=== PATIENT | male | born 1940 | race Two or more races ===

== ENCOUNTER 2017-07-19 08:55 | Day surgery (SDC) | payer MEDICARE ==
[2017-07-16 11:43] VITALS: BMI 25.8
[2017-07-19 10:19] LABS: Glucose,Whole Blood 114 mg/dL (75-99)
[2017-07-19] MEDS: LACTATED RINGERS 1,000 ML IV SCH ×2 (10:19→10:23)
[2017-07-19 10:21] VITALS: TEMP 98.6
[2017-07-19] MEDS ORDERED: PROPOFOL 10 MG/ML 20 ML VIAL IV ONE (10:25)
[2017-07-19 10:54] VITALS: RESP 16
--- NOTE | 2017-07-19 10:54 | P.PCN ---
Date of Procedure: 07/19/17 Procedure(s) Performed: Procedure: Colonoscopy and polypectomy. Preoperative diagnosis: Screening for neoplasia. Postoperative diagnosis: Small rectal polyp snared but no large polyps or cancer. Preparation: HalfLytely prep. Sedation: Was provided by anesthesia. Brief clinical history: The patient is a 77-year-old male who is scheduled for this evaluation for screening for neoplasia. He had a prior exam more than 10 years ago. The patient has no abdominal complaints, bleeding or anemia. Procedure: With the patient on his left lateral decubitus position and after informed consent and adequate sedation, the perianal area was inspected and it did not show any fissures or fistulas. There were no masses felt on digital rectal examination. The Olympus CFQ 160L video colonoscope was then inserted in the rectum in the usual fashion and advanced to the cecum. The mucosa appeared healthy. There was a small polyp in the rectum close to the anorectal junction which was snared and retrieved by suction but there were no large polyps or cancer or other significant pathology. I retroflexed the endoscope in the rectum before the endoscope was withdrawn. The patient tolerated the procedure well. Plan: The patient was reassured. Will await pathology results. Consideration can be given for repeat exam in 3-5 years depending on his overall health. He will follow up with you with as planned.
[2017-07-19 11:14] VITALS: BP 154/77; PULSE 69
== END 2017-07-19 11:50 | disposition home or self-care (01) ==
LOC: ORWHC2ENDO 08:55
DX: Z12.11 Encounter for screening for malignant neoplasm of colon (principal); K62.1 Rectal polyp; E11.9 Type 2 diabetes mellitus without complications; I10 Essential (primary) hypertension; E78.5 Hyperlipidemia, unspecified; Z79.84 Long term (current) use of oral hypoglycemic drugs; Z79.899 Other long term (current) drug therapy
CPT/HCPCS: 45385; 88305; J2704; 45380

== ENCOUNTER → 2019-01-24 | Outpatient (CLI) | payer MEDICARE ==
--- NOTE | 2019-01-25 15:07 | P.ARTDOP ---
Arterial Doppler LOWER EXTREMITY ARTERIAL DOPPLER: DATE OF SERVICE: 01/24/2019 Reason for study: Bilateral calf pain with walking. Doppler waveforms: Atypical bilaterally throughout. Pulse volume recording: []. Pressure gradients: Above the low thigh bilaterally. Ankle-brachial indices: 0.52 on the right and 0.44 on the left. Toe pressures: [] on the right, [] on the left Impression: Moderate bilateral iliofemoral occlusive disease. Suggest vascular surgical consultation..
== END | disposition home or self-care (01) ==
LOC: RADUSWWP 01-17 12:47
PROVIDERS: ATTEND Family Medicine
DX: I77.89 Other specified disorders of arteries and arterioles (principal)
CPT/HCPCS: 93923

== ENCOUNTER → 2019-03-02 | Outpatient (CLI) | payer MEDICARE ==
[2019-03-02 08:52] LABS: HCT 39.2 % (39.0-53.0); HGB 13.3 gm/dL (13.0-17.5); MCH 30.9 pg (25.0-35.0); MCHC 33.9 g/dL (31.0-37.0); MCV 91.2 fL (80.0-100.0); Mean Platelet Volume 6.6; Platelet Count 252 k/uL (150-450); WBC 6.5 k/uL (3.8-10.6)
[2019-03-02 09:02] LABS: African American GFR (CKD) >90 (>60 ml/min/1.73 sqM); Anion Gap 9 mmol/L; Blood Urea Nitrogen 14 mg/dL (9-20); Carbon Dioxide 25 mmol/L (22-30); Chloride 97 mmol/L (98-107); Non-African American GFR(CKD) 89 (>60 ml/min/1.73 sqM); Potassium 4.8 mmol/L (3.5-5.1); Sodium 131 mmol/L (137-145)
== END | disposition home or self-care (01) ==
LOC: LABPAT 08:25
PROVIDERS: ATTEND Internal Medicine Interventional Cardiology
DX: Z01.812 Encounter for preprocedural laboratory examination (principal); I70.213 Atherosclerosis of native arteries of extremities with intermittent claudication, bilateral legs
CPT/HCPCS: 80051; 82565; 84520; 85027

== ENCOUNTER → 2019-04-14 | Outpatient (CLI) | payer MEDICARE ==
[2019-04-14 07:32] LABS: HCT 39.1 % (39.0-53.0); HGB 13.1 gm/dL (13.0-17.5); MCH 30.5 pg (25.0-35.0); MCHC 33.5 g/dL (31.0-37.0); MCV 90.8 fL (80.0-100.0); Mean Platelet Volume 6.5; Platelet Count 264 k/uL (150-450); RDW 12.8 % (11.5-15.5); WBC 5.8 k/uL (3.8-10.6)
[2019-04-14 07:44] LABS: African American GFR (CKD) >90 (>60 ml/min/1.73 sqM); Anion Gap 9 mmol/L; Blood Urea Nitrogen 17 mg/dL (9-20); Carbon Dioxide 25 mmol/L (22-30); Chloride 94 mmol/L (98-107); Non-African American GFR(CKD) 89 (>60 ml/min/1.73 sqM); Sodium 128 mmol/L (137-145)
== END | disposition home or self-care (01) ==
LOC: LABPAT 06:37
PROVIDERS: ATTEND Internal Medicine Interventional Cardiology
DX: Z01.812 Encounter for preprocedural laboratory examination (principal); I70.213 Atherosclerosis of native arteries of extremities with intermittent claudication, bilateral legs
CPT/HCPCS: 80051; 82565; 84520; 85027

== ENCOUNTER 2019-04-20 07:01 | Day surgery (SDC) | payer MEDICARE ==
[2019-04-12 13:39] VITALS: BMI 25.8
[~2019-04-20 07:01] MED LIST: ALPRAZolam 0.25 MG TAB PO PRN; ALPRAZolam 0.5 MG TAB PO PRN; ASPIRIN 325 MG TAB PO STA; SODIUM CHLORIDE 0.9% 1,000 ML in EMPTY BAG 1 BAG IV ONE
[2019-04-20 07:44] LABS: Glucose,Whole Blood 124 mg/dL (75-99)
[2019-04-20] MEDS: MIDAZOLAM 2 MG/2 ML VIAL IV ONE ×2 (09:19→10:13)
[2019-04-20] MEDS ORDERED: LIDOCAINE 1% INJ 10MG/ML (20 ML MDV) SQ ONE (09:26)
[2019-04-20] MEDS ORDERED: SODIUM CHLORIDE 0.9% 500 ML 500 ML with niCARdipine 6.25 MG, NITROGLYCERIN-D5W PMX 0.05... IV ONE ×4 (10:00)
[2019-04-20] MEDS: fentaNYL (PF) 50 MCG/ML 2 ML AMP IVP ONE ×2 (10:37→11:27)
[2019-04-20] MEDS ORDERED: CLOPIDOGREL 75 MG TAB PO ONE (11:14)
[2019-04-20] MEDS ORDERED: IOPAMIDOL-250 100ML BTL INTRAARTER ONE (11:32)
[2019-04-20] MEDS ORDERED: HYDROmorphone 1 MG/ML 1 ML SYRINGE IVP ONE (11:51)
[2019-04-20] MEDS ORDERED: HYDROmorphone 0.5 MG/0.5 ML SYRINGE IVP PRN (11:51)
--- NOTE | 2019-04-20 12:29 | IR ---
EXAMINATION TYPE: IR stent intravas non coronary DATE OF EXAM: 04/20/2019 COMPARISON: NONE HISTORY: Fluoroscopy time. Fluoroscopy was provided to the referring clinician.
--- NOTE | 2019-04-20 14:41 | LTR ---
DATE OF SERVICE; 04/20/2019 RE: Juan Castelan Dear Dr. Chew; Mr. 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 I want to thank you for allowing me to participate in his care and please do not hesitate to call if you have any question or any concern. Sincerely, MD MUMTAZ Parisi / JANNETTEN: [id number] /
[2019-04-20] MEDS: HYDROmorphone 1 MG/ML 1 ML SYRINGE IVP PRN ×2 (17:05→21:05)
[2019-04-20] MEDS: SODIUM CHLORIDE 0.9% 1,000 ML in EMPTY BAG 1 BAG IV SCH ×9 (17:09→23:17)
[2019-04-20] MEDS ORDERED: SODIUM CHLORIDE 0.9% 1,000 ML IV SCH (17:15)
[2019-04-20 17:28] LABS: Glucose,Whole Blood 144 mg/dL (75-99)
[2019-04-20 20:39] LABS: Glucose,Whole Blood 179 mg/dL (75-99)
--- NOTE | 2019-04-20 23:54 | PCN ---
PROCEDURE NOTE PERCUTANEOUS PERIPHERAL INTERVENTION: DATE OF SERVICE: 04/20/2019 PERFORMING PHYSICIAN: Calos Casarez MD. PROCEDURES PERFORMED: 1. Left lower extremity angiogram. 2. Selective left anterior tibial artery angiogram. 3. Successful crossing of chronic total occlusion of the left superficial femoral artery. 4. Intravascular ultrasound (IVUS) of the left superficial femoral artery. 5. Balloon angioplasty and stenting of the left superficial femoral artery using 3 self-expandable stents with good angiographic results. 6. Selective right common femoral artery angiogram. INDICATION: This is a pleasant 78-year-old gentleman who was diagnosed recently with critical limb ischemia and nonhealing ulcer involving the left foot. He underwent an angiogram that revealed severe aortoiliac disease with severe disease involving the left common iliac artery as well as severe femoropopliteal disease with occluded bilateral SFA. APPROACH: Right common femoral artery and left anterior tibial artery. COMPLICATIONS: None. LEVEL OF SEDATION: Moderate, with sedation length of 136 minutes. PROCEDURE DESCRIPTION: After obtaining informed consent, the patient was brought to the cardiac chemistry laboratory technician. Initially I accessed the right common femoral artery using micropuncture technique under ultrasound guidance. The micropuncture wire passed easily. Then I placed an 11 cm 6-Ukrainian sheath in the right common femoral artery. Attempt to go up and over was unsuccessful because of the extreme calcification of the aortoiliac segments as well as extreme tortuosity. Because of that, I aborted the contralateral retrograde approach and I decided to go in ipsilateral retrograde approach from the left anterior tibial artery. I did access the left anterior tibial artery using micropuncture technique under ultrasound guidance. Then I placed a slender 5/6 sheath. Subsequently the patient was connected to a cocktail infusion including heparin, verapamil and nitroglycerins. After that I was able to cross the chronic total occlusion of the left SFA using 0.018 schaefer-tip glidewire with the backup support of 0.018 CXI catheter. I was able to advance the catheter all the way to the left common femoral artery, where I did selective left common femoral artery angiogram to prove that I was in the true lumen. After that I did exchange my 0.018 wire for an 0.014 wire. Then I did intravascular ultrasound (IVUS) of the left SFA, which showed that I was in the subintimal space most of the time. I was able to get a diameter of between 6 and 7 mm. After that I did balloon angioplasty of the whole left SFA using a Chocolate balloon which was a 6 x 120 mm balloon. After that the following angiogram showed inadequate angiographic results, and I decided to stent the whole SFA. I deployed in the proximal left SFA a 7 x 140 mm Zilver PTX and in the mid left SFA a 7 x 140 mm Zilver PTX, and in the distal left SFA a 7 x 150 Everflex self-expandable stent. I post-dilated the 3 stents using a 6 mm balloon. Following angiogram showed good angiographic results. The stent was slightly unexpandable in the mid portion. After that I did selective left anterior tibial artery angiogram which showed good flow below the knee, and at that point the procedure was completed without any complication. POST-PROCEDURE MANAGEMENT: 1. Dual anti-platelet therapy. 2. Risk factor modifications. 3. SPRING UPHOLSTERER of the left iliac. 4. At the same time of the SPRING UPHOLSTERER of the left iliac, I would check the left SFA. 5. Possible endarterectomy of the left profunda down the line as well if the ulcer does not heal. MMODL / IJN: [id number] /
[2019-04-21 06:10] LABS: Glucose,Whole Blood 125 mg/dL (75-99)
[2019-04-21] MEDS: SODIUM CHLORIDE 0.9% 1,000 ML in EMPTY BAG 1 BAG IV SCH (06:22)
[2019-04-21 07:23] LABS: African American GFR (CKD) >90 (>60 ml/min/1.73 sqM); Anion Gap 9 mmol/L; Blood Urea Nitrogen 15 mg/dL (9-20); Calcium 9.5 mg/dL (8.4-10.2); Carbon Dioxide 24 mmol/L (22-30); Chloride 97 mmol/L (98-107); Glucose 133 mg/dL (74-99); Non-African American GFR(CKD) >90 (>60 ml/min/1.73 sqM); Potassium 4.6 mmol/L (3.5-5.1); Sodium 130 mmol/L (137-145)
[2019-04-21 07:37] LABS: Basophils % (A) 0 %; Eosinophils # (A) 0.2 k/uL (0-0.7); Eosinophils % (A) 2 %; HCT 40.4 % (39.0-53.0); HGB 13.2 gm/dL (13.0-17.5); Lymphocytes # (A) 0.9 k/uL (1.0-4.8); Lymphocytes % (A) 10 %; MCHC 32.8 g/dL (31.0-37.0); MCV 91.6 fL (80.0-100.0); Mean Platelet Volume 6.4; Monocytes # (A) 0.6 k/uL (0-1.0); Monocytes % (A) 6 %; Neutrophils # (A) 6.9 k/uL (1.3-7.7); Neutrophils % (A) 77 %; Platelet Count 268 k/uL (150-450); RBC 4.41 m/uL (4.30-5.90); RDW 12.7 % (11.5-15.5)
[2019-04-21 08:13] VITALS: BP 155/68; PULSE 81; RESP 18; TEMP 98.1
--- NOTE | 2019-04-21 08:56 | DS ---
DISCHARGE SUMMARY ADMISSION DATE: April 20, 2019. DISCHARGE DATE: April 21, 2019 BRIEF HISTORY: This is a 78-year-old gentleman who underwent yesterday successful recanalizing chronic total occlusion of the left SFA from right common femoral artery and left anterior tibial approach. The procedure was performed without any complication with good angiographic results. The patient was seen this morning. The right groin is soft and nontender and without any bruises and he does have 1+ dorsalis pedis pulse. The patient is going to be discharged home on dual antiplatelet therapy and I will follow up with the patient next week in the office. MMODL / IJN: [id number] /
[2019-04-21] MEDS ORDERED: LISINOPRIL 20 MG TAB PO SCH (09:00)
[2019-04-21] MEDS ORDERED: GARLIC PO SCH (09:00)
[2019-04-21] MEDS ORDERED: OREGANO PO SCH (09:00)
[2019-04-21] MEDS ORDERED: COGNIUM PO SCH (09:00)
[2019-04-21] MEDS ORDERED: CLOPIDOGREL 75 MG TAB PO SCH (09:00)
[2019-04-21] MEDS ORDERED: ASPIRIN 325 MG TAB PO SCH (09:00)
[2019-04-21] MEDS ORDERED: ASCORBIC ACID 500 MG TAB PO SCH (09:00)
[2019-04-21] MEDS ORDERED: CHOLECALCIFEROL 1,000 UNIT TAB PO SCH (09:00)
[2019-04-21] MEDS ORDERED: ATORVASTATIN 10 MG TAB PO SCH (09:00)
== END 2019-04-21 10:17 | disposition home or self-care (01) ==
LOC: CATHCVL 07:01 → 3SCARD 14:50 → CATHCVL 04-21 10:17
PROVIDERS: ATTEND Internal Medicine Interventional Cardiology
DX: I70.212 Atherosclerosis of native arteries of extremities with intermittent claudication, left leg (principal); I70.92 Chronic total occlusion of artery of the extremities; Z72.0 Tobacco use; E11.51 Type 2 diabetes mellitus with diabetic peripheral angiopathy without gangrene; E11.621 Type 2 diabetes mellitus with foot ulcer; L97.521 Non-pressure chronic ulcer of other part of left foot limited to breakdown of skin; I10 Essential (primary) hypertension; E78.5 Hyperlipidemia, unspecified; Z79.84 Long term (current) use of oral hypoglycemic drugs; Z82.49 Family history of ischemic heart disease and other diseases of the circulatory system; Z79.2 Long term (current) use of antibiotics; Z79.899 Other long term (current) drug therapy
CPT/HCPCS: 37226; 85347; 37252; 80048; 85025; C1894; C1769 ×5; C1725 ×2; C1714; C1753; C1876; C1874; J2250; J1644 ×2; J2001; J3010; J1170; Q9966

== ENCOUNTER → 2019-05-19 | Outpatient (CLI) | payer MEDICARE ==
[2019-05-19 07:03] LABS: HGB 13.1 gm/dL (13.0-17.5); MCH 30.1 pg (25.0-35.0); MCHC 33.6 g/dL (31.0-37.0); MCV 89.5 fL (80.0-100.0); Mean Platelet Volume 6.5; Platelet Count 232 k/uL (150-450); RBC 4.37 m/uL (4.30-5.90); RDW 12.9 % (11.5-15.5); WBC 5.5 k/uL (3.8-10.6)
[2019-05-19 07:13] LABS: African American GFR (CKD) >90 (>60 ml/min/1.73 sqM); Anion Gap 9 mmol/L; Blood Urea Nitrogen 14 mg/dL (9-20); Carbon Dioxide 25 mmol/L (22-30); Chloride 94 mmol/L (98-107); Non-African American GFR(CKD) 86 (>60 ml/min/1.73 sqM); Potassium 5.1 mmol/L (3.5-5.1); Sodium 128 mmol/L (137-145)
== END | disposition home or self-care (01) ==
LOC: LABPAT 06:40
PROVIDERS: ATTEND Internal Medicine Interventional Cardiology
DX: Z01.818 Encounter for other preprocedural examination (principal); I70.213 Atherosclerosis of native arteries of extremities with intermittent claudication, bilateral legs
CPT/HCPCS: 36415; 80051; 82565; 84520; 85027

== ENCOUNTER 2019-05-24 07:29 | Day surgery (SDC) | payer MEDICARE ==
[2019-05-23 11:43] VITALS: BMI 24.7
[2019-05-24 08:06] LABS: Glucose,Whole Blood 141 mg/dL (75-99)
[2019-05-24] MEDS ORDERED: LIDOCAINE 1% INJ 10MG/ML (20 ML MDV) SQ ONE (08:49)
[2019-05-24] MEDS: VERAPAMIL SYRINGE (5 MG/10 ML) INTRAARTER ONE ×2 (08:51→10:09)
[2019-05-24] MEDS ORDERED: MIDAZOLAM 2 MG/2 ML VIAL IV ONE (08:51)
[2019-05-24] MEDS ORDERED: HEPARIN SODIUM 1,000 UN/ML (10ML VL) IV ONE (08:52)
[2019-05-24] MEDS ORDERED: fentaNYL (PF) 50 MCG/ML 2 ML AMP IV ONE (09:21)
[2019-05-24] MEDS ORDERED: HYDROmorphone 1 MG/ML 1 ML SYRINGE IVP ONE (09:53)
[2019-05-24] MEDS ORDERED: CLOPIDOGREL 75 MG TAB PO ONE (09:57)
[2019-05-24] MEDS ORDERED: IOPAMIDOL-250 100ML BTL INTRAARTER ONE (10:09)
--- NOTE | 2019-05-24 10:26 | P.PCN ---
Date of Procedure: 05/24/19 Operative Findings: PERCUTANEOUS PERIPHERAL INTERVENTION Performing physician Calos Casarez M.D, RPVI Procedure performed Selective bilateral common and external iliac arteries angiogram Successful stenting of the right external iliac artery using 7.0 x 15 mm Omnilink balloon expandable stent with an excellent angiographic results Gradient measurement across the left common iliac artery Successful stenting of the left common iliac artery using 8.0 x 29 mm Omnilink balloon expandable stent with an excellent angiographic results Indication this is a 59-year-old gentleman who was diagnosed recently was critical limb ischemia and bilateral lower extremities intermittent claudication. He underwent an angiogram which revealed occluded bilateral SFA with severe disease involving bilateral iliacs. He was brought today to undergo an intervention. Approach Right radial artery Complications None Level of sedation Moderate with sedation length of 85 minutes Procedure description After obtaining an informed consent the patient was brought to the cardiac label designer. The right radial artery was cannulated using micropuncture technique, the micropuncture wire passed easily then I place initially a 6-Maltese 11 cm sheath at the right radial artery. Subsequently the patient was given a total of 10,000 use of heparin IV. Also I gave the patient 2 mg of verapamil IV. Subsequently I did selective the right common and external iliac artery using 035 glide advantage wire. Then I did exchange my 11 cm sheath into 110 cm 6- Maltese sheath using the awl 35 glide advantage wire. The sheath was advanced all the way to the right common iliac artery. I did selective right common and right external iliac artery angiogram which revealed critical disease involving the right external iliac artery. Subsequently I did predilatation of the lesion using 6 cm balloon before I deployed 7 x 59 mm Omnilink balloon expandable stent where the stent was positioned under fluoroscopy guidance and deployed under its nominal pressure with the following angiogram showing good angiographic results. After that I did selective the left common and external iliac artery using stiff Glidewire. Then I did selective left common iliac artery and left external iliac artery angiogram which revealed intermediate severe lesion involving the left common iliac artery. I did gradient measurement across it and that came in to be at 18 mmHg and I decided to pursue with percutaneous peripheral intervention. After that I did direct stenting of the lesion using 8.0 x 29 mm Omnilink balloon expandable stent where the stent was positioned under fluoroscopy guidance and deployed under 20 connor for 20 seconds and I posterior to the stent using 10 mm balloon. The following angiogram showed an excellent angiographic results The procedure was completed without any complications By the end I did pull the long sheath and I placed a TR band. The procedure was completed without any complications Postprocedure management Dual antiplatelet therapy to be continued Risk factors modifications Follow-up with the patient
[2019-05-24] MEDS ORDERED: SODIUM CHLORIDE 0.9% 1,000 ML in EMPTY BAG 1 BAG IV SCH (10:30)
[2019-05-24 11:41] LABS: Glucose,Whole Blood 180 mg/dL (75-99)
--- NOTE | 2019-05-24 13:38 | IR ---
EXAMINATION TYPE: IR stent intravas non coronary DATE OF EXAM: 05/24/2019 CLINICAL HISTORY: Peripheral vascular disease. TECHNIQUE: Fluoroscopy. COMPARISON: None. FINDINGS: Fluoroscopic guidance was provided during abdominal angiogram with iliac stenting procedur e performed by Dr. Casarez. A total of 23.7 minute of fluoroscopic time was utilized during the procedu re and 15 cine runs are acquired. Please refer to procedure note for further details if necessary. IMPRESSION: As Above.
[2019-05-24] MEDS: ACETAMINOPHEN TAB 325 MG TAB PO PRN ×2 (15:39→21:46)
[2019-05-24 16:34] LABS: Glucose,Whole Blood 272 mg/dL (75-99)
[2019-05-24 21:00] LABS: Glucose,Whole Blood 148 mg/dL (75-99)
[2019-05-25 00:38] VITALS: RESP 18
[2019-05-25 06:21] LABS: Glucose,Whole Blood 154 mg/dL (75-99)
[2019-05-25 06:40] LABS: HCT 32.1 % (39.0-53.0); HGB 10.9 gm/dL (13.0-17.5); MCH 30.5 pg (25.0-35.0); MCHC 33.9 g/dL (31.0-37.0); Mean Platelet Volume 6.5; Platelet Count 236 k/uL (150-450); RBC 3.57 m/uL (4.30-5.90); RDW 13.1 % (11.5-15.5); WBC 7.8 k/uL (3.8-10.6)
[2019-05-25 06:53] LABS: African American GFR (CKD) >90 (>60 ml/min/1.73 sqM); Anion Gap 4 mmol/L; Blood Urea Nitrogen 17 mg/dL (9-20); Calcium 8.9 mg/dL (8.4-10.2); Carbon Dioxide 26 mmol/L (22-30); Chloride 98 mmol/L (98-107); Glucose 128 mg/dL (74-99); Non-African American GFR(CKD) >90 (>60 ml/min/1.73 sqM); Potassium 4.6 mmol/L (3.5-5.1); Sodium 128 mmol/L (137-145)
[2019-05-25 07:07] LABS: Band Neutrophils % 1 %; Eosinophils # (M) 0.39 k/uL (0-0.7); Lymphocytes # (M) 1.01 k/uL (1.0-4.8); Monocytes # (M) 0.39 k/uL (0-1.0); Neutrophils % (M) 76 %; Nucleated Red Blood Cells 0 /100 WBC (0-0); Total Cells Counted 100
[2019-05-25] MEDS: ACETAMINOPHEN TAB 325 MG TAB PO PRN (07:47)
[2019-05-25 08:00] VITALS: BP 127/61; PULSE 82; TEMP 97.8
[2019-05-25] MEDS ORDERED: GARLIC PO SCH (09:00)
[2019-05-25] MEDS ORDERED: ASPIRIN 325 MG TAB PO SCH (09:00)
[2019-05-25] MEDS ORDERED: CLOPIDOGREL 75 MG TAB PO SCH (09:00)
[2019-05-25] MEDS ORDERED: COGNIUM PO SCH (09:00)
[2019-05-25] MEDS ORDERED: LISINOPRIL 20 MG TAB PO SCH (09:00)
[2019-05-25] MEDS ORDERED: OREGANO PO SCH (09:00)
[2019-05-25] MEDS ORDERED: ASCORBIC ACID 500 MG TAB PO SCH (09:00)
[2019-05-25] MEDS ORDERED: ATORVASTATIN 10 MG TAB PO SCH (09:00)
[2019-05-25] MEDS ORDERED: CHOLECALCIFEROL 1,000 UNIT TAB PO SCH (09:00)
--- NOTE | 2019-05-25 11:57 | P.DS ---
Providers Date of admission: May 232019 Attending physician: Calos Casarez Primary care physician: [facility] Course: This is a pleasant 79-year-old gentleman who underwent yesterday successful stenting of the right and left iliac arteries from right radial approach. He was seen this morning. The right radial site a soft and nontender and without any bruises. The patient is going to be discharged home on dual antiplatelet therapy and I will follow-up with the patient next week in the office Plan - Discharge Summary Discharge Rx Participant: No New Discharge Prescriptions: Continue metFORMIN HCL [Glucophage] 1,000 mg PO BID Lisinopril [Zestril] 20 mg PO DAILY Simvastatin [Zocor] 20 mg PO DAILY Garlic 1 each PO DAILY Cholecalciferol [Vitamin D3 (25 Mcg = 1000 Iu)] 3,000 unit PO DAILY Ascorbic Acid [Vitamin C] 500 mg PO DAILY Oregano 1 tab PO DAILY Cognium 1 tab PO DAILY Aspirin 325 mg PO DAILY #90 tab Clopidogrel [Plavix] 75 mg PO DAILY #90 tab Discharge Medication List Lisinopril [Zestril] 20 mg PO DAILY 07/16/17 [History] Simvastatin [Zocor] 20 mg PO DAILY 07/16/17 [History] metFORMIN HCL [Glucophage] 1,000 mg PO BID 07/16/17 [History] Ascorbic Acid [Vitamin C] 500 mg PO DAILY 04/12/19 [History] Cholecalciferol [Vitamin D3 (25 Mcg = 1000 Iu)] 3,000 unit PO DAILY 04/12/19 [History] Cognium 1 tab PO DAILY 04/12/19 [History] Garlic 1 each PO DAILY 04/12/19 [History] Oregano 1 tab PO DAILY 04/12/19 [History] Aspirin 325 mg PO DAILY #90 tab 04/20/19 [Rx] Clopidogrel [Plavix] 75 mg PO DAILY #90 tab 04/20/19 [Rx] Follow up Appointment(s)/Referral(s): Calos Casarez MD [STAFF PHYSICIAN] - 06/05/19 2:30 pm Patient Instructions/Handouts: Heart Healthy Diet (DC), Peripheral Vascular Angioplasty (DC) Activity/Diet/Wound Care/Special Instructions: Peripheral vascular angioplasty: 1. Watch for any excessive bruising, active bleeding, a firm knot forming under your skin, extreme tenderness and signs of infection (redness, swelling, fever). 2. Shower daily, do not soak puncture in a tub bath, jacuzzi, pool, rahman etc. for 1 week. This is to prevent risk of infection. 3. Drink plenty of fluids the day of and day after your procedure to flush contrast dye out of your kidneys. 4. Take all medications as directed. Never stop any new medication without your physicians OK. 5. No driving for 2 days after procedure. 6. 10- pound weight lifting restriction for 1 week. 7. Low sodium/low fat diet. 8. Activity limited until follow up appointment with your director security risk management. In case of any problems, please call [facility] [place] @ [phone]. Discharge Disposition: HOME SELF-CARE
== END 2019-05-25 11:13 | disposition home or self-care (01) ==
LOC: CATHCVL 07:29 → 3SCARD 11:03 → CATHCVL 05-25 11:13
PROVIDERS: ATTEND Internal Medicine Interventional Cardiology
DX: E11.51 Type 2 diabetes mellitus with diabetic peripheral angiopathy without gangrene (principal); I70.212 Atherosclerosis of native arteries of extremities with intermittent claudication, left leg; I70.235 Atherosclerosis of native arteries of right leg with ulceration of other part of foot; E11.621 Type 2 diabetes mellitus with foot ulcer; L97.529 Non-pressure chronic ulcer of other part of left foot with unspecified severity; Z82.49 Family history of ischemic heart disease and other diseases of the circulatory system; I10 Essential (primary) hypertension; E78.5 Hyperlipidemia, unspecified; Z72.0 Tobacco use; Z79.84 Long term (current) use of oral hypoglycemic drugs; Z79.02 Long term (current) use of antithrombotics/antiplatelets; Z79.82 Long term (current) use of aspirin; Z79.899 Other long term (current) drug therapy
CPT/HCPCS: 92610; 37221; 85347; 80048; 85025; C1894 ×2; C1725 ×2; C1876; C1769 ×5; C1887; J2250; J2001; J3010; J1644; J1170; Q9966

== ENCOUNTER → 2019-09-15 | Outpatient (CLI) | payer MEDICARE ==
--- NOTE | 2019-09-15 08:27 | XR ---
Cervical spine HISTORY: Numbness in upper extremities, neck pain, radiculopathy 6 views of the cervical spine There is marked multilevel hypertrophic spondylosis. Cervical vertebral bodies show preserved height. There is loss of disc height at intervertebral levels with associated vacuum phenomenon especially a t C3-4, C4-5, C6-7. Loss of disc height present at C2-3, C3-4, C4-5, C6-7. Calcified intervertebral d iscs suspected at C5-6. Foraminal encroachment is noted at C2-3, C3-4, C4-5 bilaterally, there is fac et arthropathy change. IMPRESSION: Degenerative disc disease.
== END | disposition home or self-care (01) ==
LOC: RADXRMAIN 07:29
PROVIDERS: ATTEND Family Medicine
DX: M50.10 Cervical disc disorder with radiculopathy, unspecified cervical region (principal)
CPT/HCPCS: 72050

== ENCOUNTER → 2021-04-15 | Outpatient (CLI) | payer MEDICARE ==
[2021-04-15 14:54] LABS: African American GFR (CKD) 100.9 (60.0-200.0); Anion Gap 9.4 mmol/L (10.00-18.00); BUN/Creat Ratio 35.44 Ratio (12.00-20.00); Blood Urea Nitrogen 26.3 mg/dL (9.0-27.0); Calcium 9.6 mg/dL (8.7-10.3); Carbon Dioxide 22.8 mmol/L (20.0-27.5); Magnesium 1.9 mg/dL (1.5-2.4); Potassium 5.4 mmol/L (3.5-5.5)
== END | disposition home or self-care (01) ==
LOC: LABWHC1 08:47
PROVIDERS: ATTEND Nurse Practitioner Adult Health
DX: I10 Essential (primary) hypertension (principal)
CPT/HCPCS: 36415; 80048; 83735; 83880

== ENCOUNTER 2021-05-02 07:40 | Day surgery (SDC) | payer MEDICARE ==
[2021-05-01 11:24] VITALS: BMI 26.4
[~2021-05-02 07:40] MED LIST changes: -ALPRAZolam 0.5 MG TAB PO PRN; +ASPIRIN 325 MG TAB PO PRN; -ASPIRIN 325 MG TAB PO STA; +HEPARIN SODIUM,PORCINE 10,000 UNIT in SODIUM CHLORIDE 0.9% 1,000 ML IRRIGATION PRN; +HEPARIN SODIUM,PORCINE 2,500 UNIT in SODIUM CHLORIDE 0.9% 250 ML IRRIGATION PRN; +ZOLPIDEM 5 MG TAB PO PRN
[2021-05-02] MEDS ORDERED: ASPIRIN 81 MG ONE (09:14)
[2021-05-02] MEDS ORDERED: SODIUM CHLORIDE 0.9% 1,000 ML IV ONE (09:16)
[2021-05-02] MEDS ORDERED: CLOPIDOGREL 75 MG TAB ONE (09:19)
[2021-05-02 09:37] LABS: Glucose,Whole Blood 134 mg/dL (75-99)
[2021-05-02 09:52] LABS: Basophils % (A) 1 %; Eosinophils # (A) 0.2 k/uL (0-0.7); Eosinophils % (A) 2 %; HCT 38.9 % (39.0-53.0); HGB 12.9 gm/dL (13.0-17.5); Lymphocytes # (A) 0.8 k/uL (1.0-4.8); Lymphocytes % (A) 12 %; MCH 30.4 pg (25.0-35.0); MCHC 33.2 g/dL (31.0-37.0); MCV 91.4 fL (80.0-100.0); Mean Platelet Volume 6.6; Monocytes # (A) 0.6 k/uL (0-1.0); Monocytes % (A) 8 %; Neutrophils # (A) 4.8 k/uL (1.3-7.7); Neutrophils % (A) 72 %; Platelet Count 258 k/uL (150-450); RBC 4.25 m/uL (4.30-5.90); RDW 13.3 % (11.5-15.5); WBC 6.7 k/uL (3.8-10.6)
[2021-05-02] MEDS ORDERED: MIDAZOLAM 2 MG/2 ML VIAL IV ONE (13:26)
[2021-05-02] MEDS ORDERED: LIDOCAINE 1% INJ 10MG/ML (20 ML MDV) SQ ONE (13:26)
[2021-05-02] MEDS ORDERED: IOPAMIDOL-250 100ML BTL INTRAARTER ONE (13:40)
[2021-05-02] MEDS ORDERED: NALOXONE 0.4 MG/ML 10 ML VIAL IVP PRN (13:44)
[2021-05-02] MEDS ORDERED: SODIUM CHLORIDE 0.9% 1,000 ML in EMPTY BAG 1 BAG IV SCH (13:45)
--- NOTE | 2021-05-02 13:48 | P.PCN ---
Date of Procedure: 05/02/21 Operative Findings: AN ABDOMINAL AORTOGRAM AND BILATERAL LOWER EXTREMITIES RUNOFF PERFORMING PHYSICIAN: Calos Casarez MD PROCEDURE PERFORMED: 1. An abdominal aortogram 2. Bilateral lower extremities runoff INDICATION: Critical limb ischemia of the right COMPLICATION: None LEVEL OF SEDATION: Moderate was sedation length of 15 minutes APPROACH: Right common femoral artery PROCEDURE DESCRIPTION: After obtaining informed consent and explaining the procedure benefits, risks, and complications, the patient was brought to the cardiac labor contractor. The right groin was prepped and draped in sterile fashion. The right common femoral artery was cannulated using micropuncture technique, under ultrasound guidance. A micropuncture wire was advanced, and the micropuncture sheath was advanced over the wire, then the micropuncture sheath was exchanged over an 0.35 wire into a 5-American sheath dilator assembly then the wire and dilator were removed and sheath was flushed. We did an abdominal aortogram and bilateral lower extremities runoff using 5- American pigtail catheter using a power injection. The catheter was initially placed at the level of the renal arteries, and it was pulled into above the bifurcation of the aorta into right and left common iliac arteries. The procedure was completed and there was no complications. SELECTIVE PERIPHERAL ANGIOGRAM: The abdominal aorta: Has mild disease only The common iliac arteries: The right and left common iliac arteries appeared to have mild disease only The external iliac arteries: The right external iliac artery is a stented and the stent is patent. Left external iliac artery is patent The internal iliac arteries: Both appeared to be patent The common femoral arteries: The right common femoral artery appeared to have an eccentric plaque in the range of 80-90%. The left common femoral artery appeared to have a plaque in the range of 50% Superficial femoral arteries: The right SFA is occluded from the ostium all the way to the popliteal. The left SFA is a stented with severe instent restenosis in the midportion Popliteal arteries: The right popliteal appeared to have severe disease. The left popliteal stented and the stent is patent Below the knees: There are 3 vessels run off below the knee bilaterally CONCLUSION: Severe eccentric lesion involving the right common femoral artery Occluded right SFA Severe disease involving the left SFA POSTPROCEDURE MANAGEMENT: Endarterectomy of the right common femoral artery are subsequently TUB PULLER of the right SFA if the patient continues to be symptomatic
[2021-05-02] MEDS ORDERED: hydrALAZINE HCL 20 MG/ML 1 ML VIAL ONE (14:22)
[2021-05-02] MEDS ORDERED: hydrALAZINE HCL 20 MG/ML 1 ML VIAL IVP PRN (14:28)
[2021-05-02] MEDS: HYDROmorphone 1 MG/ML 1 ML SYRINGE IVP PRN ×2 (14:33→17:17)
[2021-05-02 14:49] VITALS: RESP 16
[2021-05-02 15:37] VITALS: TEMP 97.6
[2021-05-02 17:12] LABS: Glucose,Whole Blood 151 mg/dL (75-99)
[2021-05-02 18:31] VITALS: BP 147/86; PULSE 74
[2021-05-02] MEDS ORDERED: lisinopriL 20 MG TAB PO SCH (21:00)
[2021-05-02] MEDS ORDERED: ATORVASTATIN 10 MG TAB PO SCH (21:00)
[2021-05-02] MEDS ORDERED: LATANOPROST 0.005% OPHTH DROPS 2.5 ML BTL BOTH EYES SCH (21:00)
[2021-05-03] MEDS ORDERED: PANTOPRAZOLE 40 MG TABLET PO SCH (07:30)
[2021-05-03] MEDS ORDERED: ASPIRIN 81 MG PO SCH (09:00)
[2021-05-03] MEDS ORDERED: [UNRECOGNIZED DRUG - OTHER] PO SCH (09:00)
[2021-05-03] MEDS ORDERED: CHOLECALCIFEROL 25 MCG (1000 IU) TABLET PO SCH (09:00)
[2021-05-03] MEDS ORDERED: ASCORBIC ACID 500 MG TAB PO SCH (09:00)
[2021-05-03] MEDS ORDERED: CLOPIDOGREL 75 MG TAB PO SCH (09:00)
[2021-05-03] MEDS ORDERED: NON FORMULARY DRUG (Garlic [Garlic] 1 EACH Tablet) PO SCH (09:00)
[2021-05-03] MEDS ORDERED: MULTIVITAMINS, THERA 1 EACH TAB PO SCH (09:00)
[2021-05-04] MEDS ORDERED: metFORMIN 500 MG TAB PO SCH ×2 (09:00→21:00)
== END 2021-05-02 20:01 | disposition home or self-care (01) ==
LOC: CATHCVL 07:40 → 6NMEDSUR 13:39 → CATHCVL 20:01
PROVIDERS: ATTEND Internal Medicine Interventional Cardiology
DX: E11.51 Type 2 diabetes mellitus with diabetic peripheral angiopathy without gangrene (principal); I70.221 Atherosclerosis of native arteries of extremities with rest pain, right leg; I10 Essential (primary) hypertension; I77.1 Stricture of artery; Z82.49 Family history of ischemic heart disease and other diseases of the circulatory system; Z72.0 Tobacco use; Z95.820 Peripheral vascular angioplasty status with implants and grafts; Z79.84 Long term (current) use of oral hypoglycemic drugs; Z79.82 Long term (current) use of aspirin; Z79.899 Other long term (current) drug therapy
CPT/HCPCS: 36200; 75625; 75716; 76937; 85025; 87635; C1769 ×3; J2250; J0360; J2001; J1170; Q9966

== ENCOUNTER 2021-05-12 12:10 | Emergency (ER) | payer MEDICARE ==
[2021-05-12 12:35] VITALS: PULSE 68; TEMP 97.6
[2021-05-12] MEDS ORDERED: DIPH,PERTUS(ACELL)TETVAC-LF 0.5 ML VIAL IM ONE (12:58)
--- NOTE | 2021-05-12 13:58 | CT ---
EXAMINATION TYPE: CT brain cspine wo con DATE OF EXAM: 05/12/2021 COMPARISON: X-ray dated 09/15/2019 HISTORY: Fall today. Frontal injury, right eye bruising and upper lip swelling. CT DLP: 1103 mGycm Automated exposure control for dose reduction was used. TECHNIQUE: CT scan of the head and cervical spine are performed without contrast. FINDINGS: Brain: Brain volume loss changes. Scattered arterial atherosclerotic calcifications. No acute intracranial h emorrhage or gross acute cortical infarct. No midline shift or herniation. Unremarkable sella, basal cisterns and CP angles. No gross space-occupying lesion, vasogenic edema or mass effect. Anterior fro ntal scalp swelling/hematoma. Right periorbital soft tissue swelling and right orbital gas, kindly refer to the separate dictation of the facial bone CT scan. Mucosal thickening of the left sphenoid sinus compartment and ethmoid air cells. Questionable minimal opacification of the right mastoid air cells. Osteopenia. No definite ac creek calvarial bone fracture identified. Cervical spine: Reversal of normal cervical curvature. No significant anterolisthesis or retrolisthesis. No definite vertebral body collapse or acute displaced fracture. Unremarkable atlantoaxial and atlantooccipital a rticulations. Severe degenerative changes of the cervical spine seen from C2-3 down to C6-7 level with multilevel o pposing endplate osteophytosis, markedly degenerated discs, multilevel subchondral sclerotic changes, multilevel uncovertebral and facet osteoarthropathy. Multilevel facet fusion is also noted. Fused C5 and C6 vertebrae. Spinal canal stenosis is seen at C2-3, C3-4, C4-5 and C6-7 levels. Multilevel neural foraminal stenosis is also noted, most evident at C3-4, C4-5 and C6-7 levels. Scatt ered arterial atherosclerotic calcifications. No paraspinal lesion. Irregular opacity in the right beverley ng apex measuring up to 2.5 cm, nonspecific. Further dedicated CT scan of the chest can be considered for better assessment. IMPRESSION: 1. No acute intracranial posttraumatic sequela or acute calvarial bone fracture. 2. Anterior frontal scalp hematoma/swelling. Suspected right orbital injury, kindly refer to the sepa rate dictation of the CT scan of the facial bones. 3. No acute traumatic bony injury of the cervical spine 4. Marked degenerative changes of the cervical spine as described above. 5. Right pulmonary apex irregular lesion as described above, for further elective CT scan of the ches t assessment. Other incidental findings as described above.
--- NOTE | 2021-05-12 14:00 | ED ---
General Adult HPI <Roxy Roblero - Last Filed: 05/12/21 18:07> - General Source: patient, EMS, RN notes reviewed, old records reviewed Mode of arrival: EMS Limitations: physical limitation <Slim [place] - Last Filed: 05/13/21 12:53> - General Chief complaint: Fall Stated complaint: head injury Time Seen by Provider: 05/12/21 12:30 - History of Present Illness Initial comments: This is an 81-year-old male presents emergency Department because he states he tripped and hit his right side of his face. His eye is quite swollen he has a small laceration on his nose. Patient states he did not lose consciousness he does not have a headache he is on Plavix. Patient states he denies any neck juan manuel n any numbness or weakness. Patient denies any chest back pain or abdominal pain. Patient denies any extremity pain. Patient states prior to falling was having no problems at all he just tripped accidentally. (Slim [place]) - Related Data Home Medications Medication Instructions Recorded Confirmed Simvastatin [Zocor] 20 mg PO HS 07/16/17 05/12/21 lisinopriL [Zestril] 20 mg PO HS 07/16/17 05/12/21 metFORMIN HCL [Glucophage] 1,500 mg PO QAM 07/16/17 05/12/21 Ascorbic Acid [Vitamin C] 500 mg PO DAILY 04/12/19 05/12/21 Garlic 1 tab PO DAILY 04/12/19 05/12/21 Oregano 1 tab PO DAILY 04/12/19 05/12/21 Aspirin 81 mg PO DAILY 05/01/21 05/12/21 Bladder/Prostate Rx Otc 1 tab PO DAILY 05/01/21 05/12/21 Latanoprost/Pf [Latanoprost 0.005% 1 drop BOTH EYES HS 05/01/21 05/12/21 Eye Drop] Multivitamins, Thera [Multivitamin 1 tab PO DAILY 05/01/21 05/12/21 (formulary)] Omeprazole [PriLOSEC] 20 mg PO AC-BRKFST 05/01/21 05/12/21 metFORMIN HCL [Glucophage] 1,000 mg PO HS 05/01/21 05/12/21 Cholecalciferol (Vitamin D3) 75 mcg PO DAILY 05/12/21 05/12/21 [Vitamin D3 (3000 Iu)] Previous Rx's Medication Instructions Recorded Clopidogrel [Plavix] 75 mg PO DAILY #90 tab 04/20/19 Cephalexin [Keflex] 500 mg PO Q6HR #20 cap 05/12/21 Allergies Allergy/AdvReac Type Severity Reaction Status Date / Time No Known Allergies Allergy Verified 05/01/21 10:58 Review of Systems ROS Other: All systems not noted in ROS Statement are negative. <Roxy Roblero - Last Filed: 05/12/21 18:07> ROS Other: All systems not noted in ROS Statement are negative. <Slim [place] - Last Filed: 05/13/21 12:53> ROS Statement: Those systems with pertinent positive or pertinent negative responses have been documented in the HPI. Past Medical History Past Medical History: Diabetes Mellitus, Eye Disorder, Hyperlipidemia, Hypertension, Prostate Disorder, Vascular Disorder Additional Past Medical History / Comment(s): Glaucoma. Dysphagia. BPH. Dryness legs. History of Any Multi-Drug Resistant Organisms: None Reported Past Surgical History: Adenoidectomy, Tonsillectomy Additional Past Surgical History / Comment(s): COLONOSCOPY. BILAT CATARACTS. PTBA Lt leg; PTBA w/ stent Rt leg. Past Anesthesia/Blood Transfusion Reactions: No Reported Reaction Past Psychological History: No Psychological Hx Reported Smoking Status: Former smoker Past Alcohol Use History: None Reported Past Drug Use History: None Reported - Past Family History Mother Family Medical History: Cancer Father Family Medical History: CVA/TIA <Slim [place] - Last Filed: 05/13/21 12:53> General Exam Limitations: physical limitation <Slim [place] - Last Filed: 05/13/21 12:53> - General Exam Comments Initial Comments: GENERAL: Patient is well-developed and well-nourished. Patient is nontoxic and well- hydrated and is in mild distress. ENT: Neck is soft and supple. No significant lymphadenopathy is noted. Oropharynx is clear. Moist mucous membranes. Neck has full range of motion without eliciting any pain. EYES: The sclera were anicteric and conjunctiva were pink and moist. Patient has right periorbital ecchymosis. Extraocular movements were intact and pupils were equal round and reactive to light. Eyelids were unremarkable. PULMONARY: Unlabored respirations. Good breath sounds bilaterally. No audible rales rhonchi or wheezing was noted. CARDIOVASCULAR: There is a regular rate and rhythm without any murmurs gallops or rubs. ABDOMEN: Soft and nontender with normal bowel sounds. SKIN: Patient has a small laceration to his nose about a half a centimeter which is well approximated. NEUROLOGIC: Patient is alert and oriented x3. Cranial nerves II through XII are grossly intact. Motor and sensory are also intact. Normal speech, volume and content. Symmetrical smile. MUSCULOSKELETAL: Normal extremities with adequate strength and full range of motion. LYMPHATICS: No significant lymphadenopathy is noted PSYCHIATRIC: Normal psychiatric evaluation. Patient also has a nose on the center of his forehead just before the hairline it measures approximately 5 cm (Slim [place]) Course Vital Signs 05/12/21 05/12/21 12:30 14:56 Temperature 97.6 F 97.6 F Pulse Rate 68 68 Respiratory 16 14 Rate Blood Pressure 158/94 164/64 O2 Sat by Pulse 94 L 97 Oximetry Procedures - Laceration Laceration #1 Indication: laceration Site: other (forehead) Size (cm): 5 Description: linear Depth: simple, single layer Sedation/Analgesia: none Anesthetic Used: lidocaine 1% Anesthesia Technique: local infiltration Amount (mls): 7 Pre-repair: wound explored, irrigated extensively, deep structures intact, extensive debridement Type of Sutures: nylon Size of Sutures: 5-0 Number of Sutures: 7 Technique: simple, interrupted Patient Tolerated Procedure: no complications <Roxy Roblero - Last Filed: 05/12/21 18:07> - Laceration Laceration #1 Additional Comments: Tissue adhesive use for 2 lacerations on the nose, 1 cm and 2 cm, no complications. (Roxy Roblero) Medical Decision Making <Slim [place] - Last Filed: 05/13/21 12:53> - Medical Decision Making Patient's CT of the brain and C-spine showed no acute abnormality. CT of the facial bones show a fracture of the lamina which may extend into the frontal orbit there is no displacement. Patient was somewhat unstable but he absolutely refuses to stay and he is alert and oriented 3. Patient received tetanus and Ancef to the emergency department. ([place],Slim) - Lab Data Lab Results 05/12/21 Range/Units 14:53 POC Glucose (mg/dL) 187 H (75-99) mg/dL POC Glu Armhole Baster Hand ID Gladis Guzman Disposition <Roxy Roblero - Last Filed: 05/12/21 18:07> Is patient prescribed a controlled substance at d/c from ED?: No Time of Disposition: 17:35 <Slim [place] - Last Filed: 05/13/21 12:53> Clinical Impression: Lamina papyracea fracture, Fall, Face lacerations Disposition: HOME SELF-CARE Instructions (If sedation given, give patient instructions): Laceration (ED), Facial Fracture (ED), Fall Prevention (ED) Additional Instructions: Patient should have sutures removed in 5 days. Patient should take Keflex as prescribed. Prescriptions: Cephalexin [Keflex] 500 mg PO Q6HR #20 cap Referrals: Melvina Chew MD [Primary Care Provider] - 1-2 days
--- NOTE | 2021-05-12 14:06 | CT ---
EXAMINATION TYPE: CT facial bones wo con DATE OF EXAM: 05/12/2021 COMPARISON: None HISTORY: Fall today. Frontal injury, right eye brusing and upper lip swelling. CT DLP: 308.9 mGycm Automated exposure control for dose reduction was used. TECHNIQUE: CT scan of the sinuses is performed without contrast, axial images are obtained, coronal r eformatted images are also reviewed. FINDINGS: There is dense carotid artery calcification. Hypertrophic and degenerative changes of the s pine are noted. Changes of chronic sinusitis are noted. Nasal septal deviation noted. There is air wi thin the superior margin of the right orbit. Suspect a linear hairline fracture through the lamina pa pyracea of the medial orbital wall with the possible extension into the frontal sinus and minimally d isplaced. Preseptal soft tissue edema on the right noted. Globes are intact bilaterally and the optic nerves an d intraocular muscles are symmetric in size. Degenerative changes seen in the limited intracranial im ages provided. IMPRESSION: 1. There is intraocular emphysema along the upper margin of the right orbit suspicious for hairline f racture through the lamina preparation of the superior medial right orbital wall. Possible extension into the frontal sinus. Minimal displacement noted. 2. Changes of chronic sinusitis. 3. Dense bilateral carotid artery calcification.
[2021-05-12] MEDS ORDERED: IBUPROFEN 600 MG TAB PO STA (14:43)
[2021-05-12 14:57] LABS: Glucose,Whole Blood 187 mg/dL (75-99)
[2021-05-12 14:58] VITALS: BP 164/64; RESP 14
[2021-05-12] MEDS ORDERED: ceFAZolin 1,000 MG VIAL (IM USE) IM STA (16:24)
[2021-05-12] MEDS ORDERED: TOPICAL SKIN ADHESIVE 1 EACH AMP TOPICAL ONE (16:24)
[2021-05-12] MEDS ORDERED: LIDOCAINE 1% INJ 10MG/ML (20 ML MDV) SQ ONE (16:25)
== END 2021-05-12 20:00 | disposition home or self-care (01) ==
LOC: EC 12:10
DX: S09.90XA Unspecified injury of head, initial encounter (principal); S01.81XA Laceration without foreign body of other part of head, initial encounter; E11.9 Type 2 diabetes mellitus without complications; I10 Essential (primary) hypertension; Z87.891 Personal history of nicotine dependence; W19.XXXA Unspecified fall, initial encounter
CPT/HCPCS: 36415; 72125; 70486; 70450; 90715; 12013; 99284; 90471; 96372; J0690; J2001

== ENCOUNTER 2021-10-16 13:51 | Emergency (ER) | payer MEDICARE ==
[2021-10-16] MEDS ORDERED: SODIUM CHLORIDE 0.9% 1,000 ML IV ONE (14:01)
--- NOTE | 2021-10-16 14:03 | ED ---
General Adult HPI - General Stated complaint: AMS Time Seen by Provider: 10/16/21 13:55 Source: patient, RN notes reviewed, old records reviewed - History of Present Illness Initial comments: This is an 81-year-old male who presents emergency department via EMS after he had fallen. Patient states he tripped over a curb according to EMS his walker was quite a ways away from when they found him. Patient has no complaints other than his been short of breath for about 6 weeks. Patient states it seems to be worse when he lays down. Patient denies any chest pain or palpitations. Patient denies any recent fever chills or cough. Patient denies abdominal pain patient denies nausea vomiting. Patient denies hitting his head or neck. Patient denies any extremity injuries. Patient denies any increased swelling to his legs and normal. - Related Data Home Medications Medication Instructions Recorded Confirmed Simvastatin [Zocor] 20 mg PO DAILY 07/16/17 10/16/21 lisinopriL [Zestril] 20 mg PO DAILY 07/16/17 10/16/21 metFORMIN HCL [Glucophage] 1,500 mg PO DAILY 07/16/17 10/16/21 Latanoprost/Pf [Latanoprost 0.005% 1 drop BOTH EYES HS 05/01/21 10/16/21 Eye Drop] Omeprazole [PriLOSEC] 20 mg PO DAILY 05/01/21 10/16/21 metFORMIN HCL [Glucophage] 1,000 mg PO HS 05/01/21 10/16/21 Albuterol Inhaler [Ventolin Hfa 1 - 2 puff INHALATION RT-Q4H PRN 10/16/21 10/16/21 Inhaler] Previous Rx's Medication Instructions Recorded Clopidogrel [Plavix] 75 mg PO DAILY #90 tab 04/20/19 Allergies Allergy/AdvReac Type Severity Reaction Status Date / Time No Known Allergies Allergy Verified 05/01/21 10:58 Review of Systems ROS Statement: Those systems with pertinent positive or pertinent negative responses have been documented in the HPI. ROS Other: All systems not noted in ROS Statement are negative. Past Medical History Past Medical History: Diabetes Mellitus, Eye Disorder, Hyperlipidemia, Hype rtension, Prostate Disorder, Vascular Disorder Additional Past Medical History / Comment(s): Glaucoma. Dysphagia. BPH. Dryness legs. History of Any Multi-Drug Resistant Organisms: None Reported Past Surgical History: Adenoidectomy, Tonsillectomy Additional Past Surgical History / Comment(s): COLONOSCOPY. BILAT CATARACTS. PTBA Lt leg; PTBA w/ stent Rt leg. Past Anesthesia/Blood Transfusion Reactions: No Reported Reaction Past Psychological History: No Psychological Hx Reported Smoking Status: Former smoker Past Alcohol Use History: None Reported Past Drug Use History: None Reported - Past Family History Mother Family Medical History: Cancer Father Family Medical History: CVA/TIA General Exam - General Exam Comments Initial Comments: GENERAL: Patient is well-developed and well-nourished. Patient is nontoxic and well- hydrated and is in no acute distress. ENT: Neck is soft and supple. No significant lymphadenopathy is noted. Oropharynx is clear. Moist mucous membranes. Neck has full range of motion without eliciting any pain. EYES: The sclera were anicteric and conjunctiva were pink and moist. Extraocular movements were intact and pupils were equal round and reactive to light. Eyelids were unremarkable. PULMONARY: Unlabored respirations. Good breath sounds bilaterally. No audible rales rhonchi or wheezing was noted. CARDIOVASCULAR: There is a regular rate and rhythm without any murmurs gallops or rubs. ABDOMEN: Soft and nontender with normal bowel sounds. SKIN: Skin is clear with no lesions or rashes and otherwise unremarkable. NEUROLOGIC: Patient is alert and oriented x3. Cranial nerves II through XII are grossly intact. Motor and sensory are also intact. Normal speech, volume and content. Symmetrical smile. Cerebellar exam grossly intact. MUSCULOSKELETAL: Very superficial abrasion to the left knee anterior to the patella. Patient has full range of motion of his knees and hips. Patient's full range of motion of upper extremities. LYMPHATICS: No significant lymphadenopathy is noted PSYCHIATRIC: Normal psychiatric evaluation. Course Vital Signs 10/16/21 10/16/21 10/16/21 13:52 13:55 18:29 Temperature 97.8 F Pulse Rate 94 98 94 Respiratory 22 22 18 Rate Blood Pressure 144/79 172/64 153/81 O2 Sat by Pulse 92 L 94 L 100 Oximetry Medical Decision Making - Medical Decision Making EKG shows sinus rhythm at 92 bpm CA interval 212 QRS is under QT interval 345 QTC is 395. Patient's EKG shows no ST segment elevation or depression. Patient's chest x-ray shows no acute abnormality. CT of the chest shows no pulmonary embolism however it does show a nodule in the right upper lobe density mass in the right lower lobe. Patient states all patient follow-up. Patient ambulated throughout the emergency department without problem. Patient's daughter came and stated he was at his baseline mentally he was alert and oriented 3. - Lab Data Result diagrams: 10/16/21 14:16 10/16/21 14:16 Lab Results 10/16/21 10/16/21 10/16/21 Range/Units 14:16 14:16 14:16 WBC 8.4 (3.8-10.6) k/uL RBC 4.14 L (4.30-5.90) m/uL Hgb 12.1 L (13.0-17.5) gm/dL Hct 36.3 L (39.0-53.0) % MCV 87.7 (80.0-100.0) fL MCH 29.3 (25.0-35.0) pg MCHC 33.4 (31.0-37.0) g/dL RDW 14.5 (11.5-15.5) % Plt Count 223 (150-450) k/uL MPV 7.1 Neutrophils % (Manual) 80 % Lymphocytes % (Manual) 9 % Monocytes % (Manual) 11 % Neutrophils # (Manual) 6.72 (1.3-7.7) k/uL Lymphocytes # (Manual) 0.76 L (1.0-4.8) k/uL Monocytes # (Manual) 0.92 (0-1.0) k/uL Nucleated RBCs 0 (0-0) /100 WBC Manual Slide Review Performed PT 10.5 (9.0-12.0) sec INR 1.0 (<1.2) APTT 20.6 L (22.0-30.0) sec D-Dimer 0.84 H (<0.60) mg/L FEU Sodium 133 L (137-145) mmol/L Potassium 4.1 (3.5-5.1) mmol/L Chloride 98 (98-107) mmol/L Carbon Dioxide 22 (22-30) mmol/L Anion Gap 13 mmol/L BUN 10 (9-20) mg/dL Creatinine 0.74 (0.66-1.25) mg/dL Est GFR (CKD-EPI)AfAm >90 (>60 ml/min/1.73 sqM) Est GFR (CKD-EPI)NonAf 87 (>60 ml/min/1.73 sqM) Glucose 429 H (74-99) mg/dL POC Glucose (mg/dL) (70-110) mg/dL POC Glu Body Trimmer Upholsterer ID Calcium 9.3 (8.4-10.2) mg/dL Total Bilirubin 0.8 (0.2-1.3) mg/dL AST 19 (17-59) U/L ALT 16 (4-49) U/L Alkaline Phosphatase 98 (38-126) U/L Troponin I (0.000-0.034) ng/mL Total Protein 6.7 (6.3-8.2) g/dL Albumin 4.1 (3.5-5.0) g/dL Urine Color Urine Appearance (Clear) Urine pH (5.0-8.0) Ur Specific [place] (1.001-1.035) Urine Protein (Negative) Urine Glucose (UA) (Negative) Urine Ketones (Negative) Urine Blood (Negative) Urine Nitrite (Negative) Urine Bilirubin (Negative) Urine Urobilinogen (<2.0) mg/dL Ur Leukocyte Esterase (Negative) Urine Opiates Screen (NotDetected) Ur Oxycodone Screen (NotDetected) Urine Methadone Screen (NotDetected) Ur Propoxyphene Screen (NotDetected) Ur Barbiturates Screen (NotDetected) U Tricyclic Antidepress (NotDetected) Ur Phencyclidine Scrn (NotDetected) Ur Amphetamines Screen (NotDetected) U Methamphetamines Scrn (NotDetected) U Benzodiazepines Scrn (NotDetected) Urine Cocaine Screen (NotDetected) U Marijuana (THC) Screen (NotDetected) Acetone, Qual Negative (Negative) 10/16/21 10/16/21 10/16/21 Range/Units 14:16 15:09 15:09 WBC (3.8-10.6) k/uL RBC (4.30-5.90) m/uL Hgb (13.0-17.5) gm/dL Hct (39.0-53.0) % MCV (80.0-100.0) fL MCH (25.0-35.0) pg MCHC (31.0-37.0) g/dL RDW (11.5-15.5) % Plt Count (150-450) k/uL MPV Neutrophils % (Manual) % Lymphocytes % (Manual) % Monocytes % (Manual) % Neutrophils # (Manual) (1.3-7.7) k/uL Lymphocytes # (Manual) (1.0-4.8) k/uL Monocytes # (Manual) (0-1.0) k/uL Nucleated RBCs (0-0) /100 WBC Manual Slide Review PT (9.0-12.0) sec INR (<1.2) APTT (22.0-30.0) sec D-Dimer (<0.60) mg/L FEU Sodium (137-145) mmol/L Potassium (3.5-5.1) mmol/L Chloride (98-107) mmol/L Carbon Dioxide (22-30) mmol/L Anion Gap mmol/L BUN (9-20) mg/dL Creatinine (0.66-1.25) mg/dL Est GFR (CKD-EPI)AfAm (>60 ml/min/1.73 sqM) Est GFR (CKD-EPI)NonAf (>60 ml/min/1.73 sqM) Glucose (74-99) mg/dL POC Glucose (mg/dL) (70-110) mg/dL POC Glu Body Trimmer Upholsterer ID Calcium (8.4-10.2) mg/dL Total Bilirubin (0.2-1.3) mg/dL AST (17-59) U/L ALT (4-49) U/L Alkaline Phosphatase (38-126) U/L Troponin I <0.012 (0.000-0.034) ng/mL Total Protein (6.3-8.2) g/dL Albumin (3.5-5.0) g/dL Urine Color Light Yellow Urine Appearance Clear (Clear) Urine pH 5.5 (5.0-8.0) Ur Specific [place] 1.028 (1.001-1.035) Urine Protein Negative (Negative) Urine Glucose (UA) 4+ H (Negative) Urine Ketones 1+ H (Negative) Urine Blood Negative (Negative) Urine Nitrite Negative (Negative) Urine Bilirubin Negative (Negative) Urine Urobilinogen <2.0 (<2.0) mg/dL Ur Leukocyte Esterase Negative (Negative) Urine Opiates Screen Not Detected (NotDetected) Ur Oxycodone Screen Not Detected (NotDetected) Urine Methadone Screen Not Detected (NotDetected) Ur Propoxyphene Screen Not Detected (NotDetected) Ur Barbiturates Screen Not Detected (NotDetected) U Tricyclic Antidepress Not Detected (NotDetected) Ur Phencyclidine Scrn Not Detected (NotDetected) Ur Amphetamines Screen Not Detected (NotDetected) U Methamphetamines Scrn Not Detected (NotDetected) U Benzodiazepines Scrn Not Detected (NotDetected) Urine Cocaine Screen Not Detected (NotDetected) U Marijuana (THC) Screen Not Detected (NotDetected) Acetone, Qual (Negative) 10/16/21 Range/Units 19:49 WBC (3.8-10.6) k/uL RBC (4.30-5.90) m/uL Hgb (13.0-17.5) gm/dL Hct (39.0-53.0) % MCV (80.0-100.0) fL MCH (25.0-35.0) pg MCHC (31.0-37.0) g/dL RDW (11.5-15.5) % Plt Count (150-450) k/uL MPV Neutrophils % (Manual) % Lymphocytes % (Manual) % Monocytes % (Manual) % Neutrophils # (Manual) (1.3-7.7) k/uL Lymphocytes # (Manual) (1.0-4.8) k/uL Monocytes # (Manual) (0-1.0) k/uL Nucleated RBCs (0-0) /100 WBC Manual Slide Review PT (9.0-12.0) sec INR (<1.2) APTT (22.0-30.0) sec D-Dimer (<0.60) mg/L FEU Sodium (137-145) mmol/L Potassium (3.5-5.1) mmol/L Chloride (98-107) mmol/L Carbon Dioxide (22-30) mmol/L Anion Gap mmol/L BUN (9-20) mg/dL Creatinine (0.66-1.25) mg/dL Est GFR (CKD-EPI)AfAm (>60 ml/min/1.73 sqM) Est GFR (CKD-EPI)NonAf (>60 ml/min/1.73 sqM) Glucose (74-99) mg/dL POC Glucose (mg/dL) 304 H (70-110) mg/dL POC Glu Body Trimmer Upholsterer ID Anny Odell Calcium (8.4-10.2) mg/dL Total Bilirubin (0.2-1.3) mg/dL AST (17-59) U/L ALT (4-49) U/L Alkaline Phosphatase (38-126) U/L Troponin I (0.000-0.034) ng/mL Total Protein (6.3-8.2) g/dL Albumin (3.5-5.0) g/dL Urine Color Urine Appearance (Clear) Urine pH (5.0-8.0) Ur Specific [place] (1.001-1.035) Urine Protein (Negative) Urine Glucose (UA) (Negative) Urine Ketones (Negative) Urine Blood (Negative) Urine Nitrite (Negative) Urine Bilirubin (Negative) Urine Urobilinogen (<2.0) mg/dL Ur Leukocyte Esterase (Negative) Urine Opiates Screen (NotDetected) Ur Oxycodone Screen (NotDetected) Urine Methadone Screen (NotDetected) Ur Propoxyphene Screen (NotDetected) Ur Barbiturates Screen (NotDetected) U Tricyclic Antidepress (NotDetected) Ur Phencyclidine Scrn (NotDetected) Ur Amphetamines Screen (NotDetected) U Methamphetamines Scrn (NotDetected) U Benzodiazepines Scrn (NotDetected) Urine Cocaine Screen (NotDetected) U Marijuana (THC) Screen (NotDetected) Acetone, Qual (Negative) Disposition Clinical Impression: Fall, Abrasion of knee, Lung nodule Disposition: HOME SELF-CARE Condition: Good Instructions (If sedation given, give patient instructions): Abrasion (ED), Fall Prevention (ED), Pulmonary Nodules (ED) Is patient prescribed a controlled substance at d/c from ED?: No Referrals: Melvina Chew MD [Primary Care Provider] - 1-2 days Time of Disposition: 20:17
[2021-10-16 14:04] VITALS: TEMP 97.8
[2021-10-16 14:43] LABS: ALT 16 U/L (4-49); AST 19 U/L (17-59); African American GFR (CKD) >90 (>60 ml/min/1.73 sqM); Albumin 4.1 g/dL (3.5-5.0); Alkaline Phosphatase 98 U/L (38-126); Anion Gap 13 mmol/L; Blood Urea Nitrogen 10 mg/dL (9-20); Calcium 9.3 mg/dL (8.4-10.2); Carbon Dioxide 22 mmol/L (22-30); Chloride 98 mmol/L (98-107); Glucose 429 mg/dL (74-99); Non-African American GFR(CKD) 87 (>60 ml/min/1.73 sqM); Potassium 4.1 mmol/L (3.5-5.1); Sodium 133 mmol/L (137-145); Total Bilirubin 0.8 mg/dL (0.2-1.3); Total Protein 6.7 g/dL (6.3-8.2)
[2021-10-16 14:46] LABS: HCT 36.3 % (39.0-53.0); HGB 12.1 gm/dL (13.0-17.5); MCH 29.3 pg (25.0-35.0); MCHC 33.4 g/dL (31.0-37.0); MCV 87.7 fL (80.0-100.0); Mean Platelet Volume 7.1; Platelet Count 223 k/uL (150-450); RBC 4.14 m/uL (4.30-5.90); RDW 14.5 % (11.5-15.5); WBC 8.4 k/uL (3.8-10.6)
[2021-10-16 14:56] LABS: Prothrombin Time 10.5 sec (9.0-12.0)
--- NOTE | 2021-10-16 15:04 | CT ---
EXAMINATION TYPE: CT brain wo con CT DLP: 1066.4 mGycm, Automated exposure control for dose reduction was used. DATE OF EXAM: 10/16/2021 2:58 PM COMPARISON: Brain 05/12/2021. CLINICAL INDICATION:Male, 81 years old with history of Altered mental status, fall TECHNIQUE: Brain: Axial CT images of the brain were obtained with coronal and sagittal reformats created and rev iewed. Contrast used: None. Oral contrast used: None. FINDINGS: Brain: Extra-axial spaces: No abnormal extra-axial fluid collections. Ventricular system: Dilatation in proportion to cerebral atrophy. Cerebral parenchyma: Cerebral atrophy. No acute intraparenchymal hemorrhage or mass effect. The choudhury -white junction is well differentiated. Scattered hypoattenuating areas are seen within the white mat ter. Cerebellum: Unremarkable. Mass effect: No evidence of midline shift. Intracranial vasculature: Atherosclerotic calcifications of the intracranial vessels. Soft tissues: Normal. Calvarium/osseous structures: No depressed skull fracture. Paranasal sinuses and mastoid air cells: Mild scattered paranasal sinus disease. Visualized orbits: Bilateral aphakia IMPRESSION: 1. No acute intracranial process. 2. Nonspecific white matter changes, likely secondary to chronic small vessel ischemic disease.
[2021-10-16 15:13] LABS: Partial Thromboplastin Time 20.6 sec (22.0-30.0)
[2021-10-16 15:17] LABS: Appearance,Urine Clear (Clear); Bilirubin,Urine Negative (Negative); Blood,Urine Negative (Negative); Color,Urine Light Yellow; Glucose,Urine (UA) 4+ (Negative); Ketones,Urine 1+ (Negative); Leukocyte Esterase,Urine Negative (Negative); Nitrite,Urine Negative (Negative); PH, Urine 5.5 (5.0-8.0); Protein,Urine Negative (Negative); Specific Gravity,Urine 1.028 (1.001-1.035); Urobilinogen,Urine <2.0 mg/dL (<2.0)
[2021-10-16 15:26] LABS: Lymphocytes # (M) 0.76 k/uL (1.0-4.8); Monocytes # (M) 0.92 k/uL (0-1.0); Neutrophils # (M) 6.72 k/uL (1.3-7.7); Neutrophils % (M) 80 %; Nucleated Red Blood Cells 0 /100 WBC (0-0); Total Cells Counted 100
--- NOTE | 2021-10-16 15:34 | XR ---
EXAMINATION TYPE: XR chest 2V DATE OF EXAM: 10/16/2021 COMPARISON: NONE TECHNIQUE: PA and lateral views submitted. HISTORY: Altered mental status FINDINGS: The lungs are clear and there is no pneumothorax, pleural effusion, or focal pneumonia. Hypertrophi c and degenerative changes spine. Shoulders. There is a large rounded density in lower posterior lung field on the lateral view. Not re plicated on the frontal view. Atherosclerotic change aorta. No overt failure or pleural IMPRESSION: 1. No acute process. However, there is a rounded 5 cm density along the posterior lower lung field on the lateral view. This could be related to superimposed structures. Recommend CT of chest exclude ma ss.
[2021-10-16 15:53] LABS: Amphetamine Screen,Urine Not Detected (NotDetected); Barbiturate Screen,Urine Not Detected (NotDetected); Benzodiazepines Screen,Urine Not Detected (NotDetected); Cocaine Screen,Urine Not Detected (NotDetected); Methadone Screen, Urine Not Detected (NotDetected); Opiate Screen,Urine Not Detected (NotDetected); Oxycodone Screen, Urine Not Detected (NotDetected); Phencyclidine Screen,Urine Not Detected (NotDetected); Tricyclic Antidepressant,Urine Not Detected (NotDetected); Urn Cannabinoid Scrn Not Detected (NotDetected)
--- NOTE | 2021-10-16 16:42 | CT ---
EXAMINATION TYPE: CT chest angio for PE CT DLP: 410.7 mGycm, Automated exposure control for dose reduction was used. DATE OF EXAM: 10/16/2021 4:30 PM COMPARISON: Chest radiograph 10/16/2021 CLINICAL INDICATION:Male, 81 years old with history of D-dimer is elevated; Elevated d-dimer TECHNIQUE/CONTRAST: CTA scan of the thorax is performed with IV Contrast, patient injected with 100 mL of Isovue 370, pul monary embolism protocol. MIP images are created and reviewed. FINDINGS: Pulmonary Artery: There is no evidence for a filling defect within the pulmonary vasculature to sugge st acute pulmonary embolism. The pulmonary artery is of normal size. Lungs/Pleura:Right upper lobe pulmonary nodule measuring 2.5 x 2.0 cm. Opacity within the right lower lobe measures 4.3 x 3.9 x 3.8 cm and demonstrates internal calcifications. No evidence of focal cons olidation, pleural effusion or pneumothorax. Airway: Large airways are patent. Heart: Heart is within normal limits for size.. Vasculature: No evidence of aortic aneurysm. Mediastinum: No gross evidence of adenopathy. Musculoskeletal: No acute osseous abnormalities multilevel disc degeneration changes are seen through out the spine with disc space narrowing, vacuum disc phenomenon, osteophytes and subchondral cystic c hanges. Soft Tissues: Unremarkable. Lower neck: No significant findings. Upper Abdomen: No significant findings. IMPRESSION: 1. No evidence of pulmonary embolism. 2. Right upper lobe pulmonary nodule measuring 2.5 x 2.0 cm along with a dominant right lower lobe ma ss measuring 4.3 x 3.9 x 3.8 cm with internal calcification. The larger lesion may represent hematoma or other etiologies such as calcified carcinoid tumor not entirely excluded. Further workup of these lesions is recommended. Comparisons with priors at outside institutions may be of benefit for stabil ity.
[2021-10-16 18:30] VITALS: BP 153/81; PULSE 94; RESP 18
[2021-10-16 19:51] LABS: Glucose,Whole Blood 304 mg/dL (70-110)
== END 2021-10-16 21:08 | disposition home or self-care (01) ==
LOC: EC 13:51
DX: S80.212A Abrasion, left knee, initial encounter (principal); R91.1 Solitary pulmonary nodule; E11.9 Type 2 diabetes mellitus without complications; R41.82 Altered mental status, unspecified; I10 Essential (primary) hypertension; E78.5 Hyperlipidemia, unspecified; Z87.891 Personal history of nicotine dependence; Z79.899 Other long term (current) drug therapy; W18.09XA Striking against other object with subsequent fall, initial encounter
CPT/HCPCS: 36415; 93005; 85379; 80053; 82009; 84484; 85025; 85610; 85730; 81003; 80306; 71046; 70450; 71275; 99285; 96360; Q9967

== ENCOUNTER 2021-10-18 12:41 | Inpatient (IN) | payer MEDICARE ==
[2021-10-18] MEDS ORDERED: SODIUM CHLORIDE 0.9% 1,000 ML IV ONE ×2 (12:53→14:53)
[2021-10-18] MEDS ORDERED: SODIUM CHLORIDE 0.9% 500 ML 500 ML IV ONE (12:53)
--- NOTE | 2021-10-18 12:59 | ED ---
General Adult HPI - General Chief complaint: Weakness Stated complaint: Falls, Diabetic Time Seen by Provider: 10/18/21 12:41 Source: patient, EMS, RN notes reviewed, old records reviewed Mode of arrival: EMS Limitations: physical limitation - History of Present Illness Initial comments: This is a 81-year-old male who is a diabetic and according to the paramedics is living in [facility]. Patient comes in because he's been weak and falling patient denies any injury. Patient has multiple abrasions on his extremities from falling. Patient states he is a diabetic EMS stated that he had a sugar read high for them. Patient's main complaint is his feeling weak and keeps falling over. Patient denies any chest pain difficulty breathing shortness of breath. Patient denies any fever chills or cough. Patient denies any abdominal pain patient denies any nausea vomiting diarrhea. Patient denies any headache patient denies numbness weakness. Patient denies any head trauma or neck trauma. - Related Data Home Medications Medication Instructions Recorded Confirmed Simvastatin [Zocor] 20 mg PO DAILY 07/16/17 10/16/21 lisinopriL [Zestril] 20 mg PO DAILY 07/16/17 10/16/21 metFORMIN HCL [Glucophage] 1,500 mg PO DAILY 07/16/17 10/16/21 Latanoprost/Pf [Latanoprost 0.005% 1 drop BOTH EYES HS 05/01/21 10/16/21 Eye Drop] Omeprazole [PriLOSEC] 20 mg PO DAILY 05/01/21 10/16/21 metFORMIN HCL [Glucophage] 1,000 mg PO HS 05/01/21 10/16/21 Albuterol Inhaler [Ventolin Hfa 1 - 2 puff INHALATION RT-Q4H PRN 10/16/21 10/16/21 Inhaler] Previous Rx's Medication Instructions Recorded Clopidogrel [Plavix] 75 mg PO DAILY #90 tab 04/20/19 Allergies Allergy/AdvReac Type Severity Reaction Status Date / Time No Known Allergies Allergy Verified 10/18/21 12:53 Review of Systems ROS Statement: Those systems with pertinent positive or pertinent negative responses have been documented in the HPI. ROS Other: All systems not noted in ROS Statement are negative. Past Medical History Past Medical History: Diabetes Mellitus, Eye Disorder, Hyperlipidemia, Hypertension, Prostate Disorder, Vascular Disorder Additional Past Medical History / Comment(s): Glaucoma. Dysphagia. BPH. Dryness legs. History of Any Multi-Drug Resistant Organisms: None Reported Past Surgical History: Adenoidectomy, Tonsillectomy Additional Past Surgical History / Comment(s): COLONOSCOPY. BILAT CATARACTS. PTBA Lt leg; PTBA w/ stent Rt leg. Past Anesthesia/Blood Transfusion Reactions: No Reported Reaction Past Psychological History: No Psychological Hx Reported Smoking Status: Former smoker Past Alcohol Use History: None Reported Past Drug Use History: None Reported - Past Family History Mother Family Medical History: Cancer Father Family Medical History: CVA/TIA General Exam - General Exam Comments Initial Comments: GENERAL: Patient is well-developed and well-nourished. Patient is nontoxic and well- hydrated and is in mild distress. ENT: Neck is soft and supple. No significant lymphadenopathy is noted. Oropharynx is clear. Dry mucous membranes. Neck has full range of motion without eliciting any pain. EYES: The sclera were anicteric and conjunctiva were pink and moist. Extraocular movements were intact and pupils were equal round and reactive to light. Eyelids were unremarkable. PULMONARY: Unlabored respirations. Good breath sounds bilaterally. No audible rales rhonchi or wheezing was noted. CARDIOVASCULAR: There is a regular rate and rhythm without any murmurs gallops or rubs. ABDOMEN: Soft and nontender with normal bowel sounds. SKIN: Patient has multiple abrasions on his arms and legs all and very states that feeling not appear to be acute NEUROLOGIC: Patient is alert and oriented x3. Cranial nerves II through XII are grossly intact. Motor and sensory are also intact. Normal speech, volume and content. Symmetrical smile. MUSCULOSKELETAL: Normal extremities with adequate strength and full range of motion. LYMPHATICS: No significant lymphadenopathy is noted PSYCHIATRIC: Normal psychiatric evaluation. Limitations: physical limitation Course Vital Signs 10/18/21 10/18/21 12:45 13:51 Temperature 98.3 F Pulse Rate 94 86 Respiratory 18 16 Rate Blood Pressure 147/70 147/70 O2 Sat by Pulse 95 97 Oximetry Medical Decision Making - Medical Decision Making EKG shows sinus rhythm at 80 bpm CO interval is 270 QRS is 13 QT interval 355 QTC is 400. Patient's EKG shows no ST segment elevation or depression. I spoke with Dr. Rosenberg he agreed to admit the patient admitted the patient wrote a admitting orders - Lab Data Result diagrams: 10/18/21 12:56 10/18/21 12:56 Lab Results 10/18/21 10/18/21 10/18/21 Range/Units 12:51 12:56 12:56 WBC 8.4 (3.8-10.6) k/uL RBC 4.37 (4.30-5.90) m/uL Hgb 12.1 L (13.0-17.5) gm/dL Hct 38.7 L (39.0-53.0) % MCV 88.7 (80.0-100.0) fL MCH 27.8 (25.0-35.0) pg MCHC 31.3 (31.0-37.0) g/dL RDW 14.5 (11.5-15.5) % Plt Count 223 (150-450) k/uL MPV 7.2 Neutrophils % 83 % Lymphocytes % 7 % Monocytes % 7 % Eosinophils % 1 % Basophils % 0 % Neutrophils # 7.0 (1.3-7.7) k/uL Lymphocytes # 0.6 L (1.0-4.8) k/uL Monocytes # 0.6 (0-1.0) k/uL Eosinophils # 0.1 (0-0.7) k/uL Basophils # 0.0 (0-0.2) k/uL Hypochromasia Slight PT 10.8 (9.0-12.0) sec INR 1.0 (<1.2) APTT 19.4 L (22.0-30.0) sec Sodium (137-145) mmol/L Potassium (3.5-5.1) mmol/L Chloride (98-107) mmol/L Carbon Dioxide (22-30) mmol/L Anion Gap mmol/L BUN (9-20) mg/dL Creatinine (0.66-1.25) mg/dL Est GFR (CKD-EPI)AfAm (>60 ml/min/1.73 sqM) Est GFR (CKD-EPI)NonAf (>60 ml/min/1.73 sqM) Glucose (74-99) mg/dL POC Glucose (mg/dL) 506 H (70-110) mg/dL POC Glu [facility] ID Booth, [place] Plasma Lactic Acid Edgar (0.7-2.0) mmol/L Calcium (8.4-10.2) mg/dL Magnesium (1.6-2.3) mg/dL Total Bilirubin (0.2-1.3) mg/dL AST (17-59) U/L ALT (4-49) U/L Alkaline Phosphatase (38-126) U/L Troponin I (0.000-0.034) ng/mL Total Protein (6.3-8.2) g/dL Albumin (3.5-5.0) g/dL Acetone, Qual (Negative) 10/18/21 10/18/21 10/18/21 Range/Units 12:56 12:56 12:56 WBC (3.8-10.6) k/uL RBC (4.30-5.90) m/uL Hgb (13.0-17.5) gm/dL Hct (39.0-53.0) % MCV (80.0-100.0) fL MCH (25.0-35.0) pg MCHC (31.0-37.0) g/dL RDW (11.5-15.5) % Plt Count (150-450) k/uL MPV Neutrophils % % Lymphocytes % % Monocytes % % Eosinophils % % Basophils % % Neutrophils # (1.3-7.7) k/uL Lymphocytes # (1.0-4.8) k/uL Monocytes # (0-1.0) k/uL Eosinophils # (0-0.7) k/uL Basophils # (0-0.2) k/uL Hypochromasia PT (9.0-12.0) sec INR (<1.2) APTT (22.0-30.0) sec Sodium 134 L (137-145) mmol/L Potassium 4.1 (3.5-5.1) mmol/L Chloride 101 (98-107) mmol/L Carbon Dioxide 23 (22-30) mmol/L Anion Gap 10 mmol/L BUN 13 (9-20) mg/dL Creatinine 0.69 (0.66-1.25) mg/dL Est GFR (CKD-EPI)AfAm >90 (>60 ml/min/1.73 sqM) Est GFR (CKD-EPI)NonAf 89 (>60 ml/min/1.73 sqM) Glucose 516 H* (74-99) mg/dL POC Glucose (mg/dL) (70-110) mg/dL POC Glu [facility] ID Plasma Lactic Acid Edgar 2.6 H* (0.7-2.0) mmol/L Calcium 8.9 (8.4-10.2) mg/dL Magnesium 1.5 L (1.6-2.3) mg/dL Total Bilirubin 1.6 H (0.2-1.3) mg/dL AST 28 (17-59) U/L ALT 18 (4-49) U/L Alkaline Phosphatase 88 (38-126) U/L Troponin I <0.012 (0.000-0.034) ng/mL Total Protein 6.3 (6.3-8.2) g/dL Albumin 3.8 (3.5-5.0) g/dL Acetone, Qual Negative (Negative) Disposition Clinical Impression: Hyperglycemia, Multiple falls, Unable to care for self Disposition: ADMITTED IP TO THIS HOSP Referrals: Melvina Chew MD [Primary Care Provider] - 1-2 days Time of Disposition: 14:50
[2021-10-18 13:11] LABS: Glucose,Whole Blood 506 mg/dL (70-110)
[2021-10-18 13:18] LABS: Basophils % (A) 0 %; Eosinophils # (A) 0.1 k/uL (0-0.7); Eosinophils % (A) 1 %; HCT 38.7 % (39.0-53.0); HGB 12.1 gm/dL (13.0-17.5); Hypochromasia Slight; Lymphocytes # (A) 0.6 k/uL (1.0-4.8); Lymphocytes % (A) 7 %; MCH 27.8 pg (25.0-35.0); MCHC 31.3 g/dL (31.0-37.0); MCV 88.7 fL (80.0-100.0); Mean Platelet Volume 7.2; Monocytes # (A) 0.6 k/uL (0-1.0); Monocytes % (A) 7 %; Neutrophils % (A) 83 %; Platelet Count 223 k/uL (150-450); RBC 4.37 m/uL (4.30-5.90); RDW 14.5 % (11.5-15.5); WBC 8.4 k/uL (3.8-10.6)
[2021-10-18 13:30] LABS: ALT 18 U/L (4-49); AST 28 U/L (17-59); African American GFR (CKD) >90 (>60 ml/min/1.73 sqM); Albumin 3.8 g/dL (3.5-5.0); Alkaline Phosphatase 88 U/L (38-126); Anion Gap 10 mmol/L; Blood Urea Nitrogen 13 mg/dL (9-20); Calcium 8.9 mg/dL (8.4-10.2); Carbon Dioxide 23 mmol/L (22-30); Chloride 101 mmol/L (98-107); Magnesium 1.5 mg/dL (1.6-2.3); Non-African American GFR(CKD) 89 (>60 ml/min/1.73 sqM); Potassium 4.1 mmol/L (3.5-5.1); Sodium 134 mmol/L (137-145); Total Bilirubin 1.6 mg/dL (0.2-1.3); Total Protein 6.3 g/dL (6.3-8.2)
[2021-10-18 13:35] LABS: Glucose 516 mg/dL (74-99)
[2021-10-18 13:39] LABS: Prothrombin Time 10.8 sec (9.0-12.0)
--- NOTE | 2021-10-18 13:43 | XR ---
EXAMINATION TYPE: XR chest 2V DATE OF EXAM: 10/18/2021 COMPARISON: 10/16/2021 HISTORY: 81 year-old male shortness of breath, difficulty breathing TECHNIQUE: AP and lateral views FINDINGS: Heart upper limits of normal in size. Mild interstitial prominence is unchanged. No consolidation or pleural effusion. Narrowing of the subacromial space on the right may reflect an underlying rotator c uff tear. Focal right apical opacity and posterior basilar opacity remain unchanged compared to the f indings on 10/16/2021 CT. IMPRESSION: Chronic changes. Appropriate further workup for the right apical and posterior right basilar opacitie s recommended on the CT 10/16/2021. No acute process seen.
[2021-10-18 14:08] LABS: Partial Thromboplastin Time 19.4 sec (22.0-30.0)
[2021-10-18] MEDS ORDERED: DEXTROSE 50% SYRINGE 50 ML IVP PRN ×2 (14:55)
[2021-10-18 14:56] LABS: Appearance,Urine Clear (Clear); Bilirubin,Urine Negative (Negative); Blood,Urine Negative (Negative); Color,Urine Light Yellow; Glucose,Urine (UA) 4+ (Negative); Leukocyte Esterase,Urine Negative (Negative); Nitrite,Urine Negative (Negative); PH, Urine 5.5 (5.0-8.0); Protein,Urine Negative (Negative); Urobilinogen,Urine <2.0 mg/dL (<2.0)
[2021-10-18 15:08] LABS: Ketones,Urine 2+ (Negative)
[2021-10-18] MEDS ORDERED: INSULIN ASPART (NovoLOG) 100 UNIT/ML VIAL SQ ONE (15:14)
[2021-10-18 15:21] LABS: Glucose,Whole Blood 414 mg/dL (70-110)
[2021-10-18 16:52] LABS: Glucose,Whole Blood 271 mg/dL (70-110)
[2021-10-18 17:52] LABS: Glucose,Whole Blood 171 mg/dL (70-110)
[2021-10-18] MEDS: INSULIN ASPART (NovoLOG) 100 UNIT/ML VIAL SQ SCH ×2 (18:00→21:33)
[2021-10-18 21:28] LABS: Glucose,Whole Blood 87 mg/dL (70-110)
[2021-10-18 22:27] LABS: Glucose,Whole Blood 115 mg/dL (70-110)
[2021-10-19 00:29] LABS: Glucose,Whole Blood 153 mg/dL (70-110)
[2021-10-19 07:20] LABS: Glucose,Whole Blood 212 mg/dL (70-110)
[2021-10-19] MEDS: INSULIN ASPART (NovoLOG) 100 UNIT/ML VIAL SQ SCH ×4 (09:20→21:06)
--- NOTE | 2021-10-19 11:05 | P.HPIM ---
History of Present Illness H&P Date: 10/19/21 Juan Castelan, is an 81 year old male who presented to [facility] emergency room with a chief complaint of multiple injuries after sustaining a fall at home He was evaluated in the emergency room vital examination on presentation revealed a temperature of 98.3 pulse 94 respiration 18 blood pressure 147/70 pulse ox 95% on room air Laboratory data reveals a white blood count of 8.4 hemoglobin 12.1 platelet count 223 sodium 134 BUN 13 creatinine 0.69 glucose level was 516 Testing in the emergency room revealed chest x-ray done in the emergency room revealed no acute process, however patient was in the emergency room 1 day prior at that time he had a computed tomography scan of the chest that revealed right upper lobe pulmonary nodule and a right lower lobe pulmonary mass. Patient was admitted to medical floor for further evaluation and treatment Past Medical History Past Medical History: Diabetes Mellitus, Eye Disorder, Hyperlipidemia, Hypertension, Prostate Disorder, Vascular Disorder Additional Past Medical History / Comment(s): Glaucoma. Dysphagia. BPH. Dryness legs. History of Any Multi-Drug Resistant Organisms: None Reported Past Surgical History: Adenoidectomy, Tonsillectomy Additional Past Surgical History / Comment(s): COLONOSCOPY. BILAT CATARACTS. PTBA Lt leg; PTBA w/ stent Rt leg. 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 smoked age [age]yr, 2 ppd. Past Drug Use History: None Reported - Past Family History Mother Family Medical History: Cancer Father Family Medical History: CVA/TIA Medications and Allergies Home Medications Medication Instructions Recorded Confirmed Type Simvastatin [Zocor] 20 mg PO DAILY 07/16/17 10/18/21 History lisinopriL [Zestril] 10 mg PO DAILY 07/16/17 10/18/21 History metFORMIN HCL [Glucophage] 1,500 mg PO DAILY 07/16/17 10/18/21 History Clopidogrel [Plavix] 75 mg PO DAILY #90 tab 04/20/19 10/18/21 Rx Latanoprost/Pf [Latanoprost 0.005% 1 drop BOTH EYES HS 05/01/21 10/18/21 History Eye Drop] Omeprazole [PriLOSEC] 20 mg PO DAILY 05/01/21 10/18/21 History metFORMIN HCL [Glucophage] 1,000 mg PO HS 05/01/21 10/18/21 History Albuterol Inhaler [Ventolin Hfa 1 - 2 puff INHALATION RT-Q4H PRN 10/16/21 10/18/21 History Inhaler] Allergies Allergy/AdvReac Type Severity Reaction Status Date / Time No Known Allergies Allergy Verified 10/18/21 15:20 Physical Exam Vitals: Vital Signs Temp Pulse Pulse Resp BP BP Pulse Ox 10/19/21 07:44 97.9 F 78 18 181/83 99 10/19/21 02:10 97.6 F 85 17 144/66 99 10/18/21 21:25 98.2 F 17 164/68 97 10/18/21 16:00 81 16 144/87 95 10/18/21 13:51 86 16 147/70 97 10/18/21 12:45 98.3 F 94 18 147/70 95 Intake and Output 10/18/21 10/19/21 10/19/21 22:59 06:59 14:59 Intake Total 675 Output Total 100 Balance 575 Intake: IV 675 Sodium Chloride 0.9% 1, 675 000 ml @ 75 mls/hr IV . [id number] ONE Rx#:[id number] Output: Urine 100 Other: # Voids 2 Weight 86.183 kg In general patient is alert and oriented x 3 in no distress HEENT head normocephalic and atraumatic Neck is supple no JVD no goiter no lymphadenopathy no carotid bruit Chest examination is clear to auscultation no crackles no wheezing Cardiac exam reveals regular heart sounds S1 and S2 no gallops no murmurs Abdomen is soft nontender no organomegaly with normal bowel sounds Extremity exam reveals no edema no cyanosis or clubbing, patient has multiple scabbing wounds on bilateral pretibial areas, he has a bruise on the left side of his face Neurological examination reveals no gross focal deficits Results CBC & Chem 7: 10/18/21 12:56 10/18/21 12:56 Labs: Abnormal Lab Results - Last 24 Hours (Table) 10/18/21 10/18/21 10/18/21 Range/Units 12:51 12:56 12:56 Hgb 12.1 L (13.0-17.5) gm/dL Hct 38.7 L (39.0-53.0) % Lymphocytes # 0.6 L (1.0-4.8) k/uL APTT 19.4 L (22.0-30.0) sec Sodium (137-145) mmol/L Glucose (74-99) mg/dL POC Glucose (mg/dL) 506 H (70-110) mg/dL Hemoglobin A1c (0.0-6.0) % Plasma Lactic Acid Edgar (0.7-2.0) mmol/L Magnesium (1.6-2.3) mg/dL Total Bilirubin (0.2-1.3) mg/dL Urine Glucose (UA) (Negative) Urine Ketones (Negative) 10/18/21 10/18/21 10/18/21 Range/Units 12:56 12:56 12:56 Hgb (13.0-17.5) gm/dL Hct (39.0-53.0) % Lymphocytes # (1.0-4.8) k/uL APTT (22.0-30.0) sec Sodium 134 L (137-145) mmol/L Glucose 516 H* (74-99) mg/dL POC Glucose (mg/dL) (70-110) mg/dL Hemoglobin A1c (0.0-6.0) % Plasma Lactic Acid Edgar 2.6 H* (0.7-2.0) mmol/L Magnesium 1.5 L (1.6-2.3) mg/dL Total Bilirubin 1.6 H (0.2-1.3) mg/dL Urine Glucose (UA) 4+ H (Negative) Urine Ketones 2+ H (Negative) 10/18/21 10/18/21 10/18/21 Range/Units 12:56 15:20 16:47 Hgb (13.0-17.5) gm/dL Hct (39.0-53.0) % Lymphocytes # (1.0-4.8) k/uL APTT (22.0-30.0) sec Sodium (137-145) mmol/L Glucose (74-99) mg/dL POC Glucose (mg/dL) 414 H 271 H (70-110) mg/dL Hemoglobin A1c 10.4 H (0.0-6.0) % Plasma Lactic Acid Edgar (0.7-2.0) mmol/L Magnesium (1.6-2.3) mg/dL Total Bilirubin (0.2-1.3) mg/dL Urine Glucose (UA) (Negative) Urine Ketones (Negative) 10/18/21 10/18/21 10/19/21 Range/Units 17:50 22:15 00:28 Hgb (13.0-17.5) gm/dL Hct (39.0-53.0) % Lymphocytes # (1.0-4.8) k/uL APTT (22.0-30.0) sec Sodium (137-145) mmol/L Glucose (74-99) mg/dL POC Glucose (mg/dL) 171 H 115 H 153 H (70-110) mg/dL Hemoglobin A1c (0.0-6.0) % Plasma Lactic Acid Edgar (0.7-2.0) mmol/L Magnesium (1.6-2.3) mg/dL Total Bilirubin (0.2-1.3) mg/dL Urine Glucose (UA) (Negative) Urine Ketones (Negative) 10/19/21 Range/Units 07:18 Hgb (13.0-17.5) gm/dL Hct (39.0-53.0) % Lymphocytes # (1.0-4.8) k/uL APTT (22.0-30.0) sec Sodium (137-145) mmol/L Glucose (74-99) mg/dL POC Glucose (mg/dL) 212 H (70-110) mg/dL Hemoglobin A1c (0.0-6.0) % Plasma Lactic Acid Edgar (0.7-2.0) mmol/L Magnesium (1.6-2.3) mg/dL Total Bilirubin (0.2-1.3) mg/dL Urine Glucose (UA) (Negative) Urine Ketones (Negative) Thrombosis Risk Factor Assmnt - Choose All That Apply Each Risk Factor Represents 3 Points: Age 75 years or older Thrombosis Risk Factor Assessment Total Risk Factor Score: 3 Thrombosis Risk Factor Assessment Level: Moderate Risk Assessment and Plan Plan: Generalized weakness with multiple falls Hyperglycemia on presentation with glucose at 516 Abnormal computed tomography scan of the chest with right upper lobe and right lower lobe pulmonary nodule Underlying history of [id number] diabetes mellitus Underlying history of hypertension Underlying history of hyperlipidemia Underlying history of gastroesophageal reflux disease Underlying history of benign prostatic hypertrophy Underlying history of asthma maintained on albuterol inhaler At this time patient is admitted to medical floor It's not clear whether patient was taking his medications at home he is a very poor historian Will monitor glucose level and adjust medications as needed Pulmonary consultation was requested in regard to abnormal computed tomography scan of the chest will follow closely
[2021-10-19 12:53] LABS: Glucose,Whole Blood 153 mg/dL (70-110)
[2021-10-19] MEDS: lisinopriL 10 MG TAB PO SCH (14:58)
[2021-10-19 16:42] LABS: Glucose,Whole Blood 206 mg/dL (70-110)
[2021-10-19 19:58] LABS: Glucose,Whole Blood 170 mg/dL (70-110)
[2021-10-20 06:54] LABS: Glucose,Whole Blood 209 mg/dL (70-110)
[2021-10-20] MEDS: INSULIN ASPART (NovoLOG) 100 UNIT/ML VIAL SQ SCH ×4 (08:00→21:22)
[2021-10-20] MEDS: lisinopriL 10 MG TAB PO SCH (08:00)
[2021-10-20 09:30] LABS: Basophils # (A) 0.04 X 10*3/uL (0.00-0.10); Basophils % (A) 0.6 %; Eosinophils # (A) 0.27 X 10*3/uL (0.04-0.35); Eosinophils % (A) 4.3 %; HGB 11.8 g/dL (13.0-17.0); Immature Grans, Automated 1.1 %; Lymphocytes # (A) 1.14 X 10*3/uL (0.90-5.00); Lymphocytes % (A) 18.2 %; MCH 27.7 pg (27.0-32.0); MCHC 31.9 g/dL (32.0-37.0); MCV 86.9 fL (80.0-97.0); Mean Platelet Volume 9.5 fL (9.5-12.2); Monocytes # (A) 0.87 X 10*3/uL (0.20-1.00); Monocytes % (A) 13.9 %; NRBC Per 100 WBC 0 /100 WBCS (0.0-0.0); Neutrophils # (A) 3.87 X 10*3/uL (1.80-7.70); Neutrophils % (A) 61.9 %; Platelet Count 215 X 10*3/uL (140-440); RBC 4.26 X 10*6/uL (4.40-5.60); RDW 14.9 % (11.5-14.5); WBC 6.26 X 10*3/uL (4.50-10.00)
[2021-10-20 09:42] LABS: African American GFR (CKD) 101.8 (60.0-200.0); Albumin 3.6 g/dL (3.8-4.9); Albumin/Globulin Ratio 1.72 (1.60-3.17); Anion Gap 11.7 mmol/L (10.00-18.00); BUN/Creat Ratio 15.01 Ratio (12.00-20.00); Blood Urea Nitrogen 10.7 mg/dL (9.0-27.0); Calcium 8.9 mg/dL (8.7-10.3); Carbon Dioxide 21.6 mmol/L (20.0-27.5); Globulin 2.1 g/dL (1.6-3.3); Non-African American GFR(CKD) 87.8 (60.0-200.0); Potassium 3.7 mmol/L (3.5-5.5); Total Protein 5.7 g/dL (6.2-8.2)
[2021-10-20 11:30] LABS: Glucose,Whole Blood 210 mg/dL (70-110)
[2021-10-20] MEDS ORDERED: ALBUTEROL NEBULIZED 2.5 MG/3 ML INHALATION PRN (12:26)
[2021-10-20 13:17] VITALS: BMI 27.2
--- NOTE | 2021-10-20 13:34 | P.CNPUL ---
History of Present Illness Consult date: 10/20/21 Requesting physician: Jessica Rosenberg Reason for consult: abnormal CXR/CT Chief complaint: Status post fall History of present illness: This is a pleasant 81-year-old male patient who follows with as his primary care provider. He has a history of diabetes mellitus, hyperlipidemia, gastroesophageal reflux disease, hypertension, BPH, peripheral vascular disease with previous PTCA and stenting of the right leg, former smoker. He became weak and states he has been becoming weaker with falls and fell out of bed and presented here to the emergency room 10/18/2021 for the same. He lives in an apartment alone. He had been in the emergency room for a follow-up on 10/16/[address] angiogram was performed that ruled out pulmonary embolism. He was noted to have a right upper lobe pulmonary nodule measuring 2.5 x 2.0 cm along with a dominant right lower lobe mass measuring 4.3 x 3.9 x 3.8 cm with internal calcification. We are consulted for the same. If he is seen today in consultation on the regular medical floor. He is currently sitting up in a chair at the bedside. Awake and alert in no acute distress. He denies any shortness of breath, cough or congestion. No hemoptysis. His main complaint is posterior back pain. He does have weakness of the lower extre mities. He appears somewhat unkept. White count 6.2. Hemoglobin 11.8. Platelets 2:15. Sodium 137. Potassium 3.7. BUN 11. Creatinine 0.7. Glucose initially 516, currently 183. Urinalysis with 4+ glucose, 2+ ketones. Acetone negative. Review of Systems REVIEW OF SYSTEMS: CONSTITUTIONAL: Generalized weakness, falls. Denies any recent significant weight loss or weight gain. EYES: Denies change in vision. EARS, NOSE, MOUTH, THROAT: Denies headaches, denies sore throat. CARDIOVASCULAR: Denies chest pain, palpitations or syncopal episodes. RESPIRATORY: Denies shortness of breath, cough, congestion or hemoptysis. GASTROINTESTINAL: Denies change in appetite, denies abdominal pain GENITOURINARY: Denies hematuria, denies infections. MUSKULOSKELETAL: Denies pain, denies swelling. INTEGUMENTARY: Denies rash, denies eczema. NEUROLOGICAL: Weakness. Falls. Denies recent memory loss, no recent seizure activity. PSYCHIATRIC: Denies anxiety, denies depression. HEMATOLOGIC/LYMPHATIC: Denies anemia, denies enlarged lymph nodes. Past Medical History Past Medical History: Diabetes Mellitus, Eye Disorder, Hyperlipidemia, Hypertension, Prostate Disorder, Vascular Disorder Additional Past Medical History / Comment(s): Glaucoma. Dysphagia. BPH. Dryness legs. History of Any Multi-Drug Resistant Organisms: None Reported Past Surgical History: Adenoidectomy, Tonsillectomy Additional Past Surgical History / Comment(s): COLONOSCOPY. BILAT CATARACTS. PTBA Lt leg; PTBA w/ stent Rt leg. 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 smoked age [age]yr, 2 ppd. Past Drug Use History: None Reported - Past Family History Mother Family Medical History: Cancer Father Family Medical History: CVA/TIA Medications and Allergies Home Medications Medication Instructions Recorded Confirmed Type Simvastatin [Zocor] 20 mg PO DAILY 07/16/17 10/18/21 History lisinopriL [Zestril] 10 mg PO DAILY 07/16/17 10/18/21 History metFORMIN HCL [Glucophage] 1,500 mg PO DAILY 07/16/17 10/18/21 History Clopidogrel [Plavix] 75 mg PO DAILY #90 tab 04/20/19 10/18/21 Rx Latanoprost/Pf [Latanoprost 0.005% 1 drop BOTH EYES HS 05/01/21 10/18/21 History Eye Drop] Omeprazole [PriLOSEC] 20 mg PO DAILY 05/01/21 10/18/21 History metFORMIN HCL [Glucophage] 1,000 mg PO HS 05/01/21 10/18/21 History Albuterol Inhaler [Ventolin Hfa 1 - 2 puff INHALATION RT-Q4H PRN 10/16/21 10/18/21 History Inhaler] Allergies Allergy/AdvReac Type Severity Reaction Status Date / Time No Known Allergies Allergy Verified 10/18/21 15:20 Physical Exam Vitals: Vital Signs Temp Pulse Resp BP Pulse Ox 10/20/21 07:57 97.9 F 85 16 177/79 96 10/20/21 02:19 98.0 F 96 17 175/84 99 10/19/21 19:30 97.8 F 74 18 132/71 98 10/19/21 14:00 98.4 F 78 17 166/67 98 Intake and Output 10/19/21 10/20/21 10/20/21 22:59 06:59 14:59 Intake Total 1150 540 Output Total 200 950 Balance 950 -410 Intake: IV 750 Sodium Chloride 0.9% 1, 750 000 ml @ 75 mls/hr IV . [id number] ONE Rx#:[id number] Oral 400 540 Output: Urine 200 950 Other: Voiding Method External Catheter # Voids 4 GENERAL EXAM: Alert, pleasant 81-year-old male patient, on room air, comfortable in no apparent distress. HEAD: Normocephalic. EYES: Normal reaction of pupils, equal size. NOSE: Clear with pink turbinates. THROAT: No erythema or exudates. NECK: No masses, no JVD. CHEST: No chest wall deformity. LUNGS: Equal air entry with no crackles, wheeze, rhonchi or dullness. CVS: S1 and S2 normal with no audible murmur, regular rhythm. ABDOMEN: No hepatosplenomegaly, normal bowel sounds, no guarding or rigidity. SPINE: No scoliosis or deformity SKIN: No rashes CENTRAL NERVOUS SYSTEM: No focal deficits, tone is normal in all 4 extremities. EXTREMITIES: There is no peripheral edema. No clubbing, no cyanosis. Peripheral pulses are intact. Results - Laboratory Findings CBC and BMP: 10/20/21 05:27 10/20/21 05:27 PT/INR, D-dimer PT 10.8 sec (9.0-12.0) 10/18/21 12:56 INR 1.0 (<1.2) 10/18/21 12:56 Abnormal lab findings: Abnormal Labs 10/18/21 10/18/21 10/18/21 12:51 12:56 12:56 RBC Hgb 12.1 L Hct 38.7 L MCHC RDW Immature Gran # Lymphocytes # 0.6 L APTT 19.4 L Sodium Glucose POC Glucose (mg/dL) 506 H Hemoglobin A1c Plasma Lactic Acid Edgar Magnesium Total Bilirubin Total Protein Albumin Urine Glucose (UA) Urine Ketones 10/18/21 10/18/21 10/18/21 12:56 12:56 12:56 RBC Hgb Hct MCHC RDW Immature Gran # Lymphocytes # APTT Sodium 134 L Glucose 516 H* POC Glucose (mg/dL) Hemoglobin A1c Plasma Lactic Acid Edgar 2.6 H* Magnesium 1.5 L Total Bilirubin 1.6 H Total Protein Albumin Urine Glucose (UA) 4+ H Urine Ketones 2+ H 10/18/21 10/18/21 10/18/21 12:56 15:20 16:47 RBC Hgb Hct MCHC RDW Immature Gran # Lymphocytes # APTT Sodium Glucose POC Glucose (mg/dL) 414 H 271 H Hemoglobin A1c 10.4 H Plasma Lactic Acid Edgar Magnesium Total Bilirubin Total Protein Albumin Urine Glucose (UA) Urine Ketones 10/18/21 10/18/21 10/19/21 17:50 22:15 00:28 RBC Hgb Hct MCHC RDW Immature Gran # Lymphocytes # APTT Sodium Glucose POC Glucose (mg/dL) 171 H 115 H 153 H Hemoglobin A1c Plasma Lactic Acid Edgar Magnesium Total Bilirubin Total Protein Albumin Urine Glucose (UA) Urine Ketones 10/19/21 10/19/21 10/19/21 07:18 12:52 16:40 RBC Hgb Hct MCHC RDW Immature Gran # Lymphocytes # APTT Sodium Glucose POC Glucose (mg/dL) 212 H 153 H 206 H Hemoglobin A1c Plasma Lactic Acid Edgar Magnesium Total Bilirubin Total Protein Albumin Urine Glucose (UA) Urine Ketones 10/19/21 10/20/21 10/20/21 19:56 05:27 05:27 RBC 4.26 L Hgb 11.8 L Hct 37.0 L MCHC 31.9 L RDW 14.9 H Immature Gran # 0.07 H Lymphocytes # APTT Sodium Glucose 183 H POC Glucose (mg/dL) 170 H Hemoglobin A1c Plasma Lactic Acid Edgar Magnesium Total Bilirubin Total Protein 5.7 L Albumin 3.6 L Urine Glucose (UA) Urine Ketones 10/20/21 10/20/21 06:51 11:29 RBC Hgb Hct MCHC RDW Immature Gran # Lymphocytes # APTT Sodium Glucose POC Glucose (mg/dL) 209 H 210 H Hemoglobin A1c Plasma Lactic Acid Edgar Magnesium Total Bilirubin Total Protein Albumin Urine Glucose (UA) Urine Ketones - Diagnostic Findings Chest x-ray: image reviewed Assessment and Plan Assessment: Generalized weakness and falls of unclear etiology Diabetes, poorly controlled with admitting blood glucose 516 Right upper lobe pulmonary nodule measuring 2.5 x 2.0 cm along with a dominant right lower lobe mass measuring 4.3 x 3.9 x 3.8 cm with internal calcification. Hyperlipidemia Hypertension BPH Peripheral vascular disease with previous stenting of the right lower extremity Former smoker Plan: The patient was seen and evaluated Chest x-ray, previous CT angiogram, labs and medications reviewed Stable and on room air Recommended outpatient PET scan account services manager consult regarding medical debility We'll continue to follow and make further recommendations based on his clinical status I have personally seen and examined the patient, performed the documentation and the assessment and plan as written. Number of minutes spent on the visit: 20.
[2021-10-20] MEDS: PANTOPRAZOLE 40 MG TABLET PO SCH (13:39)
[2021-10-20] MEDS: ATORVASTATIN 10 MG TAB PO SCH (13:39)
[2021-10-20] MEDS: CLOPIDOGREL 75 MG TAB PO SCH (13:39)
--- NOTE | 2021-10-20 14:42 | P.PN ---
Subjective Progress Note Date: 10/20/21 Juan Castelan, is an 81 year old male who presented to [facility] emergency room with a chief complaint of multiple injuries after sustaining a fall at home He was evaluated in the emergency room vital examination on presentation revealed a temperature of 98.3 pulse 94 respiration 18 blood pressure 147/70 pulse ox 95% on room air Laboratory data reveals a white blood count of 8.4 hemoglobin 12.1 platelet count 223 sodium 134 BUN 13 creatinine 0.69 glucose level was 516 Testing in the emergency room revealed chest x-ray done in the emergency room revealed no acute process, however patient was in the emergency room 1 day prior at that time he had a computed tomography scan of the chest that revealed right upper lobe pulmonary nodule and a right lower lobe pulmonary mass. Patient was admitted to medical floor for further evaluation and treatment On 10/20/2021 patient was seen and examined on the medical floor he is alert and oriented 3 in no apparent distress he is having significant difficulty standing and walking he is complaining of low back pain and bilateral hip pain otherwise he denies any complaints there is no fever or chills no headache or dizziness no chest pain no shortness of breath no cough no nausea or vomiting no abdominal pain no diarrhea no blood in the stools no burning with urination no frequency or urgency and no hematuria. Objective - Vital Signs Vital signs: Vital Signs Temp 97.9 F 10/20/21 07:57 Pulse 85 10/20/21 07:57 Resp 16 10/20/21 07:57 BP 177/79 10/20/21 07:57 Pulse Ox 96 10/20/21 07:57 FiO2 Intake & Output 10/19/21 10/20/21 10/20/21 18:59 06:59 18:59 Intake Total 1150 540 Output Total 200 950 Balance 950 -410 Intake: IV 750 Sodium Chloride 0.9% 1, 750 000 ml @ 75 mls/hr IV . [id number] ONE Rx#:[id number] Oral 400 540 Output: Urine 200 950 Other: Voiding Method External Catheter # Voids 4 - Exam In general patient is alert and oriented x 3 in no distress HEENT head normocephalic and atraumatic Neck is supple no JVD no goiter no lymphadenopathy no carotid bruit Chest examination is clear to auscultation no crackles no wheezing Cardiac exam reveals regular heart sounds S1 and S2 no gallops no murmurs Abdomen is soft nontender no organomegaly with normal bowel sounds Extremity exam reveals no edema no cyanosis or clubbing, patient has multiple scabbing wounds on bilateral pretibial areas, he has a bruise on the left side of his face Neurological examination reveals no gross focal deficits - Labs CBC & Chem 7: 10/20/21 05:27 10/20/21 05:27 Labs: Abnormal Lab Results - Last 24 Hours (Table) 10/19/21 10/19/21 10/19/21 Range/Units 12:52 16:40 19:56 RBC (4.40-5.60) X 10*6/uL Hgb (13.0-17.0) g/dL Hct (39.6-50.0) % MCHC (32.0-37.0) g/dL RDW (11.5-14.5) % Immature Gran # (0.00-0.04) X 10*3/uL Glucose (70-110) mg/dL POC Glucose (mg/dL) 153 H 206 H 170 H (70-110) mg/dL Total Protein (6.2-8.2) g/dL Albumin (3.8-4.9) g/dL 10/20/21 10/20/21 10/20/21 Range/Units 05:27 05:27 06:51 RBC 4.26 L (4.40-5.60) X 10*6/uL Hgb 11.8 L (13.0-17.0) g/dL Hct 37.0 L (39.6-50.0) % MCHC 31.9 L (32.0-37.0) g/dL RDW 14.9 H (11.5-14.5) % Immature Gran # 0.07 H (0.00-0.04) X 10*3/uL Glucose 183 H (70-110) mg/dL POC Glucose (mg/dL) 209 H (70-110) mg/dL Total Protein 5.7 L (6.2-8.2) g/dL Albumin 3.6 L (3.8-4.9) g/dL 10/20/21 Range/Units 11:29 RBC (4.40-5.60) X 10*6/uL Hgb (13.0-17.0) g/dL Hct (39.6-50.0) % MCHC (32.0-37.0) g/dL RDW (11.5-14.5) % Immature Gran # (0.00-0.04) X 10*3/uL Glucose (70-110) mg/dL POC Glucose (mg/dL) 210 H (70-110) mg/dL Total Protein (6.2-8.2) g/dL Albumin (3.8-4.9) g/dL Assessment and Plan Plan: Generalized weakness with multiple falls Hyperglycemia on presentation with glucose at 516 Abnormal computed tomography scan of the chest with right upper lobe and right lower lobe pulmonary nodule Underlying history of rao-zhtpzpx-lvnwtzyjf diabetes mellitus Underlying history of hypertension Underlying history of hyperlipidemia Underlying history of gastroesophageal reflux disease Underlying history of benign prostatic hypertrophy Underlying history of asthma maintained on albuterol inhaler At this time patient is admitted to medical floor It's not clear whether patient was taking his medications at home he is a very poor historian Will monitor glucose level and adjust medications as needed Pulmonary consultation was requested in regard to abnormal computed tomography scan of the chest will follow closely
--- NOTE | 2021-10-20 15:52 | XR ---
EXAMINATION TYPE: XR lumbar spine 2 or 3V DATE OF EXAM: 10/20/2021 CLINICAL HISTORY: Fall, low back pain. TECHNIQUE: Three views of the lumbar spine are submitted. COMPARISON: None. FINDINGS: There are 5 lumbar type vertebral bodies identified. Grade 2 anterolisthesis of L5 on S1 with bilater al pars defects. Multilevel degenerative disc disease with disc space narrowing, endplate cirrhosis, and anterior steatosis. Multilevel facet arthropathy. The overlying soft tissue appears unremarkable. Vascular sclerosis. Right iliac stent graft. IMPRESSION: * No acute fracture. * Grade 2 anterolisthesis of L5 and S1 with bilateral pars defects. * Moderate degenerative disc changes.
--- NOTE | 2021-10-20 15:54 | XR ---
EXAMINATION TYPE: XR Hip Bilateral Complete DATE OF EXAM: 10/20/2021 3:46 PM INDICATION: Patient age:Male; 81 years old; Reason for study: fall with bilateral hip pain; PHH. COMPARISON: None. TECHNIQUE: Bilateral hips were examined in AP and lateral projections. FINDINGS: No evidence of any acute osseous pathology, joint dislocation, or soft tissue swelling. Mil d posterior changes of both hips with disc space narrowing and osteophytosis. Left femoral vascular s tent graft. Vascular sclerosis. IMPRESSION: * No acute osseous pathology. * Mild osteoarthritic changes of both hips.
[2021-10-20 16:18] LABS: Glucose,Whole Blood 150 mg/dL (70-110)
[2021-10-20] MEDS: metFORMIN 500 MG TAB PO SCH (17:09)
[2021-10-20 20:48] LABS: Glucose,Whole Blood 122 mg/dL (70-110)
[2021-10-20] MEDS: LATANOPROST 0.005% OPHTH DROPS 2.5 ML BTL BOTH EYES SCH (21:47)
[2021-10-21 06:46] LABS: Glucose,Whole Blood 145 mg/dL (70-110)
[2021-10-21] MEDS: INSULIN ASPART (NovoLOG) 100 UNIT/ML VIAL SQ SCH ×4 (07:51→20:48)
[2021-10-21] MEDS: metFORMIN 500 MG TAB PO SCH ×2 (07:56→18:08)
[2021-10-21] MEDS: CLOPIDOGREL 75 MG TAB PO SCH (07:56)
[2021-10-21] MEDS: ATORVASTATIN 10 MG TAB PO SCH (07:56)
[2021-10-21] MEDS: PANTOPRAZOLE 40 MG TABLET PO SCH (07:56)
[2021-10-21] MEDS: lisinopriL 10 MG TAB PO SCH (07:57)
[2021-10-21 11:15] LABS: Glucose,Whole Blood 156 mg/dL (70-110)
--- NOTE | 2021-10-21 14:14 | P.PN ---
Subjective Progress Note Date: 10/21/21 This is a pleasant 81-year-old male patient who follows with as his primary care provider. He has a history of diabetes mellitus, hyperlipidemia, gastroesophageal reflux disease, hypertension, BPH, peripheral vascular disease with previous PTCA and stenting of the right leg, former smoker. He became weak and states he has been becoming weaker with falls and fell out of bed and presented here to the emergency room 10/18/2021 for the same. He lives in an apartment alone. He had been in the emergency room for a follow-up on 10/16/20[address] at [address] a CT angiogram was performed that ruled out pulmonary embolism. He was noted to have a right upper lobe pulmonary nodule measuring 2.5 x 2.0 cm along with a dominant right lower lobe mass measuring 4.3 x 3.9 x 3.8 cm with internal calcification. We are consulted for the same. If he is seen today in consultation on the regular medical floor. He is currently sitting up in a chair at the bedside. Awake and alert in no acute distress. He denies any shortness of breath, cough or congestion. No hemoptysis. His main complaint is posterior back pain. He does have weakness of the lower extremities. He appears somewhat unkept. White count 6.2. Hemoglobin 11.8. Platelets 2:15. Sodium 137. Potassium 3.7. BUN 11. Creatinine 0.7. Glucose initially 516, currently 183. Urinalysis with 4+ glucose, 2+ ketones. Acetone negative. The patient is seen today 10/21/2021 follow-up on the regular medical floor. He is currently sitting up in a chair at the bedside. Awake and alert in no acute distress. He is maintaining good O2 saturations in the upper 90s on room air. He's afebrile. Hemodynamically stable. X-rays of the lumbar spine revealed no acute fracture. X-rays of the bilateral hip revealed no acute fracture. Blood glucose 156. Objective - Vital Signs Vital signs: Vital Signs Temp 97.7 F 10/21/21 13:56 Pulse 74 10/21/21 13:56 Resp 16 10/21/21 13:56 BP 164/77 10/21/21 13:56 Pulse Ox 98 10/21/21 13:56 FiO2 Intake & Output 10/20/21 10/21/21 10/21/21 18:59 06:59 18:59 Output Total 500 300 Balance -500 -300 Weight 86.183 kg Output: Urine 500 300 Other: Voiding Method External Catheter External Catheter External Catheter - Exam GENERAL EXAM: Alert, pleasant 81-year-old male patient, on room air, up in a chair at the bedside, comfortable in no apparent distress. HEAD: Normocephalic. EYES: Normal reaction of pupils, equal size. NOSE: Clear with pink turbinates. THROAT: No erythema or exudates. NECK: No masses, no JVD. CHEST: No chest wall deformity. LUNGS: Equal air entry with no crackles, wheeze, rhonchi or dullness. CVS: S1 and S2 normal with no audible murmur, regular rhythm. ABDOMEN: No hepatosplenomegaly, normal bowel sounds, no guarding or rigidity. SPINE: No scoliosis or deformity SKIN: No rashes CENTRAL NERVOUS SYSTEM: No focal deficits, tone is normal in all 4 extremities. EXTREMITIES: There is no peripheral edema. No clubbing, no cyanosis. Peripheral pulses are intact. - Labs CBC & Chem 7: 10/20/21 05:27 10/20/21 05:27 Labs: Abnormal Lab Results - Last 24 Hours (Table) 10/20/21 10/20/21 10/20/21 Range/Units 05:27 16:16 20:46 POC Glucose (mg/dL) 150 H 122 H (70-110) mg/dL Hemoglobin A1c 10.4 H (0.0-6.0) % 10/21/21 10/21/21 Range/Units 06:45 11:13 POC Glucose (mg/dL) 145 H 156 H (70-110) mg/dL Hemoglobin A1c (0.0-6.0) % Assessment and Plan Assessment: Generalized weakness and falls of unclear etiology Diabetes, poorly controlled with admitting blood glucose 516 Right upper lobe pulmonary nodule measuring 2.5 x 2.0 cm along with a dominant right lower lobe mass measuring 4.3 x 3.9 x 3.8 cm with internal calcification. Hyperlipidemia Hypertension BPH Peripheral vascular disease with previous stenting of the right lower extremity Former smoker Plan: The patient was seen and evaluated Stable and on room air Plan is for subacute rehabilitation/ECF Patient stated he does not want any follow-up on the lung nodules at this point We will see the patient on an as-needed basis I have personally seen and examined the patient, performed the documentation and the assessment and plan as written. Number of minutes spent on the visit: 10.
--- NOTE | 2021-10-21 15:32 | P.PN ---
Subjective Progress Note Date: 10/21/21 Juan Castelan, is an 81 year old male who presented to [facility] emergency room with a chief complaint of multiple injuries after sustaining a fall at home He was evaluated in the emergency room vital examination on presentation revealed a temperature of 98.3 pulse 94 respiration 18 blood pressure 147/70 pulse ox 95% on room air Laboratory data reveals a white blood count of 8.4 hemoglobin 12.1 platelet count 223 sodium 134 BUN 13 creatinine 0.69 glucose level was 516 Testing in the emergency room revealed chest x-ray done in the emergency room revealed no acute process, however patient was in the emergency room 1 day prior at that time he had a computed tomography scan of the chest that revealed right upper lobe pulmonary nodule and a right lower lobe pulmonary mass. Patient was admitted to medical floor for further evaluation and treatment On 10/20/2021 patient was seen and examined on the medical floor he is alert and oriented 3 in no apparent distress he is having significant difficulty standing and walking he is complaining of low back pain and bilateral hip pain otherwise he denies any complaints there is no fever or chills no headache or dizziness no chest pain no shortness of breath no cough no nausea or vomiting no abdominal pain no diarrhea no blood in the stools no burning with urination no frequency or urgency and no hematuria. On 10/21/2021 patient was seen and examined on the medical floor he is alert and oriented 3 in no apparent distress, he is complaining of low back pain and bilateral hip pain otherwise he denies any complaints there is no fever or chills no headache or dizziness no chest pain no shortness of breath no cough no nausea or vomiting no abdominal pain no diarrhea and no urinary symptoms his vital exam reveals a temperature of 98.4 pulse 82 respiration 16 blood pressure 179/70 pulse ox 96% on room air laboratory data reveals a white blood count of 6.26 hemoglobin 11.8 platelet count 115 BUN 10.7 creatinine 0.7 x-rays of the lumbar spine and bilateral hips were within normal limits Objective - Vital Signs Vital signs: Vital Signs Temp 97.7 F 10/21/21 13:56 Pulse 74 10/21/21 13:56 Resp 16 10/21/21 13:56 BP 164/77 10/21/21 13:56 Pulse Ox 98 10/21/21 13:56 FiO2 Intake & Output 10/20/21 10/21/2122 18:59 06:59 18:59 Output Total 500 300 Balance -500 -300 Weight 86.183 kg Output: Urine 500 300 Other: Voiding Method External Catheter External Catheter External Catheter - Exam In general patient is alert and oriented x 3 in no distress HEENT head normocephalic and atraumatic Neck is supple no JVD no goiter no lymphadenopathy no carotid bruit Chest examination is clear to auscultation no crackles no wheezing Cardiac exam reveals regular heart sounds S1 and S2 no gallops no murmurs Abdomen is soft nontender no organomegaly with normal bowel sounds Extremity exam reveals no edema no cyanosis or clubbing, patient has multiple scabbing wounds on bilateral pretibial areas, he has a bruise on the left side of his face Neurological examination reveals no gross focal deficits - Labs CBC & Chem 7: 10/20/21 05:27 10/20/21 05:27 Labs: Abnormal Lab Results - Last 24 Hours (Table) 10/20/21 10/20/21 10/20/21 Range/Units 05:27 16:16 20:46 POC Glucose (mg/dL) 150 H 122 H (70-110) mg/dL Hemoglobin A1c 10.4 H (0.0-6.0) % 10/21/21 10/21/21 Range/Units 06:45 11:13 POC Glucose (mg/dL) 145 H 156 H (70-110) mg/dL Hemoglobin A1c (0.0-6.0) % Assessment and Plan Plan: Generalized weakness with multiple falls Hyperglycemia on presentation with glucose at 516 Abnormal computed tomography scan of the chest with right upper lobe and right lower lobe pulmonary nodule Underlying history of [id number] diabetes mellitus Underlying history of hypertension Underlying history of hyperlipidemia Underlying history of gastroesophageal reflux disease Underlying history of benign prostatic hypertrophy Underlying history of asthma maintained on albuterol inhaler At this time patient is admitted to medical floor It's not clear whether patient was taking his medications at home he is a very poor historian Will monitor glucose level and adjust medications as needed Pulmonary consultation was requested in regard to abnormal computed tomography scan of the chest will follow closely
[2021-10-21 16:25] LABS: Glucose,Whole Blood 313 mg/dL (70-110)
[2021-10-21 20:34] LABS: Glucose,Whole Blood 151 mg/dL (70-110)
[2021-10-21] MEDS: LATANOPROST 0.005% OPHTH DROPS 2.5 ML BTL BOTH EYES SCH (20:48)
[2021-10-22 07:25] LABS: Glucose,Whole Blood 167 mg/dL (70-110)
[2021-10-22] MEDS: ATORVASTATIN 10 MG TAB PO SCH (08:07)
[2021-10-22] MEDS: PANTOPRAZOLE 40 MG TABLET PO SCH (08:07)
[2021-10-22] MEDS: CLOPIDOGREL 75 MG TAB PO SCH (08:07)
[2021-10-22] MEDS: INSULIN ASPART (NovoLOG) 100 UNIT/ML VIAL SQ SCH ×4 (08:07→21:44)
[2021-10-22] MEDS: lisinopriL 10 MG TAB PO SCH (08:07)
[2021-10-22] MEDS: metFORMIN 500 MG TAB PO SCH ×2 (08:07→17:10)
[2021-10-22 11:08] LABS: Glucose,Whole Blood 156 mg/dL (70-110)
[2021-10-22] MEDS: LOSARTAN 50 MG TAB PO SCH (12:06)
[2021-10-22] MEDS: amLODIPine 5 MG TAB PO SCH (14:47)
[2021-10-22] MEDS ORDERED: hydrALAZINE HCL 20 MG/ML 1 ML VIAL IVP PRN (15:13)
--- NOTE | 2021-10-22 15:16 | P.PN ---
Subjective Progress Note Date: 10/22/21 Juan Castelan, is an 81 year old male who presented to [facility] emergency room with a chief complaint of multiple injuries after sustaining a fall at home He was evaluated in the emergency room vital examination on presentation revealed a temperature of 98.3 pulse 94 respiration 18 blood pressure 147/70 pulse ox 95% on room air Laboratory data reveals a white blood count of 8.4 hemoglobin 12.1 platelet count 223 sodium 134 BUN 13 creatinine 0.69 glucose level was 516 Testing in the emergency room revealed chest x-ray done in the emergency room revealed no acute process, however patient was in the emergency room 1 day prior at that time he had a computed tomography scan of the chest that revealed right upper lobe pulmonary nodule and a right lower lobe pulmonary mass. Patient was admitted to medical floor for further evaluation and treatment On 10/20/2021 patient was seen and examined on the medical floor he is alert and oriented 3 in no apparent distress he is having significant difficulty standing and walking he is complaining of low back pain and bilateral hip pain otherwise he denies any complaints there is no fever or chills no headache or dizziness no chest pain no shortness of breath no cough no nausea or vomiting no abdominal pain no diarrhea no blood in the stools no burning with urination no frequency or urgency and no hematuria. On 10/21/2021 patient was seen and examined on the medical floor he is alert and oriented 3 in no apparent distress, he is complaining of low back pain and bilateral hip pain otherwise he denies any complaints there is no fever or chills no headache or dizziness no chest pain no shortness of breath no cough no nausea or vomiting no abdominal pain no diarrhea and no urinary symptoms his vital exam reveals a temperature of 98.4 pulse 82 respiration 16 blood pressure 179/70 pulse ox 96% on room air laboratory data reveals a white blood count of 6.26 hemoglobin 11.8 platelet count 115 BUN 10.7 creatinine 0.7 x-rays of the lumbar spine and bilateral hips were within normal limits. On 10/22/2021 patient was seen and examined on the medical floor he is alert and oriented 3 in no apparent distress there is no fever or chills no headache or dizziness no chest pain no shortness of breath no cough no nausea or vomiting no abdominal pain no diarrhea and no urinary symptoms, at this time patient continues to have elevated blood pressure readings this in the wrist 10 mg was discontinued and losartan 100 mg was started blood pressure remains elevated at this time will add amlodipine 5 mg by mouth daily Will also add hydralazine when necessary IV. I also asked for an echocardiogram for evaluation possible discharge to rehab tomorrow Objective - Vital Signs Vital signs: Vital Signs Temp 97.9 F 10/22/21 14:00 Pulse 81 10/22/21 14:00 Resp 13 10/22/21 14:00 BP 193/75 10/22/21 14:00 Pulse Ox 97 10/22/21 14:00 FiO2 Intake & Output 10/21/21 10/22/21 10/22/21 18:59 06:59 18:59 Output Total 400 600 Balance -400 -600 Output: Urine 400 600 Other: Voiding Method External Catheter External Catheter External Catheter - Exam In general patient is alert and oriented x 3 in no distress HEENT head normocephalic and atraumatic Neck is supple no JVD no goiter no lymphadenopathy no carotid bruit Chest examination is clear to auscultation no crackles no wheezing Cardiac exam reveals regular heart sounds S1 and S2 no gallops no murmurs Abdomen is soft nontender no organomegaly with normal bowel sounds Extremity exam reveals no edema no cyanosis or clubbing, patient has multiple scabbing wounds on bilateral pretibial areas, he has a bruise on the left side of his face Neurological examination reveals no gross focal deficits - Labs CBC & Chem 7: 10/20/21 05:27 10/20/21 05:27 Labs: Abnormal Lab Results - Last 24 Hours (Table) 10/21/21 10/21/21 10/22/21 Range/Units 16:23 20:31 07:23 POC Glucose (mg/dL) 313 H 151 H 167 H (70-110) mg/dL 10/22/21 Range/Units 11:06 POC Glucose (mg/dL) 156 H (70-110) mg/dL Assessment and Plan Plan: Generalized weakness with multiple falls Hyperglycemia on presentation with glucose at 516 Abnormal computed tomography scan of the chest with right upper lobe and right lower lobe pulmonary nodule Underlying history of zso-qlrtavs-[id number] diabetes mellitus Underlying history of hypertension Underlying history of hyperlipidemia Underlying history of gastroesophageal reflux disease Underlying history of benign prostatic hypertrophy Underlying history of asthma maintained on albuterol inhaler At this time patient is admitted to medical floor It's not clear whether patient was taking his medications at home he is a very poor historian Will monitor glucose level and adjust medications as needed Pulmonary consultation was requested in regard to abnormal computed tomography scan of the chest will follow closely
[2021-10-22 16:48] LABS: Glucose,Whole Blood 230 mg/dL (70-110)
[2021-10-22 20:44] LABS: Glucose,Whole Blood 157 mg/dL (70-110)
[2021-10-22] MEDS: LATANOPROST 0.005% OPHTH DROPS 2.5 ML BTL BOTH EYES SCH (21:44)
[2021-10-23 07:16] LABS: Glucose,Whole Blood 169 mg/dL (70-110)
[2021-10-23] MEDS: INSULIN ASPART (NovoLOG) 100 UNIT/ML VIAL SQ SCH ×2 (08:24→11:38)
[2021-10-23] MEDS: metFORMIN 500 MG TAB PO SCH (08:25)
[2021-10-23] MEDS: PANTOPRAZOLE 40 MG TABLET PO SCH (08:25)
[2021-10-23] MEDS: amLODIPine 5 MG TAB PO SCH (08:25)
[2021-10-23] MEDS: CLOPIDOGREL 75 MG TAB PO SCH (08:25)
[2021-10-23] MEDS: LOSARTAN 50 MG TAB PO SCH (08:25)
[2021-10-23] MEDS: ATORVASTATIN 10 MG TAB PO SCH (08:25)
[2021-10-23 08:44] LABS: Basophils # (A) 0.03 X 10*3/uL (0.00-0.10); Basophils % (A) 0.4 %; Eosinophils # (A) 0.19 X 10*3/uL (0.04-0.35); Eosinophils % (A) 2.8 %; HCT 36.7 % (39.6-50.0); HGB 12.1 g/dL (13.0-17.0); Immature Grans, Automated 0.7 %; Lymphocytes # (A) 0.96 X 10*3/uL (0.90-5.00); Lymphocytes % (A) 14.2 %; Mean Platelet Volume 9.2 fL (9.5-12.2); Monocytes # (A) 1.19 X 10*3/uL (0.20-1.00); Monocytes % (A) 17.7 %; NRBC Per 100 WBC 0 /100 WBCS (0.0-0.0); Neutrophils # (A) 4.32 X 10*3/uL (1.80-7.70); Neutrophils % (A) 64.2 %; Platelet Count 210 X 10*3/uL (140-440); RBC 4.32 X 10*6/uL (4.40-5.60); RDW 14.6 % (11.5-14.5); WBC 6.74 X 10*3/uL (4.50-10.00)
[2021-10-23 09:05] LABS: African American GFR (CKD) 92.5 (60.0-200.0); Albumin 3.7 g/dL (3.8-4.9); Albumin/Globulin Ratio 1.68 (1.60-3.17); Anion Gap 10.3 mmol/L (10.00-18.00); BUN/Creat Ratio 12.78 Ratio (12.00-20.00); Blood Urea Nitrogen 11.5 mg/dL (9.0-27.0); Carbon Dioxide 23.7 mmol/L (20.0-27.5); Globulin 2.2 g/dL (1.6-3.3); Non-African American GFR(CKD) 79.8 (60.0-200.0); Potassium 3.4 mmol/L (3.5-5.5); Total Bilirubin 1.3 mg/dL (0.30-1.20); Total Protein 5.9 g/dL (6.2-8.2)
--- NOTE | 2021-10-23 09:58 | CA ---
Transthoracic Echo Report Name: Juan Castelan Age: 81 Gender: M : 1940 Exam Date: 10/22/2021 14:10 Exam Location: [facility] Ht (in): 60 Wt (lb): 190 Ordering Physician: Jessica Rosenberg MD Attending/Referring Phys: Applications Systems Analyst Valeria Pulido RDCS Procedure CPT: Indications: HTN Cardiac Hx: Technical Quality: Fair Contrast 1: Total Dose (mL): Contrast 2: Total Dose (mL): MEASUREMENTS (Male / Female) Normal Values 2D ECHO LV Diastolic Diameter PLAX 4.2 cm 4.2 - 5.9 / 3.9 - 5.3 cm LV Systolic Diameter PLAX 3.2 cm IVS Diastolic Thickness 1.1 cm 0.6 - 1.0 / 0.6 - 0.9 cm LVPW Diastolic Thickness 1.6 cm 0.6 - 1.0 / 0.6 - 0.9 cm LV Relative Wall Thickness 0.6 RV Internal Dim ED PLAX 2.1 cm M-MODE Aortic Root Diameter MM 3.8 cm MV E Point Septal Separation 0.4 cm DOPPLER MV Area PHT 2.8 cm??? Mitral E Point Velocity 32.7 cm/s Mitral A Point Velocity 77.1 cm/s Mitral E to A Ratio 0.4 MV Deceleration Time 270.9 ms MV E' Velocity 4.5 cm/s Mitral E to MV E' Ratio 7.2 FINDINGS Left Ventricle Left ventricular ejection fraction is estimated at 50-55%. Right Ventricle Normal right ventricular size and function. Right Atrium Normal right atrial size. Left Atrium Normal left atrial size. Mitral Valve Structurally normal mitral valve. Aortic Valve Aortic valve not well visualized. Tricuspid Valve Tricuspid valve not well visualized. Pulmonic Valve Pulmonic valve not well visualized. Pericardium Normal pericardium. Aorta Aortic root and proximal ascending aorta not well visualized. CONCLUSIONS Technically difficult study for interpretation Normal LV dimension and systolic function Normal intracardiac valves Previewed by: Dr. Calos Casarez MD (Electronically Signed) Final Date: 23 October 2021 09:57
[2021-10-23 10:52] LABS: Glucose,Whole Blood 155 mg/dL (70-110)
[2021-10-23 14:35] VITALS: BP 162/69; PULSE 74; RESP 16; TEMP 97.9
--- NOTE | 2021-10-23 15:08 | P.DS ---
Providers Date of admission: 10/18/21 14:53 Expected date of discharge: 10/23/21 Attending physician: Jessica Rosenberg Consults: 10/19/21 11:05 Consult Physician Routine Consulting Provider: Re Garay Consult Reason/Comments: Abnormal chest CT scan, pulmonary nodules Do you want consulting provider notified?: Yes Primary care physician: Melvina Chew [facility] Course: Diagnosis on discharge: Generalized weakness with multiple falls Hyperglycemia on presentation with glucose at 516 Abnormal computed tomography scan of the chest with right upper lobe and right lower lobe pulmonary nodule Underlying history of [id number] diabetes mellitus Underlying history of hypertension Underlying history of hyperlipidemia Underlying history of gastroesophageal reflux disease Underlying history of benign prostatic hypertrophy Underlying history of asthma maintained on albuterol inhaler Hospital course: Juan Castelan, is an 81 year old male who presented to [facility] emergency room with a chief complaint of multiple injuries after sustaining a fall at home He was evaluated in the emergency room vital examination on presentation revealed a temperature of 98.3 pulse 94 respiration 18 blood pressure 147/70 pulse ox 95% on room air Laboratory data reveals a white blood count of 8.4 hemoglobin 12.1 platelet count 223 sodium 134 BUN 13 creatinine 0.69 glucose level was 516 Testing in the emergency room revealed chest x-ray done in the emergency room revealed no acute process, however patient was in the emergency room 1 day prior at that time he had a computed tomography scan of the chest that revealed right upper lobe pulmonary nodule and a right lower lobe pulmonary mass. Patient was admitted to medical floor for further evaluation and treatment On 10/20/2021 patient was seen and examined on the medical floor he is alert and oriented 3 in no apparent distress he is having significant difficulty standing and walking he is complaining of low back pain and bilateral hip pain otherwise he denies any complaints there is no fever or chills no headache or dizziness no chest pain no shortness of breath no cough no nausea or vomiting no abdominal pain no diarrhea no blood in the stools no burning with urination no frequency or urgency and no hematuria. On 10/21/2021 patient was seen and examined on the medical floor he is alert and oriented 3 in no apparent distress, he is complaining of low back pain and bilateral hip pain otherwise he denies any complaints there is no fever or chills no headache or dizziness no chest pain no shortness of breath no cough no nausea or vomiting no abdominal pain no diarrhea and no urinary symptoms his vital exam reveals a temperature of 98.4 pulse 82 respiration 16 blood pressure 179/70 pulse ox 96% on room air laboratory data reveals a white blood count of 6.26 hemoglobin 11.8 platelet count 115 BUN 10.7 creatinine 0.7 x-rays of the lumbar spine and bilateral hips were within normal limits. On 10/22/2021 patient was seen and examined on the medical floor he is alert and oriented 3 in no apparent distress there is no fever or chills no headache or dizziness no chest pain no shortness of breath no cough no nausea or vomiting no abdominal pain no diarrhea and no urinary symptoms, at this time patient continues to have elevated blood pressure readings this in the wrist 10 mg was discontinued and losartan 100 mg was started blood pressure remains elevated at this time will add amlodipine 5 mg by mouth daily Will also add hydralazine when necessary IV. I also asked for an echocardiogram for evaluation possible discharge to rehab tomorrow On 10/23/2021 patient was seen and examined on the medical floor he is alert and oriented 3 in no apparent distress there is no fever or chills no headache or dizziness no chest pain no shortness of breath no cough no nausea or vomiting no abdominal pain no diarrhea and no urinary symptoms. At this time echocardiogram was reviewed and is within normal limits, losartan and amlodipine and Coreg were added to patient's regimen due to elevated blood pressure continue to monitor blood pressure at the long term at this time patient is clear to be transferred to long term for rehab Plan - Discharge Summary Discharge Rx Participant: No New Discharge Prescriptions: New carvediloL [Coreg] 3.125 mg PO BID-W/MEALS tab Losartan [Cozaar] 100 mg PO DAILY tab metFORMIN HCL [Glucophage] 500 mg PO BID-W/MEALS tab amLODIPine [Norvasc] 5 mg PO DAILY tab Continue Simvastatin [Zocor] 20 mg PO DAILY Clopidogrel [Plavix] 75 mg PO DAILY #90 tab Latanoprost/Pf [Latanoprost 0.005% Eye Drop] 1 drop BOTH EYES HS Omeprazole [PriLOSEC] 20 mg PO DAILY Albuterol Inhaler [Ventolin Hfa Inhaler] 1 - 2 puff INHALATION RT-Q4H PRN PRN Reason: Shortness Of Breath Discontinued metFORMIN HCL [Glucophage] 1,500 mg PO DAILY lisinopriL [Zestril] 10 mg PO DAILY metFORMIN HCL [Glucophage] 1,000 mg PO HS Discharge Medication List Simvastatin [Zocor] 20 mg PO DAILY 07/16/17 [History] Clopidogrel [Plavix] 75 mg PO DAILY #90 tab 04/20/19 [Rx] Latanoprost/Pf [Latanoprost 0.005% Eye Drop] 1 drop BOTH EYES HS 05/01/21 [History] Omeprazole [PriLOSEC] 20 mg PO DAILY 05/01/21 [History] Albuterol Inhaler [Ventolin Hfa Inhaler] 1 - 2 puff INHALATION RT-Q4H PRN 10/16/21 [History] Losartan [Cozaar] 100 mg PO DAILY tab 10/23/21 [Rx] amLODIPine [Norvasc] 5 mg PO DAILY tab 10/23/21 [Rx] carvediloL [Coreg] 3.125 mg PO BID-W/MEALS tab 10/23/21 [Rx] metFORMIN HCL [Glucophage] 500 mg PO BID-W/MEALS tab 10/23/21 [Rx] Follow up Appointment(s)/Referral(s): Melvina Chew MD [Primary Care Provider] - 1-2 days
[2021-10-23] MEDS ORDERED: carvediloL 3.125 MG TAB PO SCH (17:30)
== END 2021-10-23 16:45 | disposition still patient (30) | DRG 639 ==
LOC: EC 12:41 → 4SSUR 14:53
PROVIDERS: ADMIT Internal Medicine; ATTEND Internal Medicine
DX: E11.65 Type 2 diabetes mellitus with hyperglycemia (principal); E11.51 Type 2 diabetes mellitus with diabetic peripheral angiopathy without gangrene; I10 Essential (primary) hypertension; J45.909 Unspecified asthma, uncomplicated; F10.21 Alcohol dependence, in remission; Z95.820 Peripheral vascular angioplasty status with implants and grafts; R29.6 Repeated falls; R53.1 Weakness; E78.5 Hyperlipidemia, unspecified; K21.9 Gastro-esophageal reflux disease without esophagitis; M54.50 Low back pain, unspecified; M25.552 Pain in left hip; S00.83XA Contusion of other part of head, initial encounter; S80.812A Abrasion, left lower leg, initial encounter; S80.811A Abrasion, right lower leg, initial encounter; M25.551 Pain in right hip; N40.0 Benign prostatic hyperplasia without lower urinary tract symptoms; J98.4 Other disorders of lung; R91.8 Other nonspecific abnormal finding of lung field; H40.9 Unspecified glaucoma; W06.XXXA Fall from bed, initial encounter; Z79.899 Other long term (current) drug therapy; Z79.84 Long term (current) use of oral hypoglycemic drugs; Z79.02 Long term (current) use of antithrombotics/antiplatelets; Z98.41 Cataract extraction status, right eye; Z98.42 Cataract extraction status, left eye; Z87.891 Personal history of nicotine dependence; Z82.3 Family history of stroke; Y92.003 Bedroom of unspecified non-institutional (private) residence as the place of occurrence of the external cause; Z98.61 Coronary angioplasty status
CPT/HCPCS: 36415; 71046; 72100; 73521; 80053; 81003; 82009; 83036; 83605; 83735; 84484; 85025; 85610; 85730; 93005; 93306; 96360; 96361; 99285

== ENCOUNTER 2021-11-05 12:47 | Emergency (ER) | payer MEDICARE ==
[2021-11-05 12:57] VITALS: RESP 16
--- NOTE | 2021-11-05 14:18 | ED ---
Psych HPI - General Chief Complaint: Psychiatric Symptoms Stated Complaint: mental health Time Seen by Provider: 11/05/21 12:58 Source: patient, EMS, RN notes reviewed Mode of arrival: EMS Limitations: no limitations - History of Present Illness Initial Comments: This an 81-year-old male presents emergency department for psychiatric evaluation. Patient was seen here yesterday for similar reasons. Patient states he is currently residing a [facility] he does admit that is not want to be there. He states he was discharged to rehab from the hospital as they found his home inhabitable. Patient denies being suicidal or homicidal. Patient states he is trying to leave the facility. Patient offers no other associated complaints. - Related Data Home Medications Medication Instructions Recorded Confirmed Simvastatin [Zocor] 20 mg PO DAILY 07/16/17 10/18/21 Latanoprost/Pf [Latanoprost 0.005% 1 drop BOTH EYES HS 05/01/21 10/18/21 Eye Drop] Omeprazole [PriLOSEC] 20 mg PO DAILY 05/01/21 10/18/21 Albuterol Inhaler [Ventolin Hfa 1 - 2 puff INHALATION RT-Q4H PRN 10/16/21 10/18/21 Inhaler] Previous Rx's Medication Instructions Recorded Clopidogrel [Plavix] 75 mg PO DAILY #90 tab 04/20/19 Losartan [Cozaar] 100 mg PO DAILY tab 10/23/21 amLODIPine [Norvasc] 5 mg PO DAILY tab 10/23/21 carvediloL [Coreg] 3.125 mg PO BID-W/MEALS tab 10/23/21 metFORMIN HCL [Glucophage] 500 mg PO BID-W/MEALS tab 10/23/21 Allergies Allergy/AdvReac Type Severity Reaction Status Date / Time No Known Allergies Allergy Verified 11/05/21 12:57 Review of Systems ROS Statement: Those systems with pertinent positive or pertinent negative responses have been documented in the HPI. ROS Other: All systems not noted in ROS Statement are negative. Past Medical History Past Medical History: Diabetes Mellitus, Eye Disorder, Hyperlipidemia, Hypertension, Prostate Disorder, Vascular Disorder Additional Past Medical History / Comment(s): Glaucoma. Dysphagia. BPH. Dryness legs. History of Any Multi-Drug Resistant Organisms: None Reported Past Surgical History: Adenoidectomy, Tonsillectomy Additional Past Surgical History / Comment(s): COLONOSCOPY. BILAT CATARACTS. PTBA Lt leg; PTBA w/ stent Rt leg. Past Anesthesia/Blood Transfusion Reactions: No Reported Reaction Past Psychological History: No Psychological Hx Reported Smoking Status: Former smoker Past Alcohol Use History: None Reported Past Drug Use History: None Reported - Past Family History Mother Family Medical History: Cancer Father Family Medical History: CVA/TIA General Exam Limitations: no limitations General appearance: alert, in no apparent distress Head exam: Present: atraumatic, normocephalic, normal inspection Neck exam: Present: normal inspection. Absent: tenderness, meningismus, lymphadenopathy Respiratory exam: Present: normal lung sounds bilaterally. Absent: respiratory distress, wheezes, rales, rhonchi, stridor Cardiovascular Exam: Present: regular rate, normal rhythm, normal heart sounds. Absent: systolic murmur, diastolic murmur, rubs, gallop, clicks GI/Abdominal exam: Present: soft, normal bowel sounds. Absent: distended, tenderness, guarding, rebound, rigid Neurological exam: Present: alert Psychiatric exam: Present: normal affect, normal mood Skin exam: Present: warm, dry, intact, normal color. Absent: rash Course Vital Signs 11/05/21 12:52 Temperature 98.1 F Pulse Rate 90 Respiratory 16 Rate Blood Pressure 102/73 O2 Sat by Pulse 95 Oximetry Medical Decision Making - Medical Decision Making 81-year-old presented for evaluation for Aggression. Patient Has Been Calm and Cooperative, Evaluated Patient Will Be Discharged Back to [facility]. Disposition Clinical Impression: Outbursts of anger Disposition: HOME SELF-CARE Condition: Stable Additional Instructions: Please return to the Emergency Department if symptoms worsen or any other concerns. Is patient prescribed a controlled substance at d/c from ED?: No Referrals: Melvina Chew MD [Primary Care Provider] - 1-2 days Time of Disposition: 15:09
[2021-11-05 16:24] VITALS: BP 128/68; PULSE 78; TEMP 98
== END 2021-11-05 16:23 | disposition home or self-care (01) ==
LOC: EC 12:47
DX: R45.4 Irritability and anger (principal); E11.9 Type 2 diabetes mellitus without complications; E78.5 Hyperlipidemia, unspecified; I10 Essential (primary) hypertension; Z87.891 Personal history of nicotine dependence
CPT/HCPCS: 82075; 99284

== ENCOUNTER 2021-11-05 20:20 | Emergency (ER) | payer MEDICARE ==
[2021-11-05 20:47] VITALS: TEMP 98.5
--- NOTE | 2021-11-05 20:48 | ED ---
General Adult HPI - General Source: EMS Mode of arrival: EMS <Guille Ramirez - Last Filed: 11/05/21 22:38> <Slim Rudolph - Last Filed: 11/06/21 05:03> - General Stated complaint: Altered Mental Time Seen by Provider: 11/05/21 20:22 - History of Present Illness Initial comments: Dictation was produced using [employer] dictation software. please excuse any grammatical, word or spelling errors. Chief Complaint: 81-year-old male presents emergency department for altered mental status and uncooperative behavior History of Present Illness: 81-year-old male here he presents to the emergency department from [facility]. Patient was here earlier today after being evaluated for psychiatric illness. Patient allegedly has been having aggressive behavior towards medical [facility] staff. He was seen here earlier today value by EPS discharge back to [facility]. Today he threw himself on the ground. Patient is having paranoid thought. Denies any suicidal or homicidal ideation. Patient is a poor historian. According to transfer documentation he does not have any history of dementia. The ROS documented in this emergency department record has been reviewed and confirmed by me. Those systems with pertinent positive or negative responses have been documented in the HPI. All other systems are other negative and/or no ncontributory. PHYSICAL EXAM: General Impression: Alert and oriented x3, not in acute distress HEENT: Normocephalic atraumatic, extra-ocular movements intact, pupils equal and reactive to light bilaterally, mucous membranes moist. Cardiovascular: Heart regular rate and rhythm Chest: Able to complete full sentences, no retractions, no tachypnea Abdomen: abdomen soft, non-tender, non-distended, no organomegaly Musculoskeletal: Pulses present and equal in all extremities, no peripheral edema Motor: no focal deficits noted Neurological: CN II-XII grossly intact, no focal motor or sensory deficits noted Skin: Intact with no visualized rashes Psych: Paranoid ED course: 81-year-old male presents emergency department for altered mental status. His symptomatology is suspicious for acute delirium given his advanced age. Laboratory evaluation obtained. CBC remarkable. Metabolic within acceptable limits. Computed tomography scan of brain is unremarkable. (Guille Ramirez) - Related Data Home Medications Medication Instructions Recorded Confirmed Simvastatin [Zocor] 20 mg PO DAILY 07/16/17 11/05/21 Latanoprost/Pf [Latanoprost 0.005% 1 drop BOTH EYES HS 05/01/21 11/05/21 Eye Drop] Albuterol Inhaler [Ventolin Hfa 1 - 2 puff INHALATION RT-Q4H PRN 10/16/21 11/05/21 Inhaler] ALPRAZolam [Xanax] 0.25 mg PO BID PRN 11/05/21 11/05/21 Ativan Gel 0.5mg/0.5ml 0.5 mg TOPICAL BID PRN 11/05/21 11/05/21 Omeprazole 40 mg PO DAILY 11/05/21 11/05/21 metFORMIN HCL [Glucophage] 500 mg PO BID 11/05/21 11/05/21 Previous Rx's Medication Instructions Recorded Clopidogrel [Plavix] 75 mg PO DAILY #90 tab 04/20/19 Losartan [Cozaar] 100 mg PO DAILY tab 10/23/21 amLODIPine [Norvasc] 5 mg PO DAILY tab 10/23/21 carvediloL [Coreg] 3.125 mg PO BID-W/MEALS tab 10/23/21 Allergies Allergy/AdvReac Type Severity Reaction Status Date / Time No Known Allergies Allergy Verified 11/05/21 22:29 Review of Systems ROS Other: All systems not noted in ROS Statement are negative. <Guille Ramirez - Last Filed: 11/05/21 22:38> ROS Other: All systems not noted in ROS Statement are negative. <Slim Rudolph - Last Filed: 11/06/21 05:03> ROS Statement: Those systems with pertinent positive or pertinent negative responses have been documented in the HPI. Past Medical History Past Medical History: Diabetes Mellitus, Eye Disorder, Hyperlipidemia, Hypertension, Prostate Disorder, Vascular Disorder Additional Past Medical History / Comment(s): Glaucoma. Dysphagia. BPH. Dryness legs. History of Any Multi-Drug Resistant Organisms: None Reported Past Surgical History: Adenoidectomy, Tonsillectomy Additional Past Surgical History / Comment(s): COLONOSCOPY. BILAT CATARACTS. PTBA Lt leg; PTBA w/ stent Rt leg. Past Anesthesia/Blood Transfusion Reactions: No Reported Reaction Past Psychological History: No Psychological Hx Reported Smoking Status: Former smoker Past Alcohol Use History: None Reported Past Drug Use History: None Reported - Past Family History Mother Family Medical History: Cancer Father Family Medical History: CVA/TIA <Guille Ramirez - Last Filed: 11/05/21 22:38> General Exam General appearance: alert, in no apparent distress Head exam: Present: atraumatic, normocephalic, normal inspection Eye exam: Present: normal appearance, PERRL, EOMI. Absent: scleral icterus, conjunctival injection, periorbital swelling ENT exam: Present: normal exam, mucous membranes moist Neck exam: Present: normal inspection. Absent: tenderness, meningismus, lymphadenopathy Respiratory exam: Present: normal lung sounds bilaterally. Absent: respiratory distress, wheezes, rales, rhonchi, stridor Cardiovascular Exam: Present: regular rate, normal rhythm, normal heart sounds. Absent: systolic murmur, diastolic murmur, rubs, gallop, clicks GI/Abdominal exam: Present: soft, normal bowel sounds. Absent: distended, tenderness, guarding, rebound, rigid Extremities exam: Present: normal inspection, full ROM, normal capillary refill. Absent: tenderness, pedal edema, joint swelling, calf tenderness Back exam: Present: normal inspection Neurological exam: Present: alert, oriented X3, CN II-XII intact Psychiatric exam: Present: normal affect, normal mood Skin exam: Present: warm, dry, intact, normal color. Absent: rash <Slim Rudolph - Last Filed: 11/06/21 05:03> Course <Slim Rudolph - Last Filed: 11/06/21 05:03> Vital Signs 11/05/21 11/06/21 20:41 02:29 Temperature 98.5 F Pulse Rate 88 74 Respiratory 15 14 Rate Blood Pressure 114/67 122/71 O2 Sat by Pulse 98 98 Oximetry - Reevaluation(s) Reevaluation #1: 11/06/21 05:02 Medical record is reviewed (Slim Rudolph) Reevaluation #2: 11/06/21 05:02 Medical clear for psychiatric evaluation (Slim Rudolph) Medical Decision Making - Lab Data Result diagrams: 11/05/21 21:34 11/05/21 21:34 <Guille Ramirez - Last Filed: 11/05/21 22:38> - Lab Data Result diagrams: 11/05/21 21:34 11/05/21 21:34 <Slim Rudolph - Last Filed: 11/06/21 05:03> - Medical Decision Making 81 male seen and evaluated psychiatry, patient is stable for discharge home (Slim Rudolph) - Lab Data Lab Results 11/05/21 11/05/21 Range/Units 21:34 21:34 WBC 9.0 (3.8-10.6) k/uL RBC 4.81 (4.30-5.90) m/uL Hgb 13.7 (13.0-17.5) gm/dL Hct 41.7 (39.0-53.0) % MCV 86.6 (80.0-100.0) fL MCH 28.4 (25.0-35.0) pg MCHC 32.8 (31.0-37.0) g/dL RDW 14.3 (11.5-15.5) % Plt Count 312 (150-450) k/uL MPV 7.3 Neutrophils % 76 % Lymphocytes % 13 % Monocytes % 7 % Eosinophils % 2 % Basophils % 0 % Neutrophils # 6.8 (1.3-7.7) k/uL Lymphocytes # 1.1 (1.0-4.8) k/uL Monocytes # 0.6 (0-1.0) k/uL Eosinophils # 0.2 (0-0.7) k/uL Basophils # 0.0 (0-0.2) k/uL Sodium 135 L (137-145) mmol/L Potassium 4.0 (3.5-5.1) mmol/L Chloride 98 (98-107) mmol/L Carbon Dioxide 22 (22-30) mmol/L Anion Gap 15 mmol/L BUN 33 H (9-20) mg/dL Creatinine 1.49 H (0.66-1.25) mg/dL Est GFR (CKD-EPI)AfAm 50 (>60 ml/min/1.73 sqM) Est GFR (CKD-EPI)NonAf 44 (>60 ml/min/1.73 sqM) Glucose 209 H (74-99) mg/dL Calcium 9.5 (8.4-10.2) mg/dL Disposition <Guille Ramirez - Last Filed: 11/05/21 22:38> Is patient prescribed a controlled substance at d/c from ED?: No Time of Disposition: 05:00 <Slim Rudolph - Last Filed: 11/06/21 05:03> Clinical Impression: Aggressive behavior, Outbursts of anger Disposition: HOME SELF-CARE Condition: Fair Instructions (If sedation given, give patient instructions): Mood Disorders (ED) Referrals: Melvina Chew MD [Primary Care Provider] - 1-2 days
[2021-11-05 21:49] LABS: Basophils % (A) 0 %; Eosinophils # (A) 0.2 k/uL (0-0.7); Eosinophils % (A) 2 %; HCT 41.7 % (39.0-53.0); HGB 13.7 gm/dL (13.0-17.5); Lymphocytes # (A) 1.1 k/uL (1.0-4.8); Lymphocytes % (A) 13 %; MCH 28.4 pg (25.0-35.0); MCHC 32.8 g/dL (31.0-37.0); MCV 86.6 fL (80.0-100.0); Mean Platelet Volume 7.3; Monocytes # (A) 0.6 k/uL (0-1.0); Monocytes % (A) 7 %; Neutrophils # (A) 6.8 k/uL (1.3-7.7); Neutrophils % (A) 76 %; Platelet Count 312 k/uL (150-450); RBC 4.81 m/uL (4.30-5.90); RDW 14.3 % (11.5-15.5)
[2021-11-05 22:11] LABS: Calcium 9.5 mg/dL (8.4-10.2)
--- NOTE | 2021-11-05 23:01 | CT ---
EXAMINATION TYPE: CT brain wo con DATE OF EXAM: 11/05/2021 COMPARISON: 10/16/2021 HISTORY: AMS CT DLP: 1070.4 mGycm Automated exposure control for dose reduction was used. Images of the brain obtained with no contrast. There is cerebral cortical atrophy. There is no mass effect nor midline shift. No sign of intracrania l hemorrhage. The calvarium is intact. Skull base is intact. There is normal aeration of the mastoid sinuses. IMPRESSION: Cerebral atrophy. No acute intracranial abnormality. No change.
[2021-11-06 09:28] VITALS: BP 129/72; PULSE 81; RESP 18
== END 2021-11-06 10:00 | disposition home or self-care (01) ==
LOC: EC 20:20
DX: R46.89 Other symptoms and signs involving appearance and behavior (principal); R45.4 Irritability and anger; R41.82 Altered mental status, unspecified; E11.9 Type 2 diabetes mellitus without complications; E78.5 Hyperlipidemia, unspecified; I10 Essential (primary) hypertension; Z79.899 Other long term (current) drug therapy; Z79.84 Long term (current) use of oral hypoglycemic drugs; Z87.891 Personal history of nicotine dependence
CPT/HCPCS: 36415; 70450; 80048; 85025; 99285

== ENCOUNTER 2021-11-06 22:56 | Emergency (ER) | payer MEDICARE ==
[2021-11-06 23:14] VITALS: BP 121/65; PULSE 74; RESP 15; TEMP 98
[2021-11-06 23:49] LABS: Glucose,Whole Blood 215 mg/dL (70-110)
--- NOTE | 2021-11-07 00:03 | ED ---
General Adult HPI - General Chief complaint: Psychiatric Symptoms Stated complaint: Combative Time Seen by Provider: 11/06/21 23:00 Source: EMS, RN notes reviewed, old records reviewed Mode of arrival: EMS - History of Present Illness Initial comments: Patient is an 81-year-old male who presents emergency department for uncooperative behavior. Presents from [facility]. Allegedly has been having aggressive behavior towards staff, took down on the ground and refuses to get up. This is the fourth time he has been seen here today. It is all for the same symptoms. He was already cleared by EPS. His overall poor historian. Probably some underlying dementia is present. Nursing staff remembers him from the previous visits. He has had his normal baseline. He has not had any distress. He is cooperative now. Has no acute complaints. Workup was obtained within the last 24 hours as well which revealed no remarkable findings. CT brain was also obtained which showed no acute intracranial process. He was medically cleared. EPS also cleared him for discharge back to his facility. He returns today for identical symptoms. Patient is no acute complaints at this time. Is cooperative. He is a poor historian overall. No acute complaints. - Related Data Home Medications Medication Instructions Recorded Confirmed Simvastatin [Zocor] 20 mg PO DAILY 07/16/17 11/05/21 Latanoprost/Pf [Latanoprost 0.005% 1 drop BOTH EYES HS 05/01/21 11/05/21 Eye Drop] Albuterol Inhaler [Ventolin Hfa 1 - 2 puff INHALATION RT-Q4H PRN 10/16/21 11/05/21 Inhaler] ALPRAZolam [Xanax] 0.25 mg PO BID PRN 11/05/21 11/05/21 Ativan Gel 0.5mg/0.5ml 0.5 mg TOPICAL BID PRN 11/05/21 11/05/21 Omeprazole 40 mg PO DAILY 11/05/21 11/05/21 metFORMIN HCL [Glucophage] 500 mg PO BID 11/05/21 11/05/21 Previous Rx's Medication Instructions Recorded Clopidogrel [Plavix] 75 mg PO DAILY #90 tab 04/20/19 Losartan [Cozaar] 100 mg PO DAILY tab 10/23/21 amLODIPine [Norvasc] 5 mg PO DAILY tab 10/23/21 carvediloL [Coreg] 3.125 mg PO BID-W/MEALS tab 10/23/21 Allergies Allergy/AdvReac Type Severity Reaction Status Date / Time No Known Allergies Allergy Verified 11/05/21 22:29 Review of Systems ROS Statement: Those systems with pertinent positive or pertinent negative responses have been documented in the HPI. ROS Other: All systems not noted in ROS Statement are negative. Past Medical History Past Medical History: Diabetes Mellitus, Eye Disorder, Hyperlipidemia, Hypertension, Prostate Disorder, Vascular Disorder Additional Past Medical History / Comment(s): Glaucoma. Dysphagia. BPH. Dryness legs. History of Any Multi-Drug Resistant Organisms: None Reported Past Surgical History: Adenoidectomy, Tonsillectomy Additional Past Surgical History / Comment(s): COLONOSCOPY. BILAT CATARACTS. PTBA Lt leg; PTBA w/ stent Rt leg. Past Anesthesia/Blood Transfusion Reactions: No Reported Reaction Past Psychological History: No Psychological Hx Reported Smoking Status: Former smoker Past Alcohol Use History: None Reported Past Drug Use History: None Reported - Past Family History Mother Family Medical History: Cancer Father Family Medical History: CVA/TIA General Exam - General Exam Comments Initial Comments: General: Appears in no acute distress. HEAD: Normal with no signs of head trauma. EYES: PERRLA, EOMI, conjunctiva normal, no discharge. ENT: Hearing grossly intact, normal oropharynx. Moist mucous members. RESPIRATORY: Clear breath sounds bilaterally. No wheezes, rales, or rhonchi. C/V: Regular rate and rhythm. S1 and S2 auscultated, no edema, peripheral pulses 2+ and intact throughout ABD: Abd is soft, nontender, nondistended EXT: Normal range of motion, no obvious deformity SKIN: No rashes or lesions observed on exposed skin. NEURO: Alert and oriented 3. Able to move all 4 extremities without difficulty.NIH is 0. GCS is 15. Course Vital Signs 11/06/21 23:08 Temperature 98 F Pulse Rate 74 Respiratory 15 Rate Blood Pressure 121/65 O2 Sat by Pulse 97 Oximetry Medical Decision Making - Medical Decision Making Based on the patient's presentation and physical exam, he really he turns [facility] [employer] department after being sent back for combative behavior. Likely has an underlying delirium versus dementia, however has been medically cleared and could by EPS in the last 24 hours multiple times. There is no change in behavior. Currently cooperative. No acute complaints. No acute findings on exam. Laboratory studies were obtained yesterday as well as CT brain which were unremarkable. Vital signs are within normal limits. I do not believe the patient requires admission to the hospital. He will be discharged back to his facility at this time. She'll be discharged back in good condition. He appears to be at his normal baseline.POC care blood sugar was obtained and was within normal limits for the patient. - Lab Data Lab Results 11/06/21 Range/Units 23:44 POC Glucose (mg/dL) 215 H (70-110) mg/dL POC Glu Plant General Manager ID Shonna Colindres Disposition Clinical Impression: Behavior concern Disposition: HOME SELF-CARE Condition: Good Is patient prescribed a controlled substance at d/c from ED?: No Referrals: Melvina Chew MD [Primary Care Provider] - 1-2 days Time of Disposition: 00:02
== END 2021-11-07 00:45 | disposition home or self-care (01) ==
LOC: EC 22:56
DX: F98.9 Unspecified behavioral and emotional disorders with onset usually occurring in childhood and adolescence (principal); E11.9 Type 2 diabetes mellitus without complications; E78.5 Hyperlipidemia, unspecified; I10 Essential (primary) hypertension; Z87.891 Personal history of nicotine dependence
CPT/HCPCS: 36415; 99284

== ENCOUNTER 2021-11-12 18:51 | Emergency (ER) | payer MEDICARE ==
[2021-11-12 18:57] VITALS: TEMP 97.9
[2021-11-12] MEDS ORDERED: SODIUM CHLORIDE 0.9% 1,000 ML IV STA ×2 (19:02→20:33)
[2021-11-12 19:15] LABS: Basophils % (A) 0 %; Eosinophils # (A) 0.2 k/uL (0-0.7); Eosinophils % (A) 3 %; HCT 38.6 % (39.0-53.0); HGB 12.7 gm/dL (13.0-17.5); Lymphocytes # (A) 0.8 k/uL (1.0-4.8); Lymphocytes % (A) 10 %; MCH 28.8 pg (25.0-35.0); MCV 87.4 fL (80.0-100.0); Mean Platelet Volume 7.2; Monocytes # (A) 0.6 k/uL (0-1.0); Monocytes % (A) 7 %; Neutrophils # (A) 6.4 k/uL (1.3-7.7); Neutrophils % (A) 76 %; Platelet Count 226 k/uL (150-450); RBC 4.42 m/uL (4.30-5.90); RDW 14.9 % (11.5-15.5); WBC 8.4 k/uL (3.8-10.6)
--- NOTE | 2021-11-12 19:17 | ED ---
General Adult HPI - General Chief complaint: Altered Mental Status Stated complaint: hypotension Time Seen by Provider: 11/12/21 18:58 Source: patient, EMS, RN notes reviewed, old records reviewed Mode of arrival: EMS Limitations: no limitations - History of Present Illness Initial comments: Patient is an 81-year-old male who is familiar to ER staff here presents emergency Department from his nursing facility over concern for hypotension. Patient also had an episode of unresponsiveness per staff and is wheelchair. Is been sent here multiple times for behavioral issues. Was found to be hypotensive by EMS and responded to 500 mL of IV fluids. BP is back to wnl with minimal fluid administration. Patient is back to his normal baseline. His no ac neli complaints at this time. Denies fevers, chills, sick contacts. Denies any abdominal pain, nausea, vomiting. Does endorse chronic lower extremity abrasions which he states are from crawling on the ground. Denies any weakness. He is alert and oriented at his baseline. His no other acute complaints at this time. Presents over concern for the hypotensive episode and possible syncopal episode at his facility. He denies this happening. Patient does have a history of combativeness. - Related Data Home Medications Medication Instructions Recorded Confirmed Simvastatin [Zocor] 20 mg PO DAILY 07/16/17 11/05/21 Latanoprost/Pf [Latanoprost 0.005% 1 drop BOTH EYES HS 05/01/21 11/05/21 Eye Drop] Albuterol Inhaler [Ventolin Hfa 1 - 2 puff INHALATION RT-Q4H PRN 10/16/21 11/05/21 Inhaler] ALPRAZolam [Xanax] 0.25 mg PO BID PRN 11/05/21 11/05/21 Ativan Gel 0.5mg/0.5ml 0.5 mg TOPICAL BID PRN 11/05/21 11/05/21 Omeprazole 40 mg PO DAILY 11/05/21 11/05/21 metFORMIN HCL [Glucophage] 500 mg PO BID 11/05/21 11/05/21 Previous Rx's Medication Instructions Recorded Clopidogrel [Plavix] 75 mg PO DAILY #90 tab 04/20/19 Losartan [Cozaar] 100 mg PO DAILY tab 10/23/21 amLODIPine [Norvasc] 5 mg PO DAILY tab 10/23/21 carvediloL [Coreg] 3.125 mg PO BID-W/MEALS tab 10/23/21 Azithromycin [Zithromax] 250 mg PO DAILY 4 Days #4 tab 11/12/21 Allergies Allergy/AdvReac Type Severity Reaction Status Date / Time No Known Allergies Allergy Verified 11/05/21 22:29 Review of Systems ROS Statement: Those systems with pertinent positive or pertinent negative responses have been documented in the HPI. Review of Systems: CONST: Denies fever EYES: Denies blurry vision ENT: Denies nasal congestion C/V: Denies Chest pain RESP: Denies shortness of breath GI: Denies abdominal pain : Denies dysuria SKIN: Denies rash. MSK: Denies joint pain. NEURO: Denies headache ROS Other: All systems not noted in ROS Statement are negative. Past Medical History Past Medical History: Diabetes Mellitus, Eye Disorder, Hyperlipidemia, Hypertension, Prostate Disorder, Vascular Disorder Additional Past Medical History / Comment(s): Glaucoma. Dysphagia. BPH. Dryness legs. History of Any Multi-Drug Resistant Organisms: None Reported Past Surgical History: Adenoidectomy, Tonsillectomy Additional Past Surgical History / Comment(s): COLONOSCOPY. BILAT CATARACTS. PTBA Lt leg; PTBA w/ stent Rt leg. Past Anesthesia/Blood Transfusion Reactions: No Reported Reaction Past Psychological History: No Psychological Hx Reported Smoking Status: Former smoker Past Alcohol Use History: None Reported Past Drug Use History: None Reported - Past Family History Mother Family Medical History: Cancer Father Family Medical History: CVA/TIA General Exam - General Exam Comments Initial Comments: General: Appears in no acute distress. HEAD: Normal with no signs of head trauma. EYES: PERRLA, EOMI, conjunctiva normal, no discharge. Pupils are 3 mm and equal bilaterally. ENT: Hearing grossly intact, normal oropharynx. Dry mucous membranes. RESPIRATORY: Clear breath sounds bilaterally. No wheezes, rales, or rhonchi. C/V: Regular rate and rhythm. S1 and S2 auscultated, no edema, peripheral pulses 2+ and intact throughout ABD: Abd is soft, nontender, nondistended EXT: Normal range of motion, no obvious deformity SKIN: Abrasions located over bilateral lower extremities. Bruising over the right anterior ribs. Appears old. NEURO: Alert and oriented 3. No focal deficits. Limitations: no limitations Course Vital Signs 11/12/21 11/12/21 11/12/21 18:54 19:19 22:46 Temperature 97.9 F Pulse Rate 77 77 79 Respiratory 18 15 15 Rate Blood Pressure 95/60 105/65 133/81 O2 Sat by Pulse 99 97 98 Oximetry Medical Decision Making - Medical Decision Making Based on the patient's presentation and physical exam, I'm concerned for dehydration the patient. Cannot rule out other etiology at this time, such as infection or syncopal episode. We'll obtain broad workup as well as CT brain due to the concern for unresponsiveness episode earlier. He was in agreement this plan. Currently appears baseline. Blood pressures responding to IV fluids. We will continue with IV fluid hydration. He was in agreement this pl an. EKG shows no signs of acute ischemia.Patient's chest x-ray showed a possible developing pneumonia in the right lower lobe. Tib-fib x-rays were within normal limits. CT head and cervical spine show no acute process. Laboratory studies were remarkable for a mild normocytic anemia with a hemoglobin 12.7. Patient had an elevated BUN/creatinine in the setting of CK D appearing to be at his bas alonzo. Lactic acid is elevated 3.4 and likely secondary to dehydration, urinalysis is within normal limits. Covid is negative. On reevaluation, patient is resting comfortably in his bed. He would like to leave. It is normal baseline. Blood pressure has improved following 2 L IV fluids. I did discuss with him the results of his laboratory studies and imaging. We'll treat him for the acquired pneumonia, however repeat a lactic acid prior to discharge. He was in agreement with this plan. He states he has not been eating or drinking at his facility and I strongly recommended that he do this so that he can avoid another possible syncopal episode and transferred to the emergency department. He was in agreement with this plan. Chest x-ray does show possible pneumonia versus pneumonitis versus aspiration. He is asymptomatic in terms of upper respiratory infection. Over will empiric ally place him on antibiotics at this time due to his age. He was in agreement this plan. Repeat lactic acid was within normal limits. Vital signs remained within normal limits. I believe it is safer to be discharged home at this time. He was in agreement this plan. Initial lactic acidosis is likely secondary to dehydration, as he self admits to not drinking water much over the last week or so. - Lab Data Result diagrams: 11/12/21 18:53 11/12/21 18:53 Lab Results 11/12/21 11/12/21 11/12/21 Range/Units 18:53 18:53 18:53 WBC 8.4 (3.8-10.6) k/uL RBC 4.42 (4.30-5.90) m/uL Hgb 12.7 L (13.0-17.5) gm/dL Hct 38.6 L (39.0-53.0) % MCV 87.4 (80.0-100.0) fL MCH 28.8 (25.0-35.0) pg MCHC 33.0 (31.0-37.0) g/dL RDW 14.9 (11.5-15.5) % Plt Count 226 (150-450) k/uL MPV 7.2 Neutrophils % 76 % Lymphocytes % 10 % Monocytes % 7 % Eosinophils % 3 % Basophils % 0 % Neutrophils # 6.4 (1.3-7.7) k/uL Lymphocytes # 0.8 L (1.0-4.8) k/uL Monocytes # 0.6 (0-1.0) k/uL Eosinophils # 0.2 (0-0.7) k/uL Basophils # 0.0 (0-0.2) k/uL PT 11.6 (9.0-12.0) sec INR 1.1 (<1.2) APTT 18.3 L (22.0-30.0) sec Sodium 136 L (137-145) mmol/L Potassium 4.1 (3.5-5.1) mmol/L Chloride 101 (98-107) mmol/L Carbon Dioxide 23 (22-30) mmol/L Anion Gap 12 mmol/L BUN 26 H (9-20) mg/dL Creatinine 1.38 H (0.66-1.25) mg/dL Est GFR (CKD-EPI)AfAm 55 (>60 ml/min/1.73 sqM) Est GFR (CKD-EPI)NonAf 48 (>60 ml/min/1.73 sqM) Glucose 212 H (74-99) mg/dL Lactic Ac Sepsis Rflx Plasma Lactic Acid Edgar (0.7-2.0) mmol/L Calcium 9.0 (8.4-10.2) mg/dL Total Bilirubin 1.5 H (0.2-1.3) mg/dL AST 17 (17-59) U/L ALT 13 (4-49) U/L Alkaline Phosphatase 103 (38-126) U/L Total Protein 6.2 L (6.3-8.2) g/dL Albumin 3.8 (3.5-5.0) g/dL Amylase 39 (30-110) U/L Lipase 228 (23-300) U/L Urine Color Urine Appearance (Clear) Urine pH (5.0-8.0) Ur Specific [place] (1.001-1.035) Urine Protein (Negative) Urine Glucose (UA) (Negative) Urine Ketones (Negative) Urine Blood (Negative) Urine Nitrite (Negative) Urine Bilirubin (Negative) Urine Urobilinogen (<2.0) mg/dL Ur Leukocyte Esterase (Negative) Coronavirus (PCR) (Not Detectd) 11/12/21 11/12/21 11/12/21 Range/Units 18:53 19:29 19:38 WBC (3.8-10.6) k/uL RBC (4.30-5.90) m/uL Hgb (13.0-17.5) gm/dL Hct (39.0-53.0) % MCV (80.0-100.0) fL MCH (25.0-35.0) pg MCHC (31.0-37.0) g/dL RDW (11.5-15.5) % Plt Count (150-450) k/uL MPV Neutrophils % % Lymphocytes % % Monocytes % % Eosinophils % % Basophils % % Neutrophils # (1.3-7.7) k/uL Lymphocytes # (1.0-4.8) k/uL Monocytes # (0-1.0) k/uL Eosinophils # (0-0.7) k/uL Basophils # (0-0.2) k/uL PT (9.0-12.0) sec INR (<1.2) APTT (22.0-30.0) sec Sodium (137-145) mmol/L Potassium (3.5-5.1) mmol/L Chloride (98-107) mmol/L Carbon Dioxide (22-30) mmol/L Anion Gap mmol/L BUN (9-20) mg/dL Creatinine (0.66-1.25) mg/dL Est GFR (CKD-EPI)AfAm (>60 ml/min/1.73 sqM) Est GFR (CKD-EPI)NonAf (>60 ml/min/1.73 sqM) Glucose (74-99) mg/dL Lactic Ac Sepsis Rflx Y Plasma Lactic Acid Edgar 3.4 H* (0.7-2.0) mmol/L Calcium (8.4-10.2) mg/dL Total Bilirubin (0.2-1.3) mg/dL AST (17-59) U/L ALT (4-49) U/L Alkaline Phosphatase (38-126) U/L Total Protein (6.3-8.2) g/dL Albumin (3.5-5.0) g/dL Amylase (30-110) U/L Lipase (23-300) U/L Urine Color Urine Appearance (Clear) Urine pH (5.0-8.0) Ur Specific [place] (1.001-1.035) Urine Protein (Negative) Urine Glucose (UA) (Negative) Urine Ketones (Negative) Urine Blood (Negative) Urine Nitrite (Negative) Urine Bilirubin (Negative) Urine Urobilinogen (<2.0) mg/dL Ur Leukocyte Esterase (Negative) Coronavirus (PCR) Not Detected (Not Detectd) 11/12/21 11/12/21 Range/Units 21:02 22:07 WBC (3.8-10.6) k/uL RBC (4.30-5.90) m/uL Hgb (13.0-17.5) gm/dL Hct (39.0-53.0) % MCV (80.0-100.0) fL MCH (25.0-35.0) pg MCHC (31.0-37.0) g/dL RDW (11.5-15.5) % Plt Count (150-450) k/uL MPV Neutrophils % % Lymphocytes % % Monocytes % % Eosinophils % % Basophils % % Neutrophils # (1.3-7.7) k/uL Lymphocytes # (1.0-4.8) k/uL Monocytes # (0-1.0) k/uL Eosinophils # (0-0.7) k/uL Basophils # (0-0.2) k/uL PT (9.0-12.0) sec INR (<1.2) APTT (22.0-30.0) sec Sodium (137-145) mmol/L Potassium (3.5-5.1) mmol/L Chloride (98-107) mmol/L Carbon Dioxide (22-30) mmol/L Anion Gap mmol/L BUN (9-20) mg/dL Creatinine (0.66-1.25) mg/dL Est GFR (CKD-EPI)AfAm (>60 ml/min/1.73 sqM) Est GFR (CKD-EPI)NonAf (>60 ml/min/1.73 sqM) Glucose (74-99) mg/dL Lactic Ac Sepsis Rflx Plasma Lactic Acid Edgar 1.5 (0.7-2.0) mmol/L Calcium (8.4-10.2) mg/dL Total Bilirubin (0.2-1.3) mg/dL AST (17-59) U/L ALT (4-49) U/L Alkaline Phosphatase (38-126) U/L Total Protein (6.3-8.2) g/dL Albumin (3.5-5.0) g/dL Amylase (30-110) U/L Lipase (23-300) U/L Urine Color Yellow Urine Appearance Clear (Clear) Urine pH 5.5 (5.0-8.0) Ur Specific [place] 1.015 (1.001-1.035) Urine Protein Trace H (Negative) Urine Glucose (UA) 1+ H (Negative) Urine Ketones Negative (Negative) Urine Blood Negative (Negative) Urine Nitrite Negative (Negative) Urine Bilirubin Negative (Negative) Urine Urobilinogen <2.0 (<2.0) mg/dL Ur Leukocyte Esterase Negative (Negative) Coronavirus (PCR) (Not Detectd) - EKG Data -: EKG Interpreted by Me EKG Comments: 12-lead Electrocardiogram Interpretation Note EKG was reviewed and interpreted by myself. 12-lead ECG performed at 1853 is interpreted by me as revealing normal sinus rhythm with first-degree AV block at a rate of at 70 beats per minute. [place] is normal. SD interval is 233 ms, QRS duration is 89 ms, QTc is 385 ms. There were no ST or T wave abnormalities to suggest myocardial ischemia or injury. R wave progression across the precordium was satisfactory. By my interpretation this EKG is non-diagnostic for acute ischemia. Disposition Clinical Impression: Pneumonia, Dehydration Disposition: HOME SELF-CARE Condition: Good Instructions (If sedation given, give patient instructions): Dehydration (ED) Prescriptions: Azithromycin [Zithromax] 250 mg PO DAILY 4 Days #4 tab Is patient prescribed a controlled substance at d/c from ED?: No Referrals: Kalin Zimmer DO [Primary Care Provider] - 1-2 days Time of Disposition: 22:45
[2021-11-12 19:20] VITALS: RESP 15
[2021-11-12 19:23] LABS: Albumin 3.8 g/dL (3.5-5.0); Potassium 4.1 mmol/L (3.5-5.1); Total Bilirubin 1.5 mg/dL (0.2-1.3); Total Protein 6.2 g/dL (6.3-8.2)
[2021-11-12 19:56] LABS: INR 1.1 (<1.2); Prothrombin Time 11.6 sec (9.0-12.0)
[2021-11-12 20:01] LABS: Partial Thromboplastin Time 18.3 sec (22.0-30.0)
--- NOTE | 2021-11-12 21:16 | XR ---
EXAM: XR Chest, 2 Views CLINICAL HISTORY: abdominal pain TECHNIQUE: Frontal and lateral views of the chest. COMPARISON: No relevant prior studies available. FINDINGS: Lungs: Right lower lobe patchy opacities noted. The lungs are otherwise clear. The pulmonary vasculature is unremarkable. Pleural space: Unremarkable. No pneumothorax. No large pleural effusion. Heart: Unremarkable. No cardiomegaly. Mediastinum: Unremarkable. No significant abnormality identified. The trachea is midline. Bones/joints: Hypertrophic changes involving the acromioclavicular joints. The osseous structures are unremarkable. IMPRESSION: Right lower lobe patchy opacities noted. Differential considerations include aspiration or pneumonia.
--- NOTE | 2021-11-12 21:18 | XR ---
EXAM: XR Bilateral Tibias and Fibulas, 2 Views CLINICAL HISTORY: ITS.REASON XR Reason: pain TECHNIQUE: Frontal and lateral views of the bilateral tibias and fibulas. COMPARISON: No relevant prior studies available. FINDINGS: Bones/joints: Unremarkable. No acute fracture. No dislocation. Soft tissues: Regional arterial calcification is noted. No significant soft tissue abnormality identified. The soft tissues are somewhat gracile in appearance. No radiopaque foreign body or subcutaneous emphysema. IMPRESSION: No acute findings in the bilateral tibia and fibulas or surrounding soft tissues.
[2021-11-12 21:36] LABS: Appearance,Urine Clear (Clear); Bilirubin,Urine Negative (Negative); Blood,Urine Negative (Negative); Color,Urine Yellow; Glucose,Urine (UA) 1+ (Negative); Ketones,Urine Negative (Negative); Leukocyte Esterase,Urine Negative (Negative); Nitrite,Urine Negative (Negative); PH, Urine 5.5 (5.0-8.0); Protein,Urine Trace (Negative); Specific Gravity,Urine 1.015 (1.001-1.035); Urobilinogen,Urine <2.0 mg/dL (<2.0)
--- NOTE | 2021-11-12 21:37 | CT ---
EXAM: CT Head Without Intravenous Contrast CLINICAL HISTORY: ITS.REASON CT Reason: ams TECHNIQUE: Axial computed tomography images of the head/brain without intravenous contrast. CTDI is 57.2 mGy and DLP is 1381.3 mGy-cm. This CT exam was performed using one or more of the following dose reduction techniques: automated exposure control, adjustment of the mA and/or kV according to patient size, and/or use of iterative reconstruction technique. COMPARISON: No relevant prior studies available. FINDINGS: Brain: Mild brain volume loss and mild chronic ischemic changes. No hemorrhage. Ventricles: Unremarkable. No ventriculomegaly. Bones/joints: Unremarkable. No acute fracture. Soft tissues: Unremarkable. Sinuses: Unremarkable as visualized. No acute sinusitis. Mastoid air cells: Unremarkable as visualized. No mastoid effusion. IMPRESSION: No acute findings in the head/brain.
[2021-11-12] MEDS ORDERED: AZITHROMYCIN 500 MG TAB PO STA (22:45)
[2021-11-12 22:46] VITALS: BP 133/81; PULSE 79
== END 2021-11-13 00:02 | disposition home or self-care (01) ==
LOC: EC 18:51
DX: J18.9 Pneumonia, unspecified organism (principal); E86.0 Dehydration; E11.9 Type 2 diabetes mellitus without complications; E78.5 Hyperlipidemia, unspecified; Z87.891 Personal history of nicotine dependence; Z20.822 Contact with and (suspected) exposure to COVID-19
CPT/HCPCS: 36415; 70450; 71046; 72125; 80053; 81003; 82150; 83605; 83690; 85025; 85610; 85730; 87635; 93005; 96360; 96361; 99285

== ENCOUNTER 2021-12-26 10:39 | Emergency (ER) | payer MEDICARE ==
[2021-12-26] MEDS ORDERED: SODIUM CHLORIDE 0.9% 500 ML 500 ML IV STA (10:47)
[2021-12-26] MEDS ORDERED: SODIUM CHLORIDE 0.9% 1,000 ML IV STA (10:47)
[2021-12-26 11:03] LABS: Basophils # (A) 0.1 k/uL (0-0.2); Basophils % (A) 1 %; Eosinophils # (A) 0.2 k/uL (0-0.7); Eosinophils % (A) 3 %; HCT 39.9 % (39.0-53.0); HGB 13.4 gm/dL (13.0-17.5); Hypochromasia Slight; Lymphocytes # (A) 1.2 k/uL (1.0-4.8); Lymphocytes % (A) 17 %; MCH 28.6 pg (25.0-35.0); MCHC 33.5 g/dL (31.0-37.0); MCV 85.3 fL (80.0-100.0); Mean Platelet Volume 7.1; Monocytes # (A) 0.6 k/uL (0-1.0); Monocytes % (A) 8 %; Neutrophils # (A) 4.8 k/uL (1.3-7.7); Neutrophils % (A) 68 %; Platelet Count 357 k/uL (150-450); RBC 4.68 m/uL (4.30-5.90); RDW 14.7 % (11.5-15.5)
[2021-12-26 11:18] LABS: ALT 13 U/L (4-49); AST 13 U/L (17-59); African American GFR (CKD) >90 (>60 ml/min/1.73 sqM); Albumin 3.9 g/dL (3.5-5.0); Alkaline Phosphatase 76 U/L (38-126); Anion Gap 12 mmol/L; Blood Urea Nitrogen 17 mg/dL (9-20); Calcium 9.2 mg/dL (8.4-10.2); Carbon Dioxide 21 mmol/L (22-30); Chloride 99 mmol/L (98-107); Creatine Kinase 38 U/L (55-170); Glucose 214 mg/dL (74-99); Magnesium 1.8 mg/dL (1.6-2.3); Non-African American GFR(CKD) 84 (>60 ml/min/1.73 sqM); Potassium 4.7 mmol/L (3.5-5.1); Sodium 132 mmol/L (137-145); Total Protein 6.5 g/dL (6.3-8.2)
[2021-12-26 11:22] LABS: Prothrombin Time 10.7 sec (9.0-12.0)
--- NOTE | 2021-12-26 11:44 | XR ---
EXAMINATION TYPE: XR chest 2V DATE OF EXAM: 12/26/2021 COMPARISON: Chest x-ray 11/12/2021 HISTORY: Syncope TECHNIQUE: Frontal and lateral views of the chest are obtained. FINDINGS: There is no focal air space opacity, pleural effusion, or pneumothorax seen. The cardiac silhouette size is within normal limits. There are overlying leads. The osseous structures are intac t. IMPRESSION: No acute cardiopulmonary process.
--- NOTE | 2021-12-26 11:52 | ED ---
Dizziness HPI - General Chief Complaint: Syncope Stated Complaint: syncope Time Seen by Provider: 12/26/21 10:45 Source: patient, EMS, RN notes reviewed Mode of arrival: EMS Limitations: no limitations - History of Present Illness Initial Comments: 81-year-old male presents from the doctor's office apparently passed out while sitting in a chair. Unclear how long he was asked the patient has no recall of this. He presents awake and alert. He denies any pain. He is a poor historian at this time however. MD Complaint: dizziness, lightheadedness - Related Data Home Medications Medication Instructions Recorded Confirmed Simvastatin [Zocor] 20 mg PO HS 07/16/17 12/26/21 Latanoprost/Pf [Latanoprost 0.005% 1 drop BOTH EYES HS 05/01/21 12/26/21 Eye Drop] Ativan Gel 0.5mg/0.5ml 2 mg TRANSDERM TID@0500,1300,2100 11/05/21 12/26/21 metFORMIN HCL [Glucophage] 500 mg PO BID 11/05/21 12/26/21 Famotidine [Pepcid] 20 mg PO HS 12/26/21 12/26/21 Losartan Potassium 100 mg PO DAILY 12/26/21 12/26/21 carvediloL [Coreg] 3.125 mg PO BID 12/26/21 12/26/21 risperiDONE ODT [RisperDAL M-TAB] 1 mg PO HS 12/26/21 12/26/21 Previous Rx's Medication Instructions Recorded Clopidogrel [Plavix] 75 mg PO DAILY #90 tab 04/20/19 amLODIPine [Norvasc] 5 mg PO DAILY tab 10/23/21 Allergies Allergy/AdvReac Type Severity Reaction Status Date / Time No Known Allergies Allergy Verified 12/26/21 13:52 Review of Systems ROS Statement: Those systems with pertinent positive or pertinent negative responses have been documented in the HPI. ROS Other: All systems not noted in ROS Statement are negative. Past Medical History Past Medical History: Diabetes Mellitus, Eye Disorder, Hyperlipidemia, Hypertension, Prostate Disorder, Vascular Disorder Additional Past Medical History / Comment(s): Glaucoma. Dysphagia. BPH. Dryness legs. History of Any Multi-Drug Resistant Organisms: None Reported Past Surgical History: Adenoidectomy, Tonsillectomy Additional Past Surgical History / Comment(s): COLONOSCOPY. BILAT CATARACTS. PTBA Lt leg; PTBA w/ stent Rt leg. Past Anesthesia/Blood Transfusion Reactions: No Reported Reaction Past Psychological History: No Psychological Hx Reported Smoking Status: Former smoker Past Alcohol Use History: None Reported Past Drug Use History: None Reported - Past Family History Mother Family Medical History: Cancer Father Family Medical History: CVA/TIA General Exam - General Exam Comments Initial Comments: Is a well-developed well-nourished awake alert male Limitations: no limitations General appearance: alert, in no apparent distress Head exam: Present: atraumatic, normocephalic, normal inspection Eye exam: Present: normal appearance, PERRL, EOMI. Absent: scleral icterus, conjunctival injection, periorbital swelling ENT exam: Present: mucous membranes dry Neck exam: Present: normal inspection, full ROM, other (No center JVD or bruits). Absent: tenderness, meningismus, lymphadenopathy Respiratory exam: Present: normal lung sounds bilaterally. Absent: respiratory distress, wheezes, rales, rhonchi, stridor Cardiovascular Exam: Present: regular rate, normal rhythm, normal heart sounds. Absent: systolic murmur, diastolic murmur, rubs, gallop, clicks GI/Abdominal exam: Present: soft, normal bowel sounds. Absent: distended, tenderness, guarding, rebound, rigid, bruit, pulsatile mass Extremities exam: Present: normal inspection, full ROM, normal capillary refill. Absent: tenderness, pedal edema, joint swelling, calf tenderness Back exam: Present: normal inspection Neurological exam: Present: alert, oriented X3, CN II-XII intact Psychiatric exam: Present: normal affect, normal mood Skin exam: Present: warm, dry, intact, normal color. Absent: rash Course Vital Signs 12/26/21 10:45 Temperature 98.4 F Pulse Rate 66 Respiratory 20 Rate Blood Pressure 106/62 O2 Sat by Pulse 93 L Oximetry EKG Findings - EKG Results: EKG: interpreted by MYKE, sinus rhythm (Sinus rhythm first-degree AV block rate 67 DC interval 212 QRS duration 100 QT since QTC 394/410 st-t wave changes) Medical Decision Making - Medical Decision Making I did discuss [employer] the patient and his daughter. I did recommend admission to the syncopal episode patient apparently was sitting in a wheelchair and then slumped over briefly with stiffening of his extremities this lasted perhaps 10 seconds patient is refusing admission since time would rather go back to his nu rsing home will be discharged he is also demonstrate some evidence of find depletion. - Lab Data Result diagrams: 12/26/21 10:53 12/26/21 10:53 Lab Results 12/26/21 12/26/21 12/26/21 Range/Units 10:53 10:53 10:53 WBC 7.0 (3.8-10.6) k/uL RBC 4.68 (4.30-5.90) m/uL Hgb 13.4 (13.0-17.5) gm/dL Hct 39.9 (39.0-53.0) % MCV 85.3 (80.0-100.0) fL MCH 28.6 (25.0-35.0) pg MCHC 33.5 (31.0-37.0) g/dL RDW 14.7 (11.5-15.5) % Plt Count 357 (150-450) k/uL MPV 7.1 Neutrophils % 68 % Lymphocytes % 17 % Monocytes % 8 % Eosinophils % 3 % Basophils % 1 % Neutrophils # 4.8 (1.3-7.7) k/uL Lymphocytes # 1.2 (1.0-4.8) k/uL Monocytes # 0.6 (0-1.0) k/uL Eosinophils # 0.2 (0-0.7) k/uL Basophils # 0.1 (0-0.2) k/uL Hypochromasia Slight PT 10.7 (9.0-12.0) sec INR 1.0 (<1.2) APTT 19.8 L (22.0-30.0) sec Sodium 132 L (137-145) mmol/L Potassium 4.7 (3.5-5.1) mmol/L Chloride 99 (98-107) mmol/L Carbon Dioxide 21 L (22-30) mmol/L Anion Gap 12 mmol/L BUN 17 (9-20) mg/dL Creatinine 0.80 (0.66-1.25) mg/dL Est GFR (CKD-EPI)AfAm >90 (>60 ml/min/1.73 sqM) Est GFR (CKD-EPI)NonAf 84 (>60 ml/min/1.73 sqM) Glucose 214 H (74-99) mg/dL Calcium 9.2 (8.4-10.2) mg/dL Magnesium 1.8 (1.6-2.3) mg/dL Total Bilirubin 1.0 (0.2-1.3) mg/dL AST 13 L (17-59) U/L ALT 13 (4-49) U/L Alkaline Phosphatase 76 (38-126) U/L Creatine Kinase 38 L (55-170) U/L Troponin I (0.000-0.034) ng/mL Total Protein 6.5 (6.3-8.2) g/dL Albumin 3.9 (3.5-5.0) g/dL Urine Color Urine Appearance (Clear) Urine pH (5.0-8.0) Ur Specific [place] (1.001-1.035) Urine Protein (Negative) Urine Glucose (UA) (Negative) Urine Ketones (Negative) Urine Blood (Negative) Urine Nitrite (Negative) Urine Bilirubin (Negative) Urine Urobilinogen (<2.0) mg/dL Ur Leukocyte Esterase (Negative) 12/26/21 12/26/21 Range/Units 10:53 10:53 WBC (3.8-10.6) k/uL RBC (4.30-5.90) m/uL Hgb (13.0-17.5) gm/dL Hct (39.0-53.0) % MCV (80.0-100.0) fL MCH (25.0-35.0) pg MCHC (31.0-37.0) g/dL RDW (11.5-15.5) % Plt Count (150-450) k/uL MPV Neutrophils % % Lymphocytes % % Monocytes % % Eosinophils % % Basophils % % Neutrophils # (1.3-7.7) k/uL Lymphocytes # (1.0-4.8) k/uL Monocytes # (0-1.0) k/uL Eosinophils # (0-0.7) k/uL Basophils # (0-0.2) k/uL Hypochromasia PT (9.0-12.0) sec INR (<1.2) APTT (22.0-30.0) sec Sodium (137-145) mmol/L Potassium (3.5-5.1) mmol/L Chloride (98-107) mmol/L Carbon Dioxide (22-30) mmol/L Anion Gap mmol/L BUN (9-20) mg/dL Creatinine (0.66-1.25) mg/dL Est GFR (CKD-EPI)AfAm (>60 ml/min/1.73 sqM) Est GFR (CKD-EPI)NonAf (>60 ml/min/1.73 sqM) Glucose (74-99) mg/dL Calcium (8.4-10.2) mg/dL Magnesium (1.6-2.3) mg/dL Total Bilirubin (0.2-1.3) mg/dL AST (17-59) U/L ALT (4-49) U/L Alkaline Phosphatase (38-126) U/L Creatine Kinase (55-170) U/L Troponin I <0.012 (0.000-0.034) ng/mL Total Protein (6.3-8.2) g/dL Albumin (3.5-5.0) g/dL Urine Color Yellow Urine Appearance Clear (Clear) Urine pH 6.5 (5.0-8.0) Ur Specific [place] 1.012 (1.001-1.035) Urine Protein Negative (Negative) Urine Glucose (UA) Negative (Negative) Urine Ketones Negative (Negative) Urine Blood Negative (Negative) Urine Nitrite Negative (Negative) Urine Bilirubin Negative (Negative) Urine Urobilinogen <2.0 (<2.0) mg/dL Ur Leukocyte Esterase Negative (Negative) - Radiology Data Radiology results: report reviewed (Image reviewed his old report no acute findings.), image reviewed Disposition Clinical Impression: Syncope due to orthostatic hypotension, Dehydration Disposition: Left Against Medical Advice Condition: Stable Instructions (If sedation given, give patient instructions): Syncope in Older Adults (ED), Dehydration (ED) Is patient prescribed a controlled substance at d/c from ED?: No Referrals: Melvina Chew MD [Primary Care Provider] - 1-2 days Decision Date: 12/26/21 Decision Time: 14:14
[2021-12-26 11:59] LABS: Partial Thromboplastin Time 19.8 sec (22.0-30.0)
[2021-12-26 13:23] LABS: Appearance,Urine Clear (Clear); Bilirubin,Urine Negative (Negative); Blood,Urine Negative (Negative); Color,Urine Yellow; Glucose,Urine (UA) Negative (Negative); Ketones,Urine Negative (Negative); Leukocyte Esterase,Urine Negative (Negative); Nitrite,Urine Negative (Negative); PH, Urine 6.5 (5.0-8.0); Protein,Urine Negative (Negative); Specific Gravity,Urine 1.012 (1.001-1.035); Urobilinogen,Urine <2.0 mg/dL (<2.0)
[2021-12-26 15:28] VITALS: BP 118/62; PULSE 70; RESP 16
[2021-12-26 15:31] VITALS: TEMP 98.6
== END 2021-12-26 14:30 | disposition left against medical advice (07) ==
LOC: EC 10:39
DX: I95.1 Orthostatic hypotension (principal); E86.0 Dehydration; E11.9 Type 2 diabetes mellitus without complications; E78.5 Hyperlipidemia, unspecified; I10 Essential (primary) hypertension; Z87.891 Personal history of nicotine dependence; Z79.899 Other long term (current) drug therapy; Z79.83 Long term (current) use of bisphosphonates; Z53.29 Procedure and treatment not carried out because of patient's decision for other reasons
CPT/HCPCS: 36415; 71046; 80053; 81003; 82550; 83735; 84484; 85025; 85610; 85730; 93005; 96360; 96361; 99284

== ENCOUNTER 2022-05-18 16:00 | Observation (INO) | payer MEDICARE, OTHER ==
--- NOTE | 2022-05-18 16:22 | ED ---
General Adult HPI - General Chief complaint: ENT Stated complaint: poss aspiration Time Seen by Provider: 05/18/22 16:05 Source: patient, EMS Mode of arrival: EMS Limitations: no limitations - History of Present Illness Initial comments: 82-year-old male with past medical history of dementia, diabetes, hypertension, hyperlipidemia who presents to the emergency department reporting difficulty swallowing. He states that yesterday he was eating breakfast when he choked on his food and since then he has had difficulty breathing and swallowing. It is r eported the patient's past medical history that he does have a history of dysphasia and therefore is on a pured diet. He denies eating any solid foods. Patient has extensive lung sounds upon arrival. He is a fairly poor historian and therefore cannot provide much history. States that he is aware that he has a mass on his lungs does not want to be treated for them. He admits to some pain in his throat. No chest pain. No fevers. Patient does have productive cough. No other alleviating, precipitating or modifying factors - Related Data Home Medications Medication Instructions Recorded Confirmed Simvastatin [Zocor] 20 mg PO HS@199907/16/17 05/18/22 Latanoprost/Pf [Latanoprost 0.005% 1 drop BOTH EYES HS@199905/01/21 05/18/22 Eye Drop] metFORMIN HCL [Glucophage] 500 mg PO BID@0800,1600 11/05/21 05/18/22 Albuterol Inhaler [Ventolin Hfa 2 puff INHALATION RT-Q4H PRN 12/26/21 05/18/22 Inhaler] Famotidine [Pepcid] 20 mg PO HS@199912/26/21 05/18/22 Magnesium Hydroxide [Milk of 2,400 mg PO Q72H PRN 12/26/21 05/18/22 Magnesia] carvediloL [Coreg] 3.125 mg PO BID@0800,1600 12/26/21 05/18/22 Acetaminophen Tab [Tylenol] 650 mg PO BID@0800,1600 05/10/22 05/18/22 Psyllium Husk 100% [Metamucil 6 mg PO DAILY@0800 05/10/22 05/18/22 Packet] Sennosides/Docusate Sodium [Senna 2 tab PO BID@0800,1600 05/10/22 05/18/22 Plus 8.6-50 mg Tablet] polyethylene glycoL 3350 [Miralax] 17 gm PO DAILY@0800 05/10/22 05/18/22 Albuterol Nebulized [Ventolin 2.5 mg INHALATION RT-Q6H 05/18/22 05/18/22 Nebulized] Ativan Gel 2 mg TOPICAL Q8H 05/18/22 05/18/22 Clopidogrel [Plavix] 75 mg PO DAILY@0800 05/18/22 05/18/22 amLODIPine [Norvasc] 5 mg PO DAILY@0800 05/18/22 05/18/22 risperiDONE [RisperDAL] 1 mg PO HS@199905/18/22 05/18/22 Previous Rx's Medication Instructions Recorded Amoxic-Pot Clav 875-125Mg 1 each PO Q12HR #6 tab 05/21/22 [Augmentin 875-125] INSULIN ASPART (NovoLOG) [NovoLOG 0 unit SQ ACHS each 05/21/22 (formulary)] Allergies Allergy/AdvReac Type Severity Reaction Status Date / Time No Known Allergies Allergy Verified 05/18/22 16:56 Review of Systems ROS Statement: Those systems with pertinent positive or pertinent negative responses have been documented in the HPI. ROS Other: All systems not noted in ROS Statement are negative. Past Medical History Past Medical History: Diabetes Mellitus, Eye Disorder, Hyperlipidemia, Hypertension, Prostate Disorder, Vascular Disorder Additional Past Medical History / Comment(s): Glaucoma. Dysphagia. BPH. Dryness legs. History of Any Multi-Drug Resistant Organisms: None Reported Past Surgical History: Adenoidectomy, Tonsillectomy Additional Past Surgical History / Comment(s): COLONOSCOPY. BILAT CATARACTS. PTBA Lt leg; PTBA w/ stent Rt leg. Past Anesthesia/Blood Transfusion Reactions: No Reported Reaction Past Psychological History: No Psychological Hx Reported Smoking Status: Former smoker Past Alcohol Use History: None Reported Past Drug Use History: None Reported - Past Family History Mother Family Medical History: Cancer Father Family Medical History: CVA/TIA General Exam Limitations: no limitations General appearance: alert, in no apparent distress Head exam: Present: atraumatic, normocephalic, normal inspection Eye exam: Present: normal appearance, PERRL, EOMI. Absent: scleral icterus, conjunctival injection, periorbital swelling ENT exam: Present: normal exam, mucous membranes moist Neck exam: Present: normal inspection. Absent: tenderness, meningismus, ly mphadenopathy Respiratory exam: Present: rales. Absent: respiratory distress, wheezes, rhonchi, stridor Cardiovascular Exam: Present: regular rate, normal rhythm, normal heart sounds. Absent: systolic murmur, diastolic murmur, rubs, gallop, clicks GI/Abdominal exam: Present: soft, normal bowel sounds. Absent: distended, tenderness, guarding, rebound, rigid Extremities exam: Present: normal inspection, full ROM, normal capillary refill. Absent: tenderness, pedal edema, joint swelling, calf tenderness Back exam: Present: normal inspection Neurological exam: Present: alert, oriented X3, CN II-XII intact Psychiatric exam: Present: normal affect, normal mood Skin exam: Present: warm, dry, intact, normal color. Absent: rash Course Vital Signs 05/18/22 05/18/22 05/18/22 16:03 17:50 18:12 Temperature 98.2 F Pulse Rate 73 69 66 Respiratory 20 18 Rate Blood Pressure 149/72 123/58 121/59 O2 Sat by Pulse 96 99 99 Oximetry 05/18/22 05/18/22 05/18/22 19:49 19:59 21:59 Temperature Pulse Rate 64 65 Respiratory 20 Rate Blood Pressure 118/61 O2 Sat by Pulse 93 L Oximetry Medical Decision Making - Medical Decision Making Was pt. sent in by a medical professional or institution (, PA, [employer], urgent care, hospital, or residential...) When possible be specific @ -Extended-care facility Did you speak to anyone other than the patient for history (EMS, parent, family, police, friend...)? What history was obtained from this source @ -EMS Did you review nursing and triage notes (agree or disagree)? Why? @ -I reviewed and agree with nursing and triage notes Were old charts reviewed (outside hosp., previous admission, EMS record, old EKG, old radiological studies, urgent care reports/EKG's, residential records)? Report findings @ -Old chart was reviewed at the patient was just discharged from our facility Differential Diagnosis (chest pain, altered mental status, abdominal pain women, abdominal pain men, vaginal bleeding, weakness, fever, dyspnea, syncope, headac he, dizziness, GI bleed, back pain, seizure, CVA, palpatations, mental health, musculoskeletal)? @ -Differential Dyspnea: Coronary syndrome, arrhythmia, tamponade, asthma, COPD, pulmonary embolism, pneumonia, pneumothorax, pulmonary effusion, anaphylaxis, diabetic ketoacidosis, flailed chest, pulmonary contusion, diaphragmatic rupture, anemia, neuromuscular, this is not meant to be an all-inclusive list. EKG interpreted by me (3pts min.). @ -Yes X-rays interpreted by me (1pt min.). @ -Yes CT interpreted by me (1pt min.). @ -None done U/S interpreted by me (1pt. min.). @ -None done What testing was considered but not performed or refused? (CT, X-rays, U/S, labs)? Why? @ -None What meds were considered but not given or refused? Why? @ -None Did you discuss the management of the patient with other professionals (professionals i.e. , PA, [employer], lab, RT, psych nurse, social services manager, casting supervisor, teacher, mortgage loan officer, field case manager)? Give summary @ -Admitting physician Was smoking cessation discussed for >3mins.? @ -No Was critical care preformed (if so, how long)? @ -No Were there social determinants of health that impacted care today? How? (Homelessness, low income, unemployed, alcoholism, drug addiction, t ransportation, low edu. Level, literacy, decrease access to med. care, prison, rehab)? @ -Dementia and residing at rehab Was there de-escalation of care discussed even if they declined (Discuss DNR or withdrawal of care, Hospice)? DNR status @ -Patient is a DO NOT RESUSCITATE What co-morbidities impacted this encounter? (DM, HTN, Smoking, COPD, CAD, Cancer, CVA, ARF, Chemo, Hep., AIDS, mental health diagnosis, sleep apnea, morbid obesity)? @ -Dysphasia, recurrent pneumonia, dementia Was patient admitted / discharged? Hospital course, mention meds given and route, prescriptions, significant lab abnormalities, going to OR and other pertinent info. @ -Upon arrival patient was placed into room 5. A thorough history and physical exam was performed. Patient does have audible rales at the lung bases. DuoNeb breathing treatment is ordered. Laboratory studies were conducted. White count is elevating again at 11.9. Chest x-ray was performed which continues to demonstrate bilateral posterior basilar pulmonary airspace infiltrates. This is discussed with the patient. Recommended admission again due to patient's clinical audible respiratory status. He is started on Rocephin and azithromycin. Breathing treatment ordered. Spoke with Jennifer from [facility] who agreed to admit the patient Undiagnosed new problem with uncertain prognosis? @ -No Drug Therapy requiring intensive monitoring for toxicity (Heparin, Nitro, Insulin, Cardizem)? @ -No Were any procedures done? @ -No Diagnosis/symptom? @ -acute aspiration pneumonitis Acute, or Chronic, or Acute on Chronic? @ -acute Uncomplicated (without systemic symptoms) or Complicated (systemic symptoms)? @ -complicated Side effects of treatment? @ -allergic reaction Exacerbation, Progression, or Severe Exacerbation? @ -yes Poses a threat to life or bodily function? How? (Chest pain, [place], [place], pneumonia, PE, COPD, DKA, ARF, appy, cholecystitis, CVA, Diverticulitis, Homicidal, Suicida l, threat to staff... and all critical care pts) @ -yes - Lab Data Result diagrams: 05/18/22 16:37 05/18/22 16:37 Lab Results 05/18/22 05/18/22 05/18/22 Range/Units 16:37 16:37 16:37 WBC 11.9 H (3.8-10.6) k/uL RBC 4.46 (4.30-5.90) m/uL Hgb 13.1 (13.0-17.5) gm/dL Hct 39.0 (39.0-53.0) % MCV 87.5 (80.0-100.0) fL MCH 29.3 (25.0-35.0) pg MCHC 33.5 (31.0-37.0) g/dL RDW 14.1 (11.5-15.5) % Plt Count 284 (150-450) k/uL MPV 6.7 Neutrophils % 79 % Lymphocytes % 10 % Monocytes % 6 % Eosinophils % 2 % Basophils % 0 % Neutrophils # 9.4 H (1.3-7.7) k/uL Lymphocytes # 1.2 (1.0-4.8) k/uL Monocytes # 0.7 (0-1.0) k/uL Eosinophils # 0.2 (0-0.7) k/uL Basophils # 0.0 (0-0.2) k/uL Sodium 134 L (137-145) mmol/L Potassium 4.1 (3.5-5.1) mmol/L Chloride 99 (98-107) mmol/L Carbon Dioxide 29 (22-30) mmol/L Anion Gap 6 mmol/L BUN 19 (9-20) mg/dL Creatinine 0.67 (0.66-1.25) mg/dL Est GFR (CKD-EPI)AfAm >90 (>60 ml/min/1.73 sqM) Est GFR (CKD-EPI)NonAf 90 (>60 ml/min/1.73 sqM) Glucose 174 H (74-99) mg/dL Estimated Ave Glu mg/dL Hemoglobin A1c (0.0-6.0) % Plasma Lactic Acid Edgar 1.1 (0.7-2.0) mmol/L Calcium 9.0 (8.4-10.2) mg/dL Total Bilirubin 1.4 H (0.2-1.3) mg/dL AST 12 L (17-59) U/L ALT 19 (4-49) U/L Alkaline Phosphatase 60 (38-126) U/L NT-Pro-B Natriuret Pep pg/mL Total Protein 6.1 L (6.3-8.2) g/dL Albumin 3.5 (3.5-5.0) g/dL 05/18/22 05/18/22 Range/Units 16:37 16:37 WBC (3.8-10.6) k/uL RBC (4.30-5.90) m/uL Hgb (13.0-17.5) gm/dL Hct (39.0-53.0) % MCV (80.0-100.0) fL MCH (25.0-35.0) pg MCHC (31.0-37.0) g/dL RDW (11.5-15.5) % Plt Count (150-450) k/uL MPV Neutrophils % % Lymphocytes % % Monocytes % % Eosinophils % % Basophils % % Neutrophils # (1.3-7.7) k/uL Lymphocytes # (1.0-4.8) k/uL Monocytes # (0-1.0) k/uL Eosinophils # (0-0.7) k/uL Basophils # (0-0.2) k/uL Sodium (137-145) mmol/L Potassium (3.5-5.1) mmol/L Chloride (98-107) mmol/L Carbon Dioxide (22-30) mmol/L Anion Gap mmol/L BUN (9-20) mg/dL Creatinine (0.66-1.25) mg/dL Est GFR (CKD-EPI)AfAm (>60 ml/min/1.73 sqM) Est GFR (CKD-EPI)NonAf (>60 ml/min/1.73 sqM) Glucose (74-99) mg/dL Estimated Ave Glu mg/dL 175 Hemoglobin A1c 7.7 H (0.0-6.0) % Plasma Lactic Acid Edgar (0.7-2.0) mmol/L Calcium (8.4-10.2) mg/dL Total Bilirubin (0.2-1.3) mg/dL AST (17-59) U/L ALT (4-49) U/L Alkaline Phosphatase (38-126) U/L NT-Pro-B Natriuret Pep 381 pg/mL Total Protein (6.3-8.2) g/dL Albumin (3.5-5.0) g/dL Disposition Clinical Impression: Acute respiratory insufficiency, Aspiration into airway Disposition: ADMITTED IP TO THIS HOSP Is patient prescribed a controlled substance at d/c from ED?: No Time of Disposition: 18:27 Decision to Admit Reason: Admit from EC Decision Date: 05/18/22 Decision Time: 18:27
--- NOTE | 2022-05-18 16:51 | XR ---
EXAMINATION TYPE: XR chest 2V DATE OF EXAM: 05/18/2022 COMPARISON: 05/11/2022 HISTORY: Difficulty swallowing TECHNIQUE: 2 views FINDINGS: There is infiltrate at the posterior lung bases on the lateral view. No heart failure. Hear t size is normal. Bony thorax is intact. There are no hilar masses. IMPRESSION: There is bilateral posterior basilar pulmonary airspace infiltrate. No heart failure seen .
[2022-05-18 17:06] LABS: Basophils % (A) 0 %; Eosinophils # (A) 0.2 k/uL (0-0.7); Eosinophils % (A) 2 %; HGB 13.1 gm/dL (13.0-17.5); Lymphocytes # (A) 1.2 k/uL (1.0-4.8); Lymphocytes % (A) 10 %; MCH 29.3 pg (25.0-35.0); MCHC 33.5 g/dL (31.0-37.0); MCV 87.5 fL (80.0-100.0); Mean Platelet Volume 6.7; Monocytes # (A) 0.7 k/uL (0-1.0); Monocytes % (A) 6 %; Neutrophils # (A) 9.4 k/uL (1.3-7.7); Neutrophils % (A) 79 %; Platelet Count 284 k/uL (150-450); RBC 4.46 m/uL (4.30-5.90); RDW 14.1 % (11.5-15.5); WBC 11.9 k/uL (3.8-10.6)
[2022-05-18 17:59] LABS: ALT 19 U/L (4-49); AST 12 U/L (17-59); African American GFR (CKD) >90 (>60 ml/min/1.73 sqM); Albumin 3.5 g/dL (3.5-5.0); Alkaline Phosphatase 60 U/L (38-126); Anion Gap 6 mmol/L; Blood Urea Nitrogen 19 mg/dL (9-20); Carbon Dioxide 29 mmol/L (22-30); Chloride 99 mmol/L (98-107); Glucose 174 mg/dL (74-99); Non-African American GFR(CKD) 90 (>60 ml/min/1.73 sqM); Potassium 4.1 mmol/L (3.5-5.1); Sodium 134 mmol/L (137-145); Total Bilirubin 1.4 mg/dL (0.2-1.3); Total Protein 6.1 g/dL (6.3-8.2)
[2022-05-18] MEDS ORDERED: IPRATROPIUM-ALBUTEROL 3 ML NEB INHALATION STA (18:15)
[2022-05-18] MEDS ORDERED: PNEUMONIA PROTOCOL UTILIZED 1 EACH MISC PO PRN (18:27)
[2022-05-18] MEDS ORDERED: AZITHROMYCIN 500 MG in SODIUM CHLORIDE 0.9% 250 ML IVPB STA (18:27)
[2022-05-18] MEDS ORDERED: IPRATROPIUM-ALBUTEROL 3 ML NEB INHALATION PRN (18:27)
[2022-05-19] MEDS ORDERED: ALBUTEROL NEBULIZED 2.5 MG/3 ML INHALATION PRN (05:57)
[2022-05-19 07:07] LABS: Glucose,Whole Blood 139 mg/dL (70-110)
--- NOTE | 2022-05-19 07:37 | XR ---
EXAMINATION TYPE: XR chest 2V DATE OF EXAM: 05/19/2022 7:32 AM COMPARISON: Chest radiographs from 05/18/2022, CT chest 05/12/2022 TECHNIQUE: XR chest 2V Frontal and lateral views of the chest. CLINICAL INDICATION:Male, 82 years old with history of pneumonia; FINDINGS: Lungs/Pleura: Similar airspace opacities within the bilateral lung bases best appreciated on the late ral view. No pneumothorax or pleural effusion. Pulmonary vascularity: Unremarkable. Heart/mediastinum: Cardiomediastinal silhouette is unremarkable. Musculoskeletal: Multiple level degenerative disc disease changes seen throughout the spine. No acute osseous amount. IMPRESSION: Similar bilateral posterior basilar pulmonary air space opacities which may represent infiltrates jania colton atelectasis in the appropriate clinical setting.
[2022-05-19] MEDS ORDERED: DEXTROSE 50% SYRINGE 50 ML IVP PRN ×4 (07:49→10:08)
[2022-05-19] MEDS ORDERED: ALBUTEROL NEBULIZED 2.5 MG/3 ML INHALATION SCH (08:00)
[2022-05-19] MEDS ORDERED: MAGNESIUM HYDROXIDE 2,400 MG/10 ML CUP PO PRN (10:06)
[2022-05-19] MEDS: amLODIPine 5 MG TAB PO SCH (10:50)
[2022-05-19] MEDS: carvediloL 3.125 MG TAB PO SCH ×2 (10:50→17:12)
[2022-05-19] MEDS: CLOPIDOGREL 75 MG TAB PO SCH (10:50)
[2022-05-19] MEDS ORDERED: LACTULOSE 20 GM/30 ML CUP PO ONE (11:00)
[2022-05-19 11:15] LABS: Glucose,Whole Blood 279 mg/dL (70-110)
[2022-05-19] MEDS ORDERED: ALBUTEROL HFA INHALER INHALATION PRN (11:33)
--- NOTE | 2022-05-19 12:25 | P.CNPUL ---
History of Present Illness Consult date: 05/19/22 Requesting physician: Quincy Nassar Reason for consult: dyspnea, cough Chief complaint: Coughing, choking with meals History of present illness: This is an 82-year-old male patient with a history of advanced chronic obstructive pulmonary disease, peripheral vascular disease, hyperlipidemia, gla ucoma, right upper lobe opacity noted on previous CAT scans of the chest, chronic constipation, history of dysphagia, atherosclerosis, osteoarthritis, Alzheimer's dementia, BPH, chronic anxiety, diabetes mellitus type 2, hypertension, chronic pain, history of cellulitis of the lower extremities. He was just here in the hospital for worsening shortness of breath and a COPD exacerbation. Admitted on 05/10/2022 and discharged on 05/15/2022. He was brought back here from the extended care facility again last evening with reports of difficulty swallowing, choking on food and shortness of breath. We were consulted for possible aspiration pneumonia. Chest x-ray reveals mild bilateral posterior basilar airspace infiltrates. No evidence of congestive heart failure. No hilar masses. White count 11.9. Hemoglobin 13.1. Sodium 134. Potassium 4.1. Bicarb 29. BUN 19. Creatinine 0.67. Glucose 174. ProBNP 381. He is seen today in consultation on the regular medical floor. He is sitting up in bed. Awake and alert in no acute distress. He is maintaining good O2 saturations in the 90s on room air. He's afebrile. No tachycardia. No tachypnea. Blood pressure stable. He does have a weak voice. He states he has been having difficulty swallowing for about one year. He was initiated on bronchodilators and antibiotics in the form of ceftriaxone and azithromycin. Review of Systems REVIEW OF SYSTEMS: CONSTITUTIONAL: Denies any recent significant weight loss or weight gain. EYES: Denies change in vision. EARS, NOSE, MOUTH, THROAT: Denies headaches, denies sore throat. CARDIOVASCULAR: Denies chest pain, palpitations or syncopal episodes. RESPIRATORY: Positive for shortness of breath, cough, congestion no hemoptysis. GASTROINTESTINAL: Denies change in appetite, denies abdominal pain GENITOURINARY: Denies hematuria, denies infections. MUSKULOSKELETAL: Denies pain, denies swelling. INTEGUMENTARY: Denies rash, denies eczema. NEUROLOGICAL: Denies recent memory loss, no recent seizure activity. PSYCHIATRIC: Denies anxiety, denies depression. HEMATOLOGIC/LYMPHATIC: Denies anemia, denies enlarged lymph nodes. Past Medical History Past Medical History: Diabetes Mellitus, Eye Disorder, Hyperlipidemia, Hyp ertension, Prostate Disorder, Vascular Disorder Additional Past Medical History / Comment(s): Glaucoma. Dysphagia. BPH. Dryness legs. History of Any Multi-Drug Resistant Organisms: None Reported Past Surgical History: Adenoidectomy, Tonsillectomy Additional Past Surgical History / Comment(s): COLONOSCOPY. BILAT CATARACTS. PTBA Lt leg; PTBA w/ stent Rt leg. Past Anesthesia/Blood Transfusion Reactions: No Reported Reaction Past Psychological History: No Psychological Hx Reported Smoking Status: Former smoker Past Alcohol Use History: None Reported Past Drug Use History: None Reported - Past Family History Mother Family Medical History: Cancer Father Family Medical History: CVA/TIA Medications and Allergies Home Medications Medication Instructions Recorded Confirmed Type Simvastatin [Zocor] 20 mg PO HS@199907/16/17 05/18/22 History Latanoprost/Pf [Latanoprost 0.005% 1 drop BOTH EYES HS@199905/01/21 05/18/22 History Eye Drop] metFORMIN HCL [Glucophage] 500 mg PO BID@0800,1600 11/05/21 05/18/22 History Albuterol Inhaler [Ventolin Hfa 2 puff INHALATION RT-Q4H PRN 12/26/21 05/18/22 History Inhaler] Famotidine [Pepcid] 20 mg PO HS@199912/26/21 05/18/22 History Losartan Potassium 100 mg PO DAILY@0800 12/26/21 05/18/22 History Magnesium Hydroxide [Milk of 2,400 mg PO Q72H PRN 12/26/21 05/18/22 History Magnesia] carvediloL [Coreg] 3.125 mg PO BID@0800,1600 12/26/21 05/18/22 History Acetaminophen Tab [Tylenol] 650 mg PO BID@0800,1600 05/10/22 05/18/22 History Psyllium Husk 100% [Metamucil 6 mg PO DAILY@0800 05/10/22 05/18/22 History Packet] Sennosides/Docusate Sodium [Senna 2 tab PO BID@0800,1600 05/10/22 05/18/22 History Plus 8.6-50 mg Tablet] polyethylene glycoL 3350 [Miralax] 17 gm PO DAILY@0800 05/10/22 05/18/22 History Albuterol Nebulized [Ventolin 2.5 mg INHALATION RT-Q6H 05/18/22 05/18/22 History Nebulized] Ativan Gel 2 mg TOPICAL Q8H 05/18/22 05/18/22 History Clopidogrel [Plavix] 75 mg PO DAILY@0800 05/18/22 05/18/22 History amLODIPine [Norvasc] 5 mg PO DAILY@0800 05/18/22 05/18/22 History cefUROXime axetiL [Cefuroxime] 500 mg PO BID@0800,1600 05/18/22 05/18/22 History predniSONE See Taper PO DAILY@0800 05/18/22 05/18/22 History risperiDONE [RisperDAL] 1 mg PO HS@199905/18/22 05/18/22 History Allergies Allergy/AdvReac Type Severity Reaction Status Date / Time No Known Allergies Allergy Verified 05/18/22 16:56 Physical Exam Vitals: Vital Signs Temp Pulse Pulse Pulse Resp BP BP 05/19/22 08:40 64 61 16 05/19/22 07:08 98.0 F 64 16 05/19/22 02:06 97.8 F 61 20 145/70 05/18/22 23:00 20 05/18/22 22:42 97.4 F L 64 18 142/73 05/18/22 21:59 20 118/61 05/18/22 19:59 65 05/18/22 19:49 64 05/18/22 18:12 66 121/59 05/18/22 17:50 69 18 123/58 05/18/22 16:03 98.2 F 73 20 149/72 BP Pulse Ox 05/19/22 08:40 05/19/22 07:08 144/74 93 L 05/19/22 02:06 92 L 05/18/22 23:00 05/18/22 22:42 95 05/18/22 21:59 93 L 05/18/22 19:59 05/18/22 19:49 05/18/22 18:12 99 05/18/22 17:50 99 05/18/22 16:03 96 Intake and Output 05/18/22 05/19/22 05/19/22 22:59 06:59 14:59 Intake Total 250 Balance 250 Intake: Oral 250 Other: Voiding Method Diaper Diaper Incontinent Incontinent # Voids 1 Weight 74.843 kg GENERAL EXAM: Alert, hard of hearing, 82-year-old male patient on room air, comfortable in no apparent distress. HEAD: Normocephalic. EYES: Normal reaction of pupils, equal size. NOSE: Clear with pink turbinates. THROAT: No erythema or exudates. NECK: No masses, no JVD. CHEST: No chest wall deformity. LUNGS: Equal air entry with no crackles, wheeze, rhonchi or dullness. CVS: S1 and S2 normal with no audible murmur, regular rhythm. ABDOMEN: No hepatosplenomegaly, normal bowel sounds, no guarding or rigidity. SPINE: No scoliosis or deformity SKIN: No rashes CENTRAL NERVOUS SYSTEM: No focal deficits, tone is normal in all 4 extremities. EXTREMITIES: There is no peripheral edema. No clubbing, no cyanosis. Peripheral pulses are intact. Results - Laboratory Findings CBC and BMP: 05/18/22 16:37 05/18/22 16:37 Abnormal lab findings: Abnormal Labs 05/18/22 05/18/22 05/18/22 16:37 16:37 16:37 WBC 11.9 H Neutrophils # 9.4 H Sodium 134 L Glucose 174 H POC Glucose (mg/dL) Hemoglobin A1c 7.7 H Total Bilirubin 1.4 H AST 12 L Total Protein 6.1 L 05/19/22 05/19/22 07:06 11:13 WBC Neutrophils # Sodium Glucose POC Glucose (mg/dL) 139 H 279 H Hemoglobin A1c Total Bilirubin AST Total Protein - Diagnostic Findings Chest x-ray: image reviewed Assessment and Plan Assessment: Acute aspiration in a patient with a known history of dysphagia. Chest x-ray shows no significant areas of infiltrate. Currently stable and on room air. Recent admission for an acute exacerbation of chronic obstructive pulmonary disease Right upper lobe pulmonary nodule measuring 2.5 x 2.0 cm, smaller in size upon follow-up CAT scan and a dominant right lower lobe mass measuring 4.3 x 3.9 x 3.8 cm with internal calcification which has remained stable upon subsequent CAT scan findings History of dementia Diabetes Hyperlipidemia Hypertension BPH Peripheral vascular disease with previous stenting of the right lower extremity Former smoker [facility] resident with a very poor baseline performance and functional status Plan The patient was seen and evaluated Chest x-ray, labs and medications reviewed Stable and on room air, bronchodilators as needed Consult speech therapy for swallow evaluation Change antibiotics to Zosyn for now We will continue to follow and make further recommendations based on his clinical status I have personally seen and examined the patient, performed the documentation and the assessment and plan as written. Number of minutes spent on the visit: 20.
[2022-05-19] MEDS: PIPERACILLIN-TAZOBACTAM 3.375 GM in SODIUM CHLORIDE 0.9% 100 ML IVPB SCH ×2 (13:37→21:11)
[2022-05-19] MEDS: INSULIN ASPART (NovoLOG) 100 UNIT/ML VIAL SQ SCH ×3 (13:41→21:11)
[2022-05-19] MEDS: ACETAMINOPHEN TAB 325 MG TAB PO SCH (17:11)
[2022-05-19] MEDS: SENNOSIDES-DOCUSATE SODIUM 1 EACH TAB PO SCH (17:12)
[2022-05-19 17:14] LABS: Glucose,Whole Blood 208 mg/dL (70-110)
[2022-05-19 20:21] LABS: Glucose,Whole Blood 218 mg/dL (70-110)
--- NOTE | 2022-05-19 20:30 | P.HPIM ---
History of Present Illness H&P Date: 05/19/22 Chief Complaint: Joking, short of breath This is a 82-year-old patient, follows with Dr. Zimmer. Chronic stable medical conditions include diabetes, hypertension, hyperlipidemia, BPH, glaucoma, BPH, some dysphagia. PAD. Patient is at the [facility] EMS was called as patient is having trouble swallowing. Patient states his been going on for a few days. At least for 2 days. Has a weak cough. There is able to tolerate being this morning. Some cough. No fever no chills. Patient's had no bowel movement for last 7 days. Patient does not walk. Stop smoking over 25 years ago. Patient is currently propped up in bed. Did tolerate his breakfast. Review of systems: GEN.: Tired EYES: None HEENT: None NECK: None RESPIRATORY: As above CARDIOVASCULAR: None GASTROINTESTINAL: Constipation GENITOURINARY: None MUSCULOSKELETAL: Joint pains LYMPHATICS: None HEMATOLOGICAL: None PSYCHIATRY: None NEUROLOGICAL: None Past medical history to include: Diabetes, hypertension, hyperlipidemia, BPH, glaucoma, BPH, dry legs PAD with intervention Social history: Currently at [facility]. Patient smoked from age of 16 for about 60 years. 2 packs a day. Also history of alcoholism stopped over 20 years ago. Physical examination: VITAL SIGNS: 98.2, 73, 20, 149/72, 96% room air upon presentation GENERAL: BMI 23.7, reclining bed not in distress. EYES: Pupils equal. Conjunctiva normal. HEENT: External appearance of nose and ears normal, oral cavity grossly normal. NECK: JVD not raised; masses not palpable. HEART: First and second heart sounds are normal; no edema. LUNGS: Respiratory rate increased; decreased breath sounds. ABDOMEN: Soft, nontender, liver spleen not palpable, no masses palpable. PSYCH: Alert and oriented x3; mood and affect normal. MUSCULOSKELETAL:No Clubbing/cyanosis;muscles-grossly intact. OA NEUROLOGICAL: Cranial nerves grossly intact; no facial asymmetry, power in the lower extremity 1/5, and sensation grossly intact. Weak cough LYMPHATICS: No lymph nodes palpable in the axilla and neck INVESTIGATIONS, reviewed in the clinical context: White count 11.9 hemoglobin 13.1 platelets 24 potassium 4.1 creatinine 0.67 Urine Legionella antigen negative Chest x-ray film personally reviewed by me-questionable infiltrate Assessment and plan: -Intermittent trouble swallowing. No choking. Patient able to eat breakfast this morning. Considers presby esophagus. Will order barium swallow. Also c onsult speech therapist. -COPD in a previous smoker Ventolin when necessary -Diabetes mellitus type 2 on oral hypoglycemic Glucophage. Follow Accu-Cheks -Essential hypertension Coreg 3.125 mg twice a day. Amlodipine 5 mg day. Losartan 100 mg day. -GERD Pepcid 20 mg daily at bedtime Chronic constipation Senokot-S 2 tablets by mouth twice a day. No BM for 7 days. Lactulose 30 g 1 now. Add Metamucil. -DO NOT RESUSCITATE Resume indications. Barium swallow. Consult speech. Care was discussed with the patient. Past Medical History Past Medical History: Diabetes Mellitus, Eye Disorder, Hyperlipidemia, Hypertension, Prostate Disorder, Vascular Disorder Additional Past Medical History / Comment(s): Glaucoma. Dysphagia. BPH. Dryness legs. History of Any Multi-Drug Resistant Organisms: None Reported Past Surgical History: Adenoidectomy, Tonsillectomy Additional Past Surgical History / Comment(s): COLONOSCOPY. BILAT CATARACTS. PTBA Lt leg; PTBA w/ stent Rt leg. Past Anesthesia/Blood Transfusion Reactions: No Reported Reaction Past Psychological History: No Psychological Hx Reported Smoking Status: Former smoker Past Alcohol Use History: None Reported Past Drug Use History: None Reported - Past Family History Mother Family Medical History: Cancer Father Family Medical History: CVA/TIA Medications and Allergies Home Medications Medication Instructions Recorded Confirmed Type Simvastatin [Zocor] 20 mg PO HS@199907/16/17 05/18/22 History Latanoprost/Pf [Latanoprost 0.005% 1 drop BOTH EYES HS@199905/01/21 05/18/22 History Eye Drop] metFORMIN HCL [Glucophage] 500 mg PO BID@0800,1600 11/05/21 05/18/22 History Albuterol Inhaler [Ventolin Hfa 2 puff INHALATION RT-Q4H PRN 12/26/21 05/18/22 History Inhaler] Famotidine [Pepcid] 20 mg PO HS@199912/26/21 05/18/22 History Losartan Potassium 100 mg PO DAILY@0800 12/26/21 05/18/22 History Magnesium Hydroxide [Milk of 2,400 mg PO Q72H PRN 12/26/21 05/18/22 History Magnesia] carvediloL [Coreg] 3.125 mg PO BID@0800,1600 12/26/21 05/18/22 History Acetaminophen Tab [Tylenol] 650 mg PO BID@0800,1600 05/10/22 05/18/22 History Psyllium Husk 100% [Metamucil 6 mg PO DAILY@0800 05/10/22 05/18/22 History Packet] Sennosides/Docusate Sodium [Senna 2 tab PO BID@0800,1600 05/10/22 05/18/22 History Plus 8.6-50 mg Tablet] polyethylene glycoL 3350 [Miralax] 17 gm PO DAILY@0800 05/10/22 05/18/22 History Albuterol Nebulized [Ventolin 2.5 mg INHALATION RT-Q6H 05/18/22 05/18/22 History Nebulized] Ativan Gel 2 mg TOPICAL Q8H 05/18/22 05/18/22 History Clopidogrel [Plavix] 75 mg PO DAILY@0800 05/18/22 05/18/22 History amLODIPine [Norvasc] 5 mg PO DAILY@0800 05/18/22 05/18/22 History cefUROXime axetiL [Cefuroxime] 500 mg PO BID@0800,1600 05/18/22 05/18/22 History predniSONE See Taper PO DAILY@0800 05/18/22 05/18/22 History risperiDONE [RisperDAL] 1 mg PO HS@199905/18/22 05/18/22 History Allergies Allergy/AdvReac Type Severity Reaction Status Date / Time No Known Allergies Allergy Verified 05/18/22 16:56 Physical Exam Vitals: Vital Signs Temp Pulse Pulse Pulse Resp BP BP 05/19/22 07:08 98.0 F 64 16 05/19/22 02:06 97.8 F 61 20 145/70 05/18/22 23:00 20 05/18/22 22:42 97.4 F L 64 18 142/73 05/18/22 21:59 20 118/61 05/18/22 19:59 65 05/18/22 19:49 64 05/18/22 18:12 66 121/59 05/18/22 17:50 69 18 123/58 05/18/22 16:03 98.2 F 73 20 149/72 BP Pulse Ox 05/19/22 07:08 144/74 93 L 05/19/22 02:06 92 L 05/18/22 23:00 05/18/22 22:42 95 05/18/22 21:59 93 L 05/18/22 19:59 05/18/22 19:49 05/18/22 18:12 99 05/18/22 17:50 99 05/18/22 16:03 96 Intake and Output 05/18/22 05/19/22 05/19/22 22:59 06:59 14:59 Intake Total 250 Balance 250 Intake: Oral 250 Other: Voiding Method Diaper Incontinent # Voids 1 Weight 74.843 kg Results CBC & Chem 7: 05/18/22 16:37 05/18/22 16:37 Labs: Abnormal Lab Results - Last 24 Hours (Table) 05/18/22 05/18/22 05/19/22 Range/Units 16:37 16:37 07:06 WBC 11.9 H (3.8-10.6) k/uL Neutrophils # 9.4 H (1.3-7.7) k/uL Sodium 134 L (137-145) mmol/L Glucose 174 H (74-99) mg/dL POC Glucose (mg/dL) 139 H (70-110) mg/dL Total Bilirubin 1.4 H (0.2-1.3) mg/dL AST 12 L (17-59) U/L Total Protein 6.1 L (6.3-8.2) g/dL Thrombosis Risk Factor Assmnt - Choose All That Apply Any of the Below Risk Factors Present?: Yes Each Factor Represents 1 point: Medical pt on bed rest, Obesity (BMI >25) Other Risk Factors: Yes Each Risk Factor Represents 3 Points: Age 75 years or older Other congenital or acquired thrombophilia - If yes, enter type in comment: No Thrombosis Risk Factor Assessment Total Risk Factor Score: 5 Thrombosis Risk Factor Assessment Level: High Risk
[2022-05-19] MEDS: ATORVASTATIN 10 MG TAB PO SCH (21:11)
[2022-05-19] MEDS: FAMOTIDINE 20 MG TAB PO SCH (21:11)
[2022-05-19] MEDS: risperiDONE 1 MG TAB PO SCH (21:11)
[2022-05-19] MEDS: LATANOPROST 0.005% OPHTH DROPS 2.5 ML BTL BOTH EYES SCH (21:44)
[2022-05-20] MEDS: PIPERACILLIN-TAZOBACTAM 3.375 GM in SODIUM CHLORIDE 0.9% 100 ML IVPB SCH ×3 (04:06→21:01)
[2022-05-20 07:39] LABS: Glucose,Whole Blood 210 mg/dL (70-110)
[2022-05-20] MEDS: INSULIN ASPART (NovoLOG) 100 UNIT/ML VIAL SQ SCH ×4 (09:25→21:01)
[2022-05-20] MEDS: CLOPIDOGREL 75 MG TAB PO SCH (09:34)
[2022-05-20] MEDS: carvediloL 3.125 MG TAB PO SCH ×2 (09:34→16:20)
[2022-05-20] MEDS: amLODIPine 5 MG TAB PO SCH (09:34)
[2022-05-20] MEDS: ACETAMINOPHEN TAB 325 MG TAB PO SCH ×2 (09:34→16:21)
[2022-05-20] MEDS: SENNOSIDES-DOCUSATE SODIUM 1 EACH TAB PO SCH ×2 (09:35→16:20)
[2022-05-20] MEDS: polyethylene glycoL 3350 17 GM POWD.PACK PO SCH (10:14)
[2022-05-20] MEDS: PSYLLIUM HUSK 100% 6 GM PACKET PO SCH (10:14)
--- NOTE | 2022-05-20 11:18 | FL ---
EXAMINATION TYPE: FL barium swallow w video DATE OF EXAM: 05/20/2022 MODIFIED SWALLOW / DEGLUTITION STUDY CLINICAL HISTORY: Dysphagia. Choking when eating. TECHNIQUE: Deglutition study is performed utilizing thin liquid barium, honey and nectar thick liqui d barium, barium thick applesauce, and barium coated cracker. A total of 84 seconds of fluoroscopic t radha. Several spot images saved to PACS. COMPARISON: None. FINDINGS: The oral and pharyngeal phases show some mild delay in initiation and with satisfactory pro pagation with all modalities tested. Some difficulty with mastication is seen with solid modalities t ested. There is penetration with thin liquid barium without aspiration. No aspiration with other moda lities tested. Mild pharyngeal residue was appreciated. IMPRESSION: Penetration with thin liquid barium. No aspiration observed. Please refer to speech thera pist notes for further details if necessary.
--- NOTE | 2022-05-20 11:59 | P.PN ---
Subjective Progress Note Date: 05/20/22 This is an 82-year-old male patient with a history of advanced chronic obstructive pulmonary disease, peripheral vascular disease, hyperlipidemia, glaucoma, right upper lobe opacity noted on previous CAT scans of the chest, chronic constipation, history of dysphagia, atherosclerosis, osteoarthritis, Alzheimer's dementia, BPH, chronic anxiety, diabetes mellitus type 2, hypertension, chronic pain, history of cellulitis of the lower extremities. He was just here in the hospital for worsening shortness of breath and a COPD exacerbation. Admitted on 05/10/2022 and discharged on 05/15/2022. He was brou ght back here from the [facility] care facility again last evening with reports of difficulty swallowing, choking on food and shortness of breath. We were consulted for possible aspiration pneumonia. Chest x-ray reveals mild bilateral posterior basilar airspace infiltrates. No evidence of congestive heart failure. No hilar masses. White count 11.9. Hemoglobin 13.1. Sodium 134. Potassium 4.1. Bicarb 29. BUN 19. Creatinine 0.67. Glucose 174. ProBNP 381. He is seen today in consultation on the regular medical floor. He is sitting up in bed. Awake and alert in no acute distress. He is maintaining good O2 saturations in the 90s on room air. He's afebrile. No tachycardia. No tach ypnea. Blood pressure stable. He does have a weak voice. He states he has been having difficulty swallowing for about one year. He was initiated on bronchodilators and antibiotics in the form of ceftriaxone and azithromycin. The patient is seen today 05/20/2022 in follow-up on the regular medical floor. He is currently sitting up in bed. Awake and alert in no acute distress. He is maintaining good O2 saturations in the 90s on room air currently. He's been afebrile. Hemodynamically stable. He was seen and evaluated by speech therapy for his dysphagia. Recommendations for continued pured texture diet with downgraded to a nectar thick liquids to ensure safe oral intake. He did undergo a modified barium swallow today that revealed penetration with thin liquid barium. No aspiration observed. Blood cultures revealed no growth. Blood sugar 210. He is continued on Zosyn. Objective - Vital Signs Vital signs: Vital Signs Temp 97.9 F 05/20/22 07:38 Pulse 67 05/20/22 08:40 Resp 15 05/20/22 08:40 BP 130/67 05/20/22 07:38 Pulse Ox 93 L 05/20/22 07:38 FiO2 Intake & Output 05/19/22 05/20/22 05/20/22 18:59 06:59 18:59 Other: Voiding Method Diaper Diaper Diaper Incontinent Incontinent Incontinent # Voids 1 2 2 # Bowel Movements 1 1 - Exam GENERAL EXAM: Alert, 82-year-old male patient, on room air, comfortable in no apparent distress. HEAD: Normocephalic. EYES: Normal reaction of pupils, equal size. NOSE: Clear with pink turbinates. THROAT: No erythema or exudates. NECK: No masses, no JVD. CHEST: No chest wall deformity. LUNGS: Equal air entry with no crackles, wheeze, rhonchi or dullness. CVS: S1 and S2 normal with no audible murmur, regular rhythm. ABDOMEN: No hepatosplenomegaly, normal bowel sounds, no guarding or rigidity. SPINE: No scoliosis or deformity SKIN: No rashes CENTRAL NERVOUS SYSTEM: No focal deficits, tone is normal in all 4 extremities. EXTREMITIES: There is no peripheral edema. No clubbing, no cyanosis. Peripheral pulses are intact. - Labs CBC & Chem 7: 05/18/22 16:37 05/18/22 16:37 Labs: Abnormal Lab Results - Last 24 Hours (Table) 05/19/22 05/19/22 05/20/22 Range/Units 17:13 20:20 07:38 POC Glucose (mg/dL) 208 H 218 H 210 H (70-110) mg/dL Microbiology - Last 24 Hours (Table) 05/18/22 19:25 Blood Culture - Preliminary Blood No Growth after 24 hours 05/18/22 19:10 Blood Culture - Preliminary Blood No Growth after 24 hours Assessment and Plan Assessment: Acute aspiration in a patient with a known history of dysphagia. Chest x-ray shows no significant areas of infiltrate. Currently stable and on room air. Barium swallow results revealed penetration with thin liquid barium. patient observed. Speech therapy following. Remains on Zosyn. Recent admission for an acute exacerbation of chronic obstructive pulmonary disease Right upper lobe pulmonary nodule measuring 2.5 x 2.0 cm, smaller in size upon follow-up CAT scan and a dominant right lower lobe mass measuring 4.3 x 3.9 x 3.8 cm with internal calcification which has remained stable upon subsequent CAT scan findings History of dementia Diabetes Hyperlipidemia Hypertension BPH Peripheral vascular disease with previous stenting of the right lower extremity Former smoker group home resident with a very poor baseline performance and functional status Plan The patient was seen and evaluated Barium swallow results noted Zosyn could be changed to Augmentin once cleared Stable and on room air, bronchodilators as needed Discharge once cleared by medicine We will continue to follow I have personally seen and examined the patient, performed the documentation and the assessment and plan as written. Number of minutes spent on the visit: 10.
[2022-05-20 12:22] LABS: Glucose,Whole Blood 192 mg/dL (70-110)
--- NOTE | 2022-05-20 14:26 | P.PN ---
Progress Note - Text Progress Note Date: 05/20/22 Chief Complaint: choking, short of breath This is a 82-year-old patient, follows with Dr. Zimmer. Chronic stable medical conditions include diabetes, hypertension, hyperlipidemia, BPH, glaucoma, BPH, some dysphagia. PAD. Patient is at the [facility] EMS was called as patient is having trouble swallowing. Patient states his been going on for a few days. At least for 2 days. Has a weak cough. There is able to tolerate being this morning. Some cough. No fever no chills. Patient's had no bowel movement for last 7 days. Patient does not walk. Stop smoking over 25 years ago. Patient is currently propped up in bed. Did tolerate his breakfast. 05/20/2022: Patient nothing by mouth this morning. Taking his medications. Barium swallow showed penetration with thin liquid barium. No aspiration. Patient is felt to have mild impairment. Has been put on. Pured Diet with nectar thick liquids. Active Medications Acetaminophen (Acetaminophen Tab 325 Mg Tab) 650 mg PO BID@0800,1600 COUNT INCLUDES THE [facility] Last Admin: 05/20/22 09:34 Dose: Not Given Albuterol Sulfate (Albuterol Hfa Inhaler) 2 puff INHALATION RT-Q4H PRN PRN Reason: Shortness Of Breath Amlodipine Besylate (Amlodipine 5 Mg Tab) 5 mg PO DAILY@0800 COUNT INCLUDES THE [facility] Last Admin: 05/20/22 09:34 Dose: 5 mg Atorvastatin Calcium (Atorvastatin 10 Mg Tab) 10 mg PO HS@1999 COUNT INCLUDES THE [facility] Last Admin: 05/19/22 21:11 Dose: 10 mg Carvedilol (Carvedilol 3.125 Mg Tab) 3.125 mg PO BID@0800,1600 COUNT INCLUDES THE [facility] Last Admin: 05/20/22 09:34 Dose: 3.125 mg Clopidogrel Bisulfate (Clopidogrel 75 Mg Tab) 75 mg PO DAILY@0800 COUNT INCLUDES THE [facility] Last Admin: 05/20/22 09:34 Dose: 75 mg Dextrose/Water (Dextrose 50% Syringe 50 Ml) 25 ml IVP PER PROTOCOL PRN; Protocol PRN Reason: Hypoglycemia Dextrose/Water (Dextrose 50% Syringe 50 Ml) 50 ml IVP PER PROTOCOL PRN; Protocol PRN Reason: Hypoglycemia Famotidine (Famotidine 20 Mg Tab) 20 mg PO HS@1999 COUNT INCLUDES THE [facility] Last Admin: 05/19/22 21:11 Dose: 20 mg Piperacillin Sod/Tazobactam (Sod 3.375 gm/ Sodium Chloride) 100 mls @ 25 mls/hr IVPB Q8H COUNT INCLUDES THE [facility]; Protocol Last Admin: 05/20/22 12:57 Dose: 25 mls/hr Insulin Aspart (Insulin Aspart (Novolog) 100 Unit/Ml Vial) 0 unit SQ ACHS COUNT INCLUDES THE [facility]; Protocol Last Admin: 05/20/22 12:56 Dose: 2 unit Latanoprost (Latanoprost 0.005% Ophth Drops 2.5 Ml Btl) 1 drops BOTH EYES HS@1999 COUNT INCLUDES THE [facility] Last Admin: 05/19/22 21:44 Dose: 1 drops Magnesium Hydroxide (Magnesium Hydroxide 2,400 Mg/10 Ml Cup) 2,400 mg PO Q72H PRN PRN Reason: Constipation Miscellaneous Information (Pneumonia Protocol Utilized 1 Each Misc) 1 each PO ONCE PRN PRN Reason: Per Protocol Polyethylene Glycol (Polyethylene Glycol 3350 17 Gm Powd.Pack) 17 gm PO DAILY@0800 COUNT INCLUDES THE [facility] Last Admin: 05/20/22 10:14 Dose: Not Given Psyllium Hydrophilic Mucilloid (Psyllium Husk 100% 6 Gm Packet) 6 gm PO DAILY@0800 COUNT INCLUDES THE [facility] Last Admin: 05/20/22 10:14 Dose: Not Given Risperidone (Risperidone 1 Mg Tab) 1 mg PO HS@1999 COUNT INCLUDES THE [facility] Last Admin: 05/19/22 21:11 Dose: 1 mg Senna/Docusate Sodium (Sennosides-Docusate Sodium 1 Each Tab) 2 each PO BID@0800,1600 COUNT INCLUDES THE [facility] Last Admin: 05/20/22 09:35 Dose: Not Given Past medical history to include: Diabetes, hypertension, hyperlipidemia, BPH, glaucoma, BPH, dry legs PAD with intervention Social history: Currently at [facility]. Patient smoked from age of 16 for about 60 years. 2 packs a day. Also history of alcoholism stopped over 20 years ago. Physical examination: VITAL SIGNS: 97.7, 62, 15, 1:30/62, 98% on room air GENERAL: reclining bed not in distress. EYES: Pupils equal. Conjunctiva normal. HEENT: External appearance of nose and ears normal, oral cavity grossly normal. NECK: JVD not raised; masses not palpable. HEART: First and second heart sounds are normal; no edema. LUNGS: Respiratory rate increased; decreased breath sounds. ABDOMEN: Soft, nontender, liver spleen not palpable, no masses palpable. PSYCH: Alert and oriented x3; mood and affect normal. MUSCULOSKELETAL:No Clubbing/cyanosis;muscles-grossly intact. OA NEUROLOGICAL: Cranial nerves grossly intact; no facial asymmetry, power in the lower extremity 1/5, and sensation grossly intact. Weak cough INVESTIGATIONS, reviewed in the clinical context: Modified barium swallow: Some thin liquid penetration. Mild dysphagia White count 11.9 hemoglobin 13.1 platelets 24 potassium 4.1 creatinine 0.67 Urine Legionella antigen negative Chest x-ray film personally reviewed by me-questionable infiltrate Assessment and plan: -Mild dysphagia per modified barium swallow. Seen by speech therapy. Pured diet with honey thickened liquid. -COPD in a previous smoker Ventolin when necessary -Diabetes mellitus type 2 on oral hypoglycemic Glucophage. Follow Accu-Cheks -Essential hypertension Coreg 3.125 mg twice a day. Amlodipine 5 mg day. Losartan 100 mg day. -GERD Pepcid 20 mg daily at bedtime Chronic constipation Senokot-S 2 tablets by mouth twice a day. No BM for 7 days. Lactulose 30 g 1 now. Add Metamucil. -DO NOT RESUSCITATE Pured diet. Honey thickened liquid. We will watch overnight. If stable discharged tomorrow.
[2022-05-20 17:54] LABS: Glucose,Whole Blood 204 mg/dL (70-110)
[2022-05-20 20:47] LABS: Glucose,Whole Blood 168 mg/dL (70-110)
[2022-05-20] MEDS: risperiDONE 1 MG TAB PO SCH (21:01)
[2022-05-20] MEDS: ATORVASTATIN 10 MG TAB PO SCH (21:01)
[2022-05-20] MEDS: FAMOTIDINE 20 MG TAB PO SCH (21:01)
[2022-05-20] MEDS: LATANOPROST 0.005% OPHTH DROPS 2.5 ML BTL BOTH EYES SCH (21:02)
[2022-05-21] MEDS: PIPERACILLIN-TAZOBACTAM 3.375 GM in SODIUM CHLORIDE 0.9% 100 ML IVPB SCH (04:53)
[2022-05-21 07:38] LABS: Glucose,Whole Blood 173 mg/dL (70-110)
[2022-05-21 07:48] VITALS: BP 122/63; PULSE 76; RESP 20; TEMP 98
[2022-05-21] MEDS ORDERED: AMOXIC-POT CLAV 875-125MG 1 EACH TAB PO SCH (09:00)
[2022-05-21] MEDS: amLODIPine 5 MG TAB PO SCH (09:13)
[2022-05-21] MEDS: SENNOSIDES-DOCUSATE SODIUM 1 EACH TAB PO SCH ×2 (09:13→17:06)
[2022-05-21] MEDS: ACETAMINOPHEN TAB 325 MG TAB PO SCH ×2 (09:13→17:07)
[2022-05-21] MEDS: CLOPIDOGREL 75 MG TAB PO SCH (09:14)
[2022-05-21] MEDS: carvediloL 3.125 MG TAB PO SCH ×2 (09:14→17:07)
[2022-05-21] MEDS: INSULIN ASPART (NovoLOG) 100 UNIT/ML VIAL SQ SCH ×2 (09:14→14:00)
[2022-05-21] MEDS: PSYLLIUM HUSK 100% 6 GM PACKET PO SCH (09:15)
[2022-05-21] MEDS: polyethylene glycoL 3350 17 GM POWD.PACK PO SCH (09:15)
--- NOTE | 2022-05-21 11:13 | P.PN ---
Subjective Progress Note Date: 05/21/22 This is an 82-year-old male patient with a history of advanced chronic obstructive pulmonary disease, peripheral vascular disease, hyperlipidemia, glaucoma, right upper lobe opacity noted on previous CAT scans of the chest, chronic constipation, history of dysphagia, atherosclerosis, osteoarthritis, Alzheimer's dementia, BPH, chronic anxiety, diabetes mellitus type 2, hypertension, chronic pain, history of cellulitis of the lower extremities. He was just here in the hospital for worsening shortness of breath and a COPD exacerbation. Admitted on 05/10/2022 and discharged on 05/15/2022. He was brou ght back here from the [facility] care facility again last evening with reports of difficulty swallowing, choking on food and shortness of breath. We were consulted for possible aspiration pneumonia. Chest x-ray reveals mild bilateral posterior basilar airspace infiltrates. No evidence of congestive heart failure. No hilar masses. White count 11.9. Hemoglobin 13.1. Sodium 134. Potassium 4.1. Bicarb 29. BUN 19. Creatinine 0.67. Glucose 174. ProBNP 381. He is seen today in consultation on the regular medical floor. He is sitting up in bed. Awake and alert in no acute distress. He is maintaining good O2 saturations in the 90s on room air. He's afebrile. No tachycardia. No tach ypnea. Blood pressure stable. He does have a weak voice. He states he has been having difficulty swallowing for about one year. He was initiated on bronchodilators and antibiotics in the form of ceftriaxone and azithromycin. The patient is seen today 05/20/2022 in follow-up on the regular medical floor. He is currently sitting up in bed. Awake and alert in no acute distress. He is maintaining good O2 saturations in the 90s on room air currently. He's been afebrile. Hemodynamically stable. He was seen and evaluated by speech therapy for his dysphagia. Recommendations for continued pured texture diet with downgraded to a nectar thick liquids to ensure safe oral intake. He did undergo a modified barium swallow today that revealed penetration with thin liquid barium. No aspiration observed. Blood cultures revealed no growth. Blood sugar 210. He is continued on Zosyn. The patient is seen today 05/21/2022 in follow-up on the regular medical floor. He is sitting up with and alert. Having breakfast with assistance. Swelling well. No cough or congestion. Maintaining good O2 saturations in the 90s on room air. Afebrile. Hemodynamically stable. Blood cultures reveal no growth. Blood sugar 173. He remains on antibiotics in the form of Zosyn. Objective - Vital Signs Vital signs: Vital Signs Temp 98 F 05/21/22 07:47 Pulse 76 05/21/22 07:47 Resp 20 05/21/22 07:47 BP 122/63 05/21/22 07:47 Pulse Ox 92 L 05/21/22 07:47 FiO2 Intake & Output 05/20/22 05/21/22 05/21/22 18:59 06:59 18:59 Intake Total 740 Balance 740 Intake: Oral 740 Other: Voiding Method Diaper Diaper Incontinent Incontinent # Voids 3 3 # Bowel Movements 1 - Exam GENERAL EXAM: Alert, 82-year-old male patient, on room air, sitting up in bed, comfortable in no apparent distress. HEAD: Normocephalic. EYES: Normal reaction of pupils, equal size. NOSE: Clear with pink turbinates. THROAT: No erythema or exudates. NECK: No masses, no JVD. CHEST: No chest wall deformity. LUNGS: Equal air entry with no crackles, wheeze, rhonchi or dullness. CVS: S1 and S2 normal with no audible murmur, regular rhythm. ABDOMEN: No hepatosplenomegaly, normal bowel sounds, no guarding or rigidity. SPINE: No scoliosis or deformity SKIN: No rashes CENTRAL NERVOUS SYSTEM: No focal deficits, tone is normal in all 4 extremities. EXTREMITIES: There is no peripheral edema. No clubbing, no cyanosis. Peripheral pulses are intact. - Labs CBC & Chem 7: 05/18/22 16:37 05/18/22 16:37 Labs: Abnormal Lab Results - Last 24 Hours (Table) 05/20/22 05/20/22 05/20/22 Range/Units 12:21 17:52 20:45 POC Glucose (mg/dL) 192 H 204 H 168 H (70-110) mg/dL 05/21/22 Range/Units 07:34 POC Glucose (mg/dL) 173 H (70-110) mg/dL Microbiology - Last 24 Hours (Table) 05/18/22 19:10 Blood Culture - Preliminary Blood No Growth after 48 hours 05/18/22 19:25 Blood Culture - Preliminary Blood No Growth after 48 hours Assessment and Plan Assessment: Acute aspiration in a patient with a known history of dysphagia. Chest x-ray shows no significant areas of infiltrate. Currently stable and on room air. Barium swallow results revealed penetration with thin liquid barium. patient observed. Speech therapy following. Remains on Zosyn. Recent admission for an acute exacerbation of chronic obstructive pulmonary disease Right upper lobe pulmonary nodule measuring 2.5 x 2.0 cm, smaller in size upon follow-up CAT scan and a dominant right lower lobe mass measuring 4.3 x 3.9 x 3.8 cm with internal calcification which has remained stable upon subsequent CAT scan findings History of dementia Diabetes Hyperlipidemia Hypertension BPH Peripheral vascular disease with previous stenting of the right lower extremity Former smoker detention resident with a very poor baseline performance and functional status Plan The patient was seen and evaluated Medications reviewed Zosyn changed to Augmentin 3 days Stable and on room air, bronchodilators as needed Cleared for discharge from the pulmonary standpoint Resides at [facility] I have personally seen and examined the patient, performed the documentation and the assessment and plan as written. Number of minutes spent on the visit: 10.
[2022-05-21 11:15] LABS: Glucose,Whole Blood 190 mg/dL (70-110)
--- NOTE | 2022-05-21 13:57 | P.DS ---
Providers Date of admission: 05/18/22 18:29 Expected date of discharge: 05/21/22 Attending physician: Quincy Nassar Consults: 05/19/22 10:41 Consult Physician Routine Consulting Provider: Re Garay Consult Reason/Comments: sob Do you want consulting provider notified?: Yes Primary care physician: [facility] Course: Chief Complaint: choking, short of breath This is a 82-year-old patient, follows with Dr. Zimmer. Chronic stable medical conditions include diabetes, hypertension, hyperlipidemia, BPH, glaucoma, BPH, some dysphagia. PAD. Patient is at the [facility] EMS was called as patient is having trouble swallowing. Patient states his been going on for a few days. At least for 2 days. Has a weak cough. There is able to tolerate being this morning. Some cough. No fever no chills. Patient's had no bowel movement for last 7 days. Patient does not walk. Stop smoking over 25 years ago. Patient is currently propped up in bed. Did tolerate his breakfast. 05/20/2022: Patient nothing by mouth this morning. Taking his medications. Barium swallow showed penetration with thin liquid barium. No aspiration. Patient is felt to have mild impairment. Has been put on. Pured Diet with nectar thick liquids. 05/21/2022: Reclining in bed. Comfortable. Occasional cough. Continue with the modified diet. Change to Augmentin for 3 days. Per pulmonary. Smoked a adult protective caseworker. Return to [facility]. Discussion and discharge planning more than 35 minutes Past medical history to include: Diabetes, hypertension, hyperlipidemia, BPH, glaucoma, BPH, dry legs PAD with intervention Social history: Currently at [facility]. Patient smoked from age of 16 for about 60 years. 2 packs a day. Also history of alcoholism stopped over 20 years ago. Physical examination: VITAL SIGNS: 98, 76, 20, 122/63, 92% room air GENERAL: reclining bed EYES: Pupils equal. Conjunctiva normal. HEENT: External appearance of nose and ears normal, oral cavity grossly normal. NECK: JVD not raised; masses not palpable. HEART: First and second heart sounds are normal; no edema. LUNGS: Respiratory rate normal; decreased breath sounds. ABDOMEN: Soft, nontender, liver spleen not palpable, no masses palpable. PSYCH: Alert and oriented x3; mood and affect normal. MUSCULOSKELETAL:No Clubbing/cyanosis;muscles-grossly intact. OA NEUROLOGICAL: Cranial nerves grossly intact; no facial asymmetry, power in the lower extremity 1/5, and sensation grossly intact. Weak cough INVESTIGATIONS, reviewed in the clinical context: Modified barium swallow: Some thin liquid penetration. Mild dysphagia White count 11.9 hemoglobin 13.1 platelets 24 potassium 4.1 creatinine 0.67 Urine Legionella antigen negative Chest x-ray film personally reviewed by me-questionable infiltrate Assessment and plan: -Acute pneumonitis. Changed to oral antibiotic for 3 more days per pulmonary. -Mild dysphagia per modified barium swallow. Seen by speech therapy. Pured diet with honey thickened liquid. -COPD in a previous smoker Ventolin when necessary -Diabetes mellitus type 2 on oral hypoglycemic Glucophage. Follow Accu-Cheks -Essential hypertension Coreg 3.125 mg twice a day. Amlodipine 5 mg day. Losartan 100 mg day. -GERD Pepcid 20 mg daily at bedtime Chronic constipation Senokot-S 2 tablets by mouth twice a day. No BM for 7 days. Lactulose 30 g 1 now. Add Metamucil. -DO NOT RESUSCITATE -Guardian[facility]ina Disposition: [facility] Plan - Discharge Summary Discharge Rx Participant: No New Discharge Prescriptions: New Amoxic-Pot Clav 875-125Mg [Augmentin 875-125] 1 each PO Q12HR #6 tab INSULIN ASPART (NovoLOG) [NovoLOG (formulary)] 0 unit SQ ACHS each Continue Simvastatin [Zocor] 20 mg PO HS@2000 Latanoprost/Pf [Latanoprost 0.005% Eye Drop] 1 drop BOTH EYES HS@2000 Famotidine [Pepcid] 20 mg PO HS@2000 Sennosides/Docusate Sodium [Senna Plus 8.6-50 mg Tablet] 2 tab PO BID@0800,1600 Albuterol Nebulized [Ventolin Nebulized] 2.5 mg INHALATION RT-Q6H Clopidogrel [Plavix] 75 mg PO DAILY@0800 metFORMIN HCL [Glucophage] 500 mg PO BID@0800,1600 carvediloL [Coreg] 3.125 mg PO BID@0800,1600 Albuterol Inhaler [Ventolin Hfa Inhaler] 2 puff INHALATION RT-Q4H PRN PRN Reason: Shortness Of Breath Magnesium Hydroxide [Milk of Magnesia] 2,400 mg PO Q72H PRN PRN Reason: Constipation Acetaminophen Tab [Tylenol] 650 mg PO BID@0800,1600 polyethylene glycoL 3350 [Miralax] 17 gm PO DAILY@0800 Psyllium Husk 100% [Metamucil Packet] 6 mg PO DAILY@0800 Ativan Gel 2 mg TOPICAL Q8H amLODIPine [Norvasc] 5 mg PO DAILY@0800 risperiDONE [RisperDAL] 1 mg PO HS@1999 Discontinued Losartan Potassium 100 mg PO DAILY@0800 cefUROXime axetiL [Cefuroxime] 500 mg PO BID@0800,1600 predniSONE See Taper PO DAILY@0800 Discharge Medication List Simvastatin [Zocor] 20 mg PO HS@199907/16/17 [History] Latanoprost/Pf [Latanoprost 0.005% Eye Drop] 1 drop BOTH EYES HS@199905/01/21 [History] metFORMIN HCL [Glucophage] 500 mg PO BID@0800,1600 11/05/21 [History] Albuterol Inhaler [Ventolin Hfa Inhaler] 2 puff INHALATION RT-Q4H PRN 12/26/21 [History] Famotidine [Pepcid] 20 mg PO HS@199912/26/21 [History] Magnesium Hydroxide [Milk of Magnesia] 2,400 mg PO Q72H PRN 12/26/21 [History] carvediloL [Coreg] 3.125 mg PO BID@0800,1600 12/26/21 [History] Acetaminophen Tab [Tylenol] 650 mg PO BID@0800,1600 05/10/22 [History] Psyllium Husk 100% [Metamucil Packet] 6 mg PO DAILY@0800 05/10/22 [History] Sennosides/Docusate Sodium [Senna Plus 8.6-50 mg Tablet] 2 tab PO BID@0800,1600 05/10/22 [History] polyethylene glycoL 3350 [Miralax] 17 gm PO DAILY@0800 05/10/22 [History] Albuterol Nebulized [Ventolin Nebulized] 2.5 mg INHALATION RT-Q6H 05/18/22 [History] Ativan Gel 2 mg TOPICAL Q8H 05/18/22 [History] Clopidogrel [Plavix] 75 mg PO DAILY@0800 05/18/22 [History] amLODIPine [Norvasc] 5 mg PO DAILY@0800 05/18/22 [History] risperiDONE [RisperDAL] 1 mg PO HS@199905/18/22 [History] Amoxic-Pot Clav 875-125Mg [Augmentin 875-125] 1 each PO Q12HR #6 tab 05/21/22 [Rx] INSULIN ASPART (NovoLOG) [NovoLOG (formulary)] 0 unit SQ ACHS each 05/21/22 [Rx] Follow up Appointment(s)/Referral(s): Kalin Zimmer DO [Primary Care Provider] - 1-2 days Activity/Diet/Wound Care/Special Instructions: Diet per speech therapy
== END 2022-05-21 19:47 ==
LOC: EC 16:00 → 5NMEDONC 18:29
PROVIDERS: ADMIT Hospitalist; ATTEND Hospitalist
DX: J69.0 Pneumonitis due to inhalation of food and vomit (principal); R13.10 Dysphagia, unspecified; J44.9 Chronic obstructive pulmonary disease, unspecified; E11.51 Type 2 diabetes mellitus with diabetic peripheral angiopathy without gangrene; I10 Essential (primary) hypertension; K21.9 Gastro-esophageal reflux disease without esophagitis; K59.09 Other constipation; E78.5 Hyperlipidemia, unspecified; I73.9 Peripheral vascular disease, unspecified; H40.9 Unspecified glaucoma; M19.90 Unspecified osteoarthritis, unspecified site; G30.9 Alzheimer's disease, unspecified; F02.80 Dementia in other diseases classified elsewhere, unspecified severity, without behavioral disturbance, psychotic disturbance, mood disturbance, and anxiety; N40.0 Benign prostatic hyperplasia without lower urinary tract symptoms; F41.9 Anxiety disorder, unspecified; F10.21 Alcohol dependence, in remission; Z66 Do not resuscitate; G89.29 Other chronic pain; Z98.42 Cataract extraction status, left eye; Z98.41 Cataract extraction status, right eye; Z98.890 Other specified postprocedural states; Z95.820 Peripheral vascular angioplasty status with implants and grafts; Z82.3 Family history of stroke; Z87.891 Personal history of nicotine dependence; Z79.84 Long term (current) use of oral hypoglycemic drugs; Z79.899 Other long term (current) drug therapy; Z79.4 Long term (current) use of insulin; Z79.02 Long term (current) use of antithrombotics/antiplatelets
CPT/HCPCS: 96366 ×4; 96367 ×2; 96365; 99285; 36415; 94760; 92610; 92526; 92611; 83880; 80053; 87449; 83605; 85025; 87040; 83036; 74230; 71046 ×2; G0378 ×4; J2543 ×3; J0456; J0696 ×2